=== PATIENT | female | born 1945 | race Caucasian/White ===

== ENCOUNTER 2019-11-30 07:30 | Day surgery (SDC) | payer OTHER ==
[2019-11-29 10:15] LABS: Absolute Lymphocytes (CBC) 0.8 K/uL (0.7-4.9); Basophils % 0.4 % (0-1.3); Hematocrit 40.9 % (36.0-45.0); Lymphocytes % 8.5 % (15.3-44.8); MPV 9.9 fL (7.6-11.3); RBC Red Blood Cell Count 4.86 M/uL (3.86-4.86)
--- NOTE | 2019-11-29 10:18 | RAD REPORT ---
EXAM DESCRIPTION: Zaid Yates And [place] (2 Views)11/29/2019 10:09 am CLINICAL HISTORY: Preop for cardiac catheterization COMPARISON: 2016 FINDINGS: Small to moderate left pleural effusion is suspected Mild left lung opacities Right lung appears clear of acute infiltrate Heart is markedly enlarged IMPRESSION: Small to moderate left pleural effusion Mild left pulmonary opacities may represent pulmonary edema or pneumonia
[2019-11-29 10:19] LABS: Protime INR 1.04
[2019-11-29 10:24] LABS: Potassium 3.5 mmol/L (3.5-5.1)
--- NOTE | 2019-11-29 11:22 | EKG ---
Test Date: 2019-11-29 Test Time: 08:32:49 [employer] Developer: DIAZ MEASUREMENT RESULTS: Intervals: Rate: 82 DE: 154 QRSD: 108 QT: 400 QTc: 467 [place]: P: 43 DE: 154 QRS: 12 T: 203 INTERPRETIVE STATEMENTS: Sinus rhythm with occasional premature ventricular complexes Incomplete left bundle branch block Left ventricular hypertrophy with repolarization abnormality Abnormal ECG Compared to ECG 01/28/2008 08:57:48 Ventricular premature complex(es) now present Left bundle-branch block now present Electronically Signed On 11-29-19 11:21:18 CDT by Richmond Dove
--- OUTSIDE RECORDS SUMMARY | 2019-11-30 07:41 | XMS REPORT ---
:1945 Author Organization [employer] Care Team Providers Name Role Phone Bridger Segal Provider Role Unavailable Allergies, Adverse Reactions, Alerts Substance Reaction Event Type Amoxicillin Swelling Drug Allergy Problems Problem Type Condition Code Onset Dates Condition Status Assessment Cellulitis of right lower extremity L03.115 Active Problem Coronary artery disease involving I25.10 Active [place] coronary artery of [place] heart without angina pectoris Problem Allergic rhinitis, unspecified J30.9 Active seasonality, unspecified trigger Problem Osteoarthritis of left hip, M16.12 Active unspecified osteoarthritis type Problem Edema of lower extremity due to I87.2 Active peripheral venous insufficiency Problem Mixed hyperlipidemia E78.2 Active Problem GERD without esophagitis K21.9 Active Problem Congestive heart failure, I50.9 Active unspecified HF chronicity, unspecified heart failure type Problem HTN (hypertension), benign I10 Active Assessment Adult BMI 27.0-27.9 kg/sq m Z68.27 Active Assessment GERD without esophagitis K21.9 Active Assessment Congestive heart failure, I50.9 Active unspecified HF chronicity, unspecified heart failure type Assessment HTN (hypertension), benign I10 Active Assessment Coronary artery disease involving I25.10 Active [place] coronary artery of [place] heart without angina pectoris Assessment Mixed hyperlipidemia E78.2 Active Assessment Osteoarthritis of left hip, M16.12 Active unspecified osteoarthritis type Assessment Edema of lower extremity due to I87.2 Active peripheral venous insufficiency Medications Medication Code Code Instructions Start End Status Dosage System Date Date Pravastatin ND 44752414937 40 MG Orally Active 1 tablet Sodium Once a day Carvedilol ND 49554369377 3.125 MG Orally Active take 1 tab BID Fish Oil ND 36601459906 1000 MG Orally Active 1 capsule Once a day Furosemide ND 33918222854 40 MG Orally Active 1 tablet Once a day Entresto ND 89244353127 49-51 MG Orally Active 1 tablet Twice a day Montelukast ND 13626488667 10 MG Active TAKE 1 Sodium TABLET BY MOUTH EVERY DAY Doxycycline ND 65964095241 100 MG Orally Sep 21, Oct 01, Active 1 capsule Hyclate every 12 hrs 2019 2019 Results No Known Results Summary Purpose eClinicalWorks Submission
--- OUTSIDE RECORDS SUMMARY | 2019-11-30 07:41 | XMS REPORT ---
:1945 Author Organization [employer] Care Team Providers Name Role Phone Bridger Segal Provider Role Unavailable Allergies, Adverse Reactions, Alerts Substance Reaction Event Type N.K.D.A. Info Not Available Non Drug Allergy Problems Problem Type Condition Code Onset Dates Condition Status Assessment Allergic rhinitis, unspecified J30.9 Active seasonality, unspecified trigger Assessment Acute non-recurrent maxillary J01.00 Active sinusitis Assessment Upper respiratory tract infection, J06.9 Active unspecified type Problem Osteoarthritis of left hip, M16.12 Active unspecified osteoarthritis type Problem Congestive heart failure, I50.9 Active unspecified HF chronicity, unspecified heart failure type Problem Allergic rhinitis, unspecified J30.9 Active seasonality, unspecified trigger Problem GERD without esophagitis K21.9 Active Problem Coronary artery disease involving I25.10 Active [place] coronary artery of [place] heart without angina pectoris Problem HTN (hypertension), benign I10 Active Problem Mixed hyperlipidemia E78.2 Active Medications Medication Code Code Instructions Start End Status Dosage System Date Date Pravastatin [facility] 11319006965 40 MG Orally Active 1 tablet Sodium Once a day Carvedilol [facility] 09623158375 3.125 MG Orally Active take 1 tab BID Amoxicillin-Pot [facility] 89485820550 875-125 MG Aug 18, Aug 28, Active 1 tablet Clavulanate Orally every 12 2018 2019 hrs Furosemide ND 56142083952 40 MG Orally Active 1 tablet Once a day Montelukast ND 76002783400 10 MG Orally Aug 18, Active 1 tablet Sodium Once a day 2019 Entresto [facility] 33692698320 49-51 MG Orally Active 1 tablet Twice a day Fish Oil [facility] 00086602156 1000 MG Orally Active 1 capsule Once a day Results No Known Results Summary Purpose eClinicalWorks Submission
--- OUTSIDE RECORDS SUMMARY | 2019-11-30 07:41 | XMS REPORT ---
:1945 Author Organization [employer] Care Team Providers Name Role Phone Bridger Segal Provider Role Unavailable Allergies No Known Allergies Problems Problem Type Condition Code Onset Dates Condition Status Problem Congestive heart failure, I50.9 Active unspecified HF chronicity, unspecified heart failure type Problem HTN (hypertension), benign I10 Active Problem Osteoarthritis of left hip, M16.12 Active unspecified osteoarthritis type Problem Coronary artery disease involving I25.10 Active [place] coronary artery of [place] heart without angina pectoris Problem Mixed hyperlipidemia E78.2 Active Problem GERD without esophagitis K21.9 Active Medications No Known Medications Results No Known Results Summary Purpose eClinicalWorks Submission
--- OUTSIDE RECORDS SUMMARY | 2019-11-30 07:41 | XMS REPORT ---
:1945 Author Organization [employer] Care Team Providers Name Role Phone Bridger Segal Provider Role Unavailable Allergies, Adverse Reactions, Alerts Substance Reaction Event Type N.K.D.A. Info Not Available Non Drug Allergy Problems Problem Type Condition Code Onset Dates Condition Status Assessment Congestive heart failure, I50.9 Active unspecified HF chronicity, unspecified heart failure type Assessment Mixed hyperlipidemia E78.2 Active Assessment HTN (hypertension), benign I10 Active Assessment Adult BMI 27.0-27.9 kg/sq m Z68.27 Active Assessment GERD without esophagitis K21.9 Active Assessment Coronary artery disease involving I25.10 Active [place] coronary artery of [place] heart without angina pectoris Assessment Osteoarthritis of left hip, M16.12 Active unspecified osteoarthritis type Problem Congestive heart failure, I50.9 Active unspecified HF chronicity, unspecified heart failure type Problem HTN (hypertension), benign I10 Active Problem Osteoarthritis of left hip, M16.12 Active unspecified osteoarthritis type Problem Coronary artery disease involving I25.10 Active [place] coronary artery of [place] heart without angina pectoris Problem Mixed hyperlipidemia E78.2 Active Problem GERD without esophagitis K21.9 Active Medications Medication Code Code Instructions Start End Status Dosage System Date Date Carvedilol [facility] 20319464806 3.125 MG Orally Oct 01, Active take 1 tab BID 2018 Pravastatin ND 91210573355 40 MG Orally Active 1 tablet Sodium Once a day Furosemide ND 47534039081 40 MG Orally Active 1 tablet Once a day Entresto [facility] 19422371956 49-51 MG Orally Active 1 tablet Twice a day Fish Oil ND 92409412964 1000 MG Orally Active 1 capsule Once a day Results No Known Results Summary Purpose eClinicalWorks Submission
--- OUTSIDE RECORDS SUMMARY | 2019-11-30 07:42 | XMS REPORT ---
:1945 Author Organization eClinicalWorks Care Team Providers Name Role Phone Bridger Segal Provider Role Unavailable Allergies No Known Allergies Problems Problem Type Condition Code Onset Dates Condition Status Problem Coronary artery disease involving I25.10 Active [place] coronary artery of [place] heart without angina pectoris Problem Mixed hyperlipidemia E78.2 Active Problem GERD without esophagitis K21.9 Active Assessment Edema of lower extremity due to I87.2 Active peripheral venous insufficiency Assessment Congestive heart failure, I50.9 Active unspecified HF chronicity, unspecified heart failure type Assessment HTN (hypertension), benign I10 Active Assessment Hypokalemia E87.6 Active Problem Venous stasis dermatitis of both I87.2 Active lower extremities Problem Venous insufficiency I87.2 Active Problem Edema of lower extremity due to I87.2 Active peripheral venous insufficiency Problem Congestive heart failure, I50.9 Active unspecified HF chronicity, unspecified heart failure type Problem HTN (hypertension), benign I10 Active Problem Allergic rhinitis, unspecified J30.9 Active seasonality, unspecified trigger Problem Osteoarthritis of left hip, M16.12 Active unspecified osteoarthritis type Medications Medication Code Code Instructions Start End Status Dosage System Date Date Entresto [facility] 67580924323 49-51 MG Orally Active 1 tablet Twice a day Pravastatin ND 90466222919 40 MG Orally Active 1 tablet Sodium Once a day Carvedilol ND 20031922544 3.125 MG Orally Active take 1 tab BID Furosemide ND 66178777032 40 MG Orally Active 1 tablet Once a day Fish Oil ND 23487930769 1000 MG Orally Active 1 capsule Once a day Klor-Con M20 [facility] 77660508401 20 MEQ Orally Oct 12January 09, Active 1 tablet Once a day 2019 2019 with food Montelukast [facility] 58390450737 10 MG Active TAKE 1 Sodium TABLET BY MOUTH EVERY DAY Results No Known Results Summary Purpose eClinicalWorks Submission
--- OUTSIDE RECORDS SUMMARY | 2019-11-30 07:42 | XMS REPORT ---
:1945 Author Organization eClinicalWorks Care Team Providers Name Role Phone Bridger Segal Provider Role Unavailable Allergies, Adverse Reactions, Alerts Substance Reaction Event Type Amoxicillin Swelling Drug Allergy Problems Problem Type Condition Code Onset Dates Condition Status Problem GERD without esophagitis K21.9 Active Problem Coronary artery disease involving I25.10 Active [place] coronary artery of [place] heart without angina pectoris Problem Venous stasis dermatitis of both I87.2 Active lower extremities Assessment History of fall Z91.81 Active Problem Allergic rhinitis, unspecified J30.9 Active seasonality, unspecified trigger Problem Venous insufficiency I87.2 Active Problem HTN (hypertension), benign I10 Active Problem Mixed hyperlipidemia E78.2 Active Problem Osteoarthritis of left hip, M16.12 Active unspecified osteoarthritis type Problem Congestive heart failure, I50.9 Active unspecified HF chronicity, unspecified heart failure type Assessment Adult BMI 27.0-27.9 kg/sq m Z68.27 Active Assessment GERD without esophagitis K21.9 Active Assessment Venous stasis dermatitis of both I87.2 Active lower extremities Assessment Venous insufficiency I87.2 Active Assessment Congestive heart failure, I50.9 Active unspecified HF chronicity, unspecified heart failure type Assessment HTN (hypertension), benign I10 Active Assessment Coronary artery disease involving I25.10 Active [place] coronary artery of [place] heart without angina pectoris Assessment Medicare annual wellness visit, Z00.00 Active subsequent Assessment Osteoarthritis of left hip, M16.12 Active unspecified osteoarthritis type Assessment Mixed hyperlipidemia E78.2 Active Medications Medication Code Code Instructions Start End Status Dosage System Date Date Entresto [facility] [place] 2] 09588429526 49-51 MG Orally Active 1 tablet Twice a day Fish Oil ND 80178265678 1000 MG Orally Active 1 capsule Once a day Carvedilol ND 74972465963 3.125 MG Orally Active take 1 tab BID Montelukast ND 44948433062 10 MG Active TAKE 1 Sodium TABLET BY MOUTH EVERY DAY Furosemide ND 92943740871 40 MG Orally Active 1 tablet Once a day Pravastatin ND 48186110642 40 MG Orally Active 1 tablet Sodium Once a day Results No Known Results Summary Purpose eClinicalWorks Submission
[2019-11-30] MEDS ORDERED: ATROPINE SULF 1 MG/10 ML SYR IV ONE (08:04)
[2019-11-30] MEDS ORDERED: LIDOCAINE 1% 20 ML MDV ONE (08:04)
[2019-11-30] MEDS ORDERED: HEPA 1000U/500MLS 1,000 UNIT/500 ML BAG IV ONE (08:04)
[2019-11-30] MEDS ORDERED: NA CHLORIDE 0.9% 0 ML ONE (08:04)
[2019-11-30] MEDS ORDERED: NA CHLORIDE 0.9% 500 ML ONE (08:31)
[2019-11-30] MEDS ORDERED: MIDAZOLAM HCL 2 MG/2 ML INJ ONE (09:50)
[2019-11-30] MEDS ORDERED: FENTANYL CITR 100 MCG/2 ML ONE (09:51)
[2019-11-30] MEDS ORDERED: ACETAMINOPHEN 325 MG TABLET ONE (11:19)
[2019-11-30 12:31] VITALS: BP 140/82; TEMP 99.5; O2SAT 100
--- NOTE | 2019-11-30 13:45 | OP ---
Surgeon: Richmond Dove MD Stitch Burnisher: Alonso Dubose. The patient admitted on 11/30/2019 to the label cutter as an outpatient. Procedures: Left heart catheterization, selective coronary arteriogram, and left ventriculogram. 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 History Of Present Illness: Ms. León is 74. She was brought to the label cutter today, prepped and dr mcneil in the routine sterile fashion, given Versed for IV sedation. A 6-Wol[place] sheath introduced in t he right common femoral artery successfully. Angio-Seal was used to close the case. Gasper cathete r left and right were used to inject the left main and the right main respectively. The right castle ry was right dominant, normal. Her circumflex was normal. Her left main was normal. Her LAD had ab out a 20% stenosis to 30% stenosis after the first diagonal. A pigtail catheter was used to cross th e aortic valve successfully. LV-gram there showed severe global hypokinesis with an ejection fractio n about 20% to 25%. Her left ventricular end-diastolic pressure was 14 mmHg. There was no gradient. Complications: None. Blood Loss: 5 mL. Final Diagnosis: Minimal coronary artery disease. Severe global hypokinesis. Plan: To continue medical therapy with Entresto. For now, probably increase the Entresto in every m onth interval and do an echocardiogram in about 3 to 4 months and eventually consider defibrillator p acemaker if we have to. She should be on a statin. She should be on Lasix, on low dose of beta-bloc kers. Anesthesia: Total conscious sedation was 45 minutes. Patient will go home today after 2 hours bed rest and she will see me in the office in the next 2 wekarly ELIZABETH/KASIA Voice ID: [id number] Report ID: [id number]
== END 2019-11-30 12:31 | disposition home or self-care (01) ==
LOC: CCL 07:30
DX: I11.0 Hypertensive heart disease with heart failure (principal); I50.22 Chronic systolic (congestive) heart failure; I25.10 Atherosclerotic heart disease of native coronary artery without angina pectoris; E78.2 Mixed hyperlipidemia; Z88.0 Allergy status to penicillin
CPT/HCPCS: 93005; 85025; 80048; 36415; 85610; 85730; 71046; 93458; C1893; C1760; J2250; J3010; J7040; J0583

== ENCOUNTER 2022-12-17 11:27 | Inpatient (IN) | payer MEDICARE ==
--- OUTSIDE RECORDS SUMMARY | 2022-12-17 11:38 | XMS REPORT | Continuity of Care Document ---
:[address] [facility] t Address [address] [place] [address] [place] [id number] Care Team Providers Name Role Phone Clarice Dexter Primary Care Physician Clarice Dexter Attending Clinician Unavailable Marilyn Pinto Attending Clinician Unavailable Bridger Segal Attending Clinician Unavailable ASHLEY HOLMAN Attending Clinician Unavailable Mei-Mbayo_A_AH Attending Clinician Unavailable ASHLEY HOLMAN Attending Clinician Unavailable Mei-Mbayo_A_AH Admitting Clinician Unavailable Payers Payer Name Policy Type Policy Number Effective Date Expiration Date S lissette COUNTS INCLUDE 234 BEDS AT THE [facility] [id number] 2021 OON 00:00:00 [employer] MEDICARE 53 [id number] 2021 2021 Common 00:00:00 00:00:00 [facility] [id number] 2021 (MEDICARE 00:00:00 REPLACEMENT HMO) HU[employer]NA MEDICARE 53 [id number] 2021 Common 00:00:00 [facility] OF [place] - [id number] 2019 [employer]ANPLUS 00:00:00 (MEDICARE REPLACEMENT/ADVAN TAGE - HMO) Problems Condition Condition Condition Status Onset Resolution Last Treating Co mments Source Name Details Category Date Date Treatment Clinician Date [id number] Balance Problem Commo n problem Spirit - [facility] [id number] Coronary Problem Com mon 107 artery Spirit disease - [facility] involving [facility] coronary Medical artery of [place] heart without angina pectoris [id number] Congestive Problem Com mon heart Spirit failure, - [facility] un[facility]ie [facility] HF [facility] chronicity Medica l , Center unspecifie d heart failure type [id number] Mixed Problem Common hyperlipid Spirit emia - [facility]I [facility] [id number] GERD Problem Common without Spirit esophagiti [facility] s [facility] [id number] Allergic Problem Commo n rhinitis, Spirit unspecifie - [facility] d [facility] seasonalit [facility] y, Medical unspecifie Center d trigger Peripheral Stasis Problem Commo n venous dermatitis Spirit insufficie of both - CHI ncy legs [facility] [id number] Prediabete Problem Co mmon s Spirit [facility] Type II Controlled Problem Comm on diabetes type 2 Spirit mellitus diabetes - [facility] without mellitus St complicati without kes on complicati Medica l on, Center without long-term current use of insulin [id number] Osteoarthr Problem C ommon [id number] itis of Spirit left hip, - [facility] unspec[facility] osteoarthr Medica l itis type Center [id number] Ulcer of Problem Comm on right Spirit lower - [facility] extremity, St limited to [facility] Medical of skin Center [id number] HTN Problem Common (hypertens Spirit ion), - [facility]I benign [facility] [id number] Ulcer of Problem Comm on right Spirit lower leg, - [facility]I with St unspecifie [facility] d severity Medica l Center [id number] Hypokalemi Problem Com mon a Spirit [facility] [id number] ICD Problem Common (implantab Spirit le - [facility]I cardiovert [facility] er-defibri [facility] llator) in Medica l place Center Allergies, Adverse Reactions, Alerts Allergy Allergy Status Severity Reaction(s) Onset Inactive Treating Comm ents Source Name Type Date Date Clinician amoxicil amoxicil Active Swelling Comm on chyna chyna Spirit - [facility] Social History Social Habit Start Date Stop Date Quantity Comments Source History of Tobacco Use Co mmon [facility] Sex Assigned At Com [facility] Smoking Status Start Date Stop Date Source Tobacco smoking [facility] Sm[facility] Medications Ordered Filled Start Stop Current Ordering Indication Dosage Frequency Signature Comments Components Source Medication Medication Date Date Medication? Clinician (SIG) Name Name Chadwick Holdertawade No 1{table QD n Calcium n Calcium 1-10 t} 20 MG 20 MG 00:00: 00 Atorvastati Atorvastati No 1{table QD Atorvastat n Calcium n Calcium 1-10 t} in Calcium 20 MG 20 MG 00:00: 20 MG 00 Montelukast Montelukast 2018-09 Yes Marilyn TAKE 1 Common Sodium Sodium 2-11 Millender TABLET BY S pirit 00:00: MOUTH - [facility]I 00 EVERY DAY [facility] Carvedilol Carvedilol Yes Marilyn take 1 tab Common 1-24 Millender Spirit 00:00: - [facility] 00 [facility] Pravastatin Pravastatin Yes Marilyn 1 tablet Common [facility] Furosemide Furosemide Yes Marilyn 2 tablets Common Millender [facility] Entresto Entresto Yes Marilyn 1 tablet Co mmon Millender [facility] Fish Oil Fish Oil Yes Marilyn 1 capsule C ommon [facility] Metolazone Metolazone Yes Marilyn 1 tablet Common Millender [facility] Melatonin Melatonin Yes Marilyn 1 tablet Common Millender at bedtime Spir it as needed [facility] Vitamin D Vitamin D Yes Marilyn 1 tablet Common Millender [facility] Ferrous Ferrous No Sulfate 325 Sulfate 325 (65 Fe) MG (65 Fe) MG Melatonin 3 Melatonin 3 No 1{table QD MG MG t_at_be dtime_a s_neede d} Fish Oil Fish Oil No 1{capsu QD 1000 MG 1000 MG le} Entresto Entresto No 1{table BID 49-51 MG 49-51 MG t} Ferrous Ferrous No 1{table QD Sulfate 325 Sulfate 325 t} (65 Fe) mg (65 Fe) mg metOLazone metOLazone No 1{table 5 MG 5 MG t} Carvedilol Carvedilol No BID 3.125 MG 3.125 MG Montelukast Montelukast No Sodium 10 Sodium 10 MG MG Furosemide Furosemide No 2{table Furosemide 40 MG 40 MG ts} 40 MG Vitamin D Vitamin D No 1{table QD Vitamin D 25 MCG 25 MCG t} 25 MCG (1000 UT) (1000 UT) (1000 UT) Ferrous Ferrous No Ferrous Sulfate 325 Sulfate 325 Sulfate (65 Fe) MG (65 Fe) MG 325 (65 Fe) MG Melatonin 3 Melatonin 3 No 1{table QD Melatonin MG MG t_at_be 3 MG dtime_a s_neede d} Fish Oil Fish Oil No 1{capsu QD Fish Oil 1000 MG 1000 MG le} 1000 MG Entresto Entresto No 1{table BID Entresto 49-51 MG 49-51 MG t} 49-51 MG Ferrous Ferrous No 1{table QD Ferrous Sulfate 325 Sulfate 325 t} Sulfate (65 Fe) mg (65 Fe) mg 325 (65 Fe) mg metOLazone metOLazone No 1{table metOLazone 5 MG 5 MG t} 5 MG Carvedilol Carvedilol No BID Carvedilol 3.125 MG 3.125 MG 3.125 MG Montelukast Montelukast No Montelukas Sodium 10 Sodium 10 t Sodium MG MG 10 MG Ferrous Ferrous No 1{table QD Ferrous Sulfate 325 Sulfate 325 t} Sulfate (65 Fe) mg (65 Fe) mg 325 (65 Fe) mg Vitamin D Vitamin D No 1{table QD Vitamin D 25 MCG 25 MCG t} 25 MCG (1000 UT) (1000 UT) (1000 UT) Entresto Entresto No 1{table BID Entresto 49-51 MG 49-51 MG t} 49-51 MG metOLazone metOLazone No 1{table metOLazone 5 MG 5 MG t} 5 MG Furosemide Furosemide No 2{table Furosemide 40 MG 40 MG ts} 40 MG Turmeric Turmeric No Turmeric Curcumin Curcumin Curcumin 500 MG 500 MG 500 MG Ed[place] 3 340 [place] 3 340 No 1{capsu QD [place] 3 MG MG le} 340 MG Montelukast Montelukast No Montelukas Sodium 10 Sodium 10 t Sodium MG MG 10 MG Melatonin 3 Melatonin 3 No 1{table QD Melatonin MG MG t_at_be 3 MG dtime_a s_neede d} Fish Oil Fish Oil No 1{capsu QD Fish Oil 1200 MG 1200 MG le} 1200 MG Atorvastati Atorvastati No 1{table QD Atorvastat n Calcium n Calcium t} in Calcium 20 MG 20 MG 20 MG Ferrous Ferrous No Ferrous Sulfate 325 Sulfate 325 Sulfate (65 Fe) MG (65 Fe) MG 325 (65 Fe) MG Carvedilol Carvedilol No BID Carvedilol 3.125 MG 3.125 MG 3.125 MG Vitamin C Vitamin C No Vitamin C 500 MG 500 MG 500 MG Ferrous Ferrous No 1{table QD Ferrous Sulfate 325 Sulfate 325 t} Sulfate (65 Fe) mg (65 Fe) mg 325 (65 Fe) mg Vitamin D Vitamin D No 1{table QD Vitamin D 25 MCG 25 MCG t} 25 MCG (1000 UT) (1000 UT) (1000 UT) Entresto Entresto No 1{table BID Entresto 49-51 MG 49-51 MG t} 49-51 MG metOLazone metOLazone No 1{table metOLazone 5 MG 5 MG t} 5 MG Furosemide Furosemide No 2{table Furosemide 40 MG 40 MG ts} 40 MG Turmeric Turmeric No Turmeric Curcumin Curcumin Curcumin 500 MG 500 MG 500 MG [place] 3 340 [place] 3 340 No 1{capsu QD [place] 3 MG MG le} 340 MG Montelukast Montelukast No Montelukas Sodium 10 Sodium 10 t Sodium MG MG 10 MG Melatonin 3 Melatonin 3 No 1{table QD Melatonin MG MG t_at_be 3 MG dtime_a s_neede d} Fish Oil Fish Oil No 1{capsu QD Fish Oil 1200 MG 1200 MG le} 1200 MG Atorvastati Atorvastati No 1{table QD Atorvastat n Calcium n Calcium t} in Calcium 20 MG 20 MG 20 MG Ferrous Ferrous No Ferrous Sulfate 325 Sulfate 325 Sulfate (65 Fe) MG (65 Fe) MG 325 (65 Fe) MG Carvedilol Carvedilol No BID Carvedilol 3.125 MG 3.125 MG 3.125 MG Vitamin C Vitamin C No Vitamin C 500 MG 500 MG 500 MG [place] 3 340 [place] 3 340 No 1{capsu QD [place] 3 MG MG le} 340 MG Turmeric Turmeric No Turmeric Curcumin Curcumin Curcumin 500 MG 500 MG 500 MG Carvedilol Carvedilol No BID Carvedilol 3.125 MG 3.125 MG 3.125 MG Ferrous Ferrous No Ferrous Sulfate 325 Sulfate 325 Sulfate (65 Fe) MG (65 Fe) MG 325 (65 Fe) MG metOLazone metOLazone No 1{table metOLazone 5 MG 5 MG t} 5 MG Atorvastati Atorvastati No 1{table QD Atorvastat n Calcium n Calcium t} in Calcium 20 MG 20 MG 20 MG Vitamin D Vitamin D No 1{table QD Vitamin D 25 MCG 25 MCG t} 25 MCG (1000 UT) (1000 UT) (1000 UT) Vitamin C Vitamin C No Vitamin C 500 MG 500 MG 500 MG Furosemide Furosemide No 2{table Furosemide 40 MG 40 MG ts} 40 MG Melatonin 3 Melatonin 3 No 1{table QD Melatonin MG MG t_at_be 3 MG dtime_a s_neede d} Ferrous Ferrous No 1{table QD Ferrous Sulfate 325 Sulfate 325 t} Sulfate (65 Fe) mg (65 Fe) mg 325 (65 Fe) mg Entresto Entresto No 1{table BID Entresto 49-51 MG 49-51 MG t} 49-51 MG Montelukast Montelukast No Montelukas Sodium 10 Sodium 10 t Sodium MG MG 10 MG Fish Oil Fish Oil No 1{capsu QD Fish Oil 1200 MG 1200 MG le} 1200 MG [place] 3 340 [place] 3 340 No 1{capsu QD [place] 3 MG MG le} 340 MG Turmeric Turmeric No Turmeric Curcumin Curcumin Curcumin 500 MG 500 MG 500 MG Carvedilol Carvedilol No BID Carvedilol 3.125 MG 3.125 MG 3.125 MG Ferrous Ferrous No Ferrous Sulfate 325 Sulfate 325 Sulfate (65 Fe) MG (65 Fe) MG 325 (65 Fe) MG metOLazone metOLazone No 1{table metOLazone 5 MG 5 MG t} 5 MG Ferrous Ferrous No 1{table QD Ferrous Sulfate 325 Sulfate 325 t} Sulfate (65 Fe) mg (65 Fe) mg 325 (65 Fe) mg Vitamin D Vitamin D No 1{table QD Vitamin D 25 MCG 25 MCG t} 25 MCG (1000 UT) (1000 UT) (1000 UT) Vitamin C Vitamin C No Vitamin C 500 MG 500 MG 500 MG Atorvastati Atorvastati No 1{table QD Atorvastat n Calcium n Calcium t} in Calcium 20 MG 20 MG 20 MG Melatonin 3 Melatonin 3 No 1{table QD Melatonin MG MG t_at_be 3 MG dtime_a s_neede d} Furosemide Furosemide No 2{table Furosemide 40 MG 40 MG ts} 40 MG Entresto Entresto No 1{table BID Entresto 49-51 MG 49-51 MG t} 49-51 MG Montelukast Montelukast No Montelukas Sodium 10 Sodium 10 t Sodium MG MG 10 MG Fish Oil Fish Oil No 1{capsu QD Fish Oil 1200 MG 1200 MG le} 1200 MG Fish Oil Fish Oil No 1{capsu QD Fish Oil 1000 MG 1000 MG le} 1000 MG Furosemide Furosemide No 2{table Furosemide 40 MG 40 MG ts} 40 MG metOLazone metOLazone No 1{table metOLazone 5 MG 5 MG t} 5 MG Ferrous Ferrous No Ferrous Sulfate 325 Sulfate 325 Sulfate (65 Fe) MG (65 Fe) MG 325 (65 Fe) MG Montelukast Montelukast No Montelukas Sodium 10 Sodium 10 t Sodium MG MG 10 MG Carvedilol Carvedilol No BID Carvedilol 3.125 MG 3.125 MG 3.125 MG Melatonin 3 Melatonin 3 No 1{table QD Melatonin MG MG t_at_be 3 MG dtime_a s_neede d} Pravastatin Pravastatin No 1{table Pravastati Sodium 40 Sodium 40 t} n Sodium MG MG 40 MG Vitamin D Vitamin D No 1{table QD Vitamin D 25 MCG 25 MCG t} 25 MCG (1000 UT) (1000 UT) (1000 UT) Entresto Entresto No 1{table BID Entresto 49-51 MG 49-51 MG t} 49-51 MG Fish Oil Fish Oil No 1{capsu QD Fish Oil 1000 MG 1000 MG le} 1000 MG Furosemide Furosemide No 2{table Furosemide 40 MG 40 MG ts} 40 MG metOLazone metOLazone No 1{table metOLazone 5 MG 5 MG t} 5 MG Ferrous Ferrous No Ferrous Sulfate 325 Sulfate 325 Sulfate (65 Fe) MG (65 Fe) MG 325 (65 Fe) MG Montelukast Montelukast No Montelukas Sodium 10 Sodium 10 t Sodium MG MG 10 MG Carvedilol Carvedilol No BID Carvedilol 3.125 MG 3.125 MG 3.125 MG Melatonin 3 Melatonin 3 No 1{table QD Melatonin MG MG t_at_be 3 MG dtime_a s_neede d} Pravastatin Pravastatin No 1{table Pravastati Sodium 40 Sodium 40 t} n Sodium MG MG 40 MG Vitamin D Vitamin D No 1{table QD Vitamin D 25 MCG 25 MCG t} 25 MCG (1000 UT) (1000 UT) (1000 UT) Entresto Entresto No 1{table BID Entresto 49-51 MG 49-51 MG t} 49-51 MG Furosemide Furosemide No 2{table 40 MG 40 MG ts} Vitamin D Vitamin D No 1{table QD 25 MCG 25 MCG t} (1000 UT) (1000 UT) Klor-Con Klor-Con No Marilyn 1 tablet C ommon M20 M20 06-07 Millender with food Spir it 00:00 - [facility]I :00 [facility] Immunizations Ordered Immunization Filled Immunization Date Status Commen ts Source Name Name [place] [id number] 2021-09-12 Completed Co mmon Spirit Vaccine (Low Dose Vaccine (Low Dose 16:11:00 - [facility] Booster) [place] [id number] 2021-09-12 Completed Co mmon Spirit Vaccine (Low Dose Vaccine (Low Dose 16:11:00 - [facility] Booster) Booster) [place] [id number] 2021-09-12 Completed Co mmon Spirit Vaccine (Low Dose Vaccine (Low Dose 16:11:00 - [facility] Booster) Booster) [place] [id number] 2021-09-12 Completed Co mmon Spirit Vaccine (Low Dose Vaccine (Low Dose 16:11:00 - [facility] Booster) Booster) [place] [id number] 2021-09-12 Completed Co mmon Spirit Vaccine (Low Dose Vaccine (Low Dose 16:11:[address] [facility] Booster) Booster) [place] [id number] 2021-09-12 Completed Co mmon Spirit Vaccine (Low Dose Vaccine (Low Dose 16:11:00 - [facility] Booster) Booster) [facility] Moderna COVID-19 Moderna COVID-19 2021-09-12 Completed Co mmon Spirit Vaccine (Low Dose Vaccine (Low Dose 16:11:00 - [facility] Booster) Booster) [facility] COVID-19 Vaccine COVID-19 Vaccine 2020-11-17 Completed Co mmon Spirit (Myranda) (Myranda) 13:54:00 [facility] COVID-19 Vaccine COVID-19 Vaccine 2020-11-17 Completed Co mmon Spirit (Myranda) (Myranda) 13:54:00 [facility] COVID-19 Vaccine COVID-19 Vaccine 2020-11-17 Completed Co mmon Spirit (Myranda) (Myranda) 13:54:00 [facility] COVID-19 Vaccine COVID-19 Vaccine 2020-11-17 Completed Co mmon Spirit (Myranda) (Myranda) 13:54:00 [facility] COVID-19 Vaccine COVID-19 Vaccine 2020-11-17 Completed Co mmon Spirit (Myranda) (Myranda) 13:54:00 [facility] COVID-19 Vaccine COVID-19 Vaccine 2020-11-17 Completed Co mmon Spirit (Myranda) (Myranda) 13:54:00 [facility] COVID-19 Vaccine COVID-19 Vaccine 2020-11-17 Completed Co mmon Spirit (Myranda) (Myranda) 13:54:00 [facility] COVID-19 Vaccine COVID-19 Vaccine 2020-11-17 Completed Co mmon Spirit (Myranda) (Myranda) 13:54:00 [facility] Vital Signs Vital Name Observation Time Observation Value Comments Source height 2021-12-18 14:00:00 65.5 [in_i] [facility] weight 2021-12-18 14:00:00 180 [lb_av] [facility] temperature 2021-12-18 14:00:00 97.7 [degF] [facility] bmi 2021-12-18 14:00:00 29.49 kg/m2 Common [facility] oximetry 2021-12-18 14:00:00 100 % [facility] respiratory rate 2021-12-18 14:00:00 18 /min Comm on [facility] blood pressure 2021-12-18 14:00:00 152 mm[Hg] Common [facility] - systolic [facility] blood pressure 2021-12-18 14:00:00 62 mm[Hg] Common [facility] - diastolic [facility] height 2021-12-18 14:40:00 65.5 [in_i] [facility] weight 2021-12-18 14:40:00 180 [lb_av] [facility] temperature 2021-12-18 14:40:00 97.7 [degF] [facility] bmi 2021-12-18 14:40:00 29.49 kg/m2 [facility] oximetry 2021-12-18 14:40:00 100 % [facility] respiratory rate 2021-12-18 14:40:00 18 /min Comm on [facility] blood pressure 2021-12-18 14:40:00 121 mm[Hg] Common [facility] systolic [facility] blood pressure 2021-12-18 14:40:00 76 mm[Hg] Common [facility] diastolic [facility] Procedures This patient has no known procedures. Encounters Start End Encounter Admission Attending Care Care Encounter Source Date/Time Date/Time Type Type Clinicians Facility Department ID 2022-12-12 Outpatient STLMLC STLMLC [id number] Common 15:34:00 [id number] [facility] 2022-10-07 Outpatient STLMLC STLMLC [id number] Common 11:33:01 11949 [facility] 2022-09-04 Outpatient Clarice Dexter STLMLC STLMLC [id number] Common 16:39:00 71950 [facility] 2022-07-25 Outpatient [facility] [id number] [place] 11:44:03 [id number] [facility] 2022-06-06 Outpatient Dexter, Na STLMLC STLMLC [id number] Common 14:49:01 [facility] 2021-11-28 Outpatient Dexter, Na STLMLC STLMLC [id number] Common 10:00:01 [facility] 2021-10-03 Outpatient Dexter, Na STLMLC STLMLC [id number] Common 14:32:34 [facility] 2021-10-03 Outpatient Dexter, Na STLMLC STLMLC [id number] Common 14:31:40 [facility] 2021-10-03 Outpatient Dexter, Na STLMLC STLMLC [id number] Common 14:31:26 [facility] 2021-10-03 Outpatient Dexter, Na STLMLC STLMLC [id number] Common 14:29:56 [facility] 2021-10-03 Outpatient Dexter, Na STLMLC STLMLC [id number] Common 12:47:01 [facility] 2021-10-03 Outpatient Dexter, Na STLMLC STLMLC [id number] Common 12:46:27 [id number] [facility] 2021-10-03 Outpatient Dexter, Na STLMLC STLMLC [id number] Common 12:40:45 [id number] [facility] 2021-10-03 Outpatient Dexter, Na STLMLC STLMLC [id number] Common 12:39:41 [id number] [facility] 2021-10-03 Outpatient STLMLC STLMLC [id number] Common 12:27:20 55316 [facility] 2021-10-03 Outpatient STLMLC STLMLC [id number] Common 12:26:32 [id number] [facility] 2021-10-03 Outpatient STLMLC STLMLC [id number] Common 12:18:52 [id number] [facility] 2021-10-03 Outpatient Millender, STLMLC STLMLC [id number] Common 12:16:55 Marilyn 52584 [facility] 2021-10-03 Outpatient Millender, STLMLC STLMLC [id number] Common 11:44:45 Marilyn [id number] [facility] 2021-10-03 Outpatient Millender, STLMLC STLMLC [id number] Common 11:44:22 Marilyn 18293 [facility] 2021-10-03 Outpatient STLMLC STLMLC [id number] Common 11:43:12 30518 [facility] 2021-10-03 Outpatient STLMLC STLMLC [id number] Common 11:33:27 14077 [facility] 2021-10-03 Outpatient Segal, STLMLC STLMLC [id number] Common 11:23:14 [facility] [address] [facility] 2021-07-25 Outpatient HEM[facility], [facility] [id number] [place] 11:49:27 [facility] 2021-04-30 Outpatient HEMATPOUR, [facility] [id number] [place] 15:44:40 [facility] 2021-01-13 Outpatient HEMATPOUR, [facility] [id number] [place] 03:03:23 [facility] 2022-07-01 2022-07-01 (TEL) STLMLC STLMLC [id number] Co mmon 00:00:00 00:00:00 [facility] 2022-03-22 2022-03-22 Outpatient DMG DMG [id number] [facility] 03:56:00 03:56:00 0715 [facility] 2022-03-21 2022-03-21 OL DIG E/M STLMLC STLMLC [id number] Common 00:00:00 00:00:00 [facility] 11-20 Spir it MIN [facility] 2021-12-18 2021-12-18 SUB ANNUAL STLMLC STLMLC [id number] Common 00:00:00 00:00:00 [facility] - [facility] VISIT [facility] 2021-12-18 2021-12-18 OFFICE STLMLC STLMLC [id number] Co mmon 00:00:00 00:00:00 VISIT EST Spir it PT LEVEL 3 - [facility] 2021-11-08 2021-11-08 (TEL) STLMLC STLMLC [id number] Co mmon 00:00:00 00:00:00 Spirit [facility] 2021-10-22 2021-10-22 Outpatient DMG DM [id number] [facility] 12:00:00 12:00:00 0214 [facility] 2021-09-17 2021-09-17 OL DIG E/M STLMLC STLMLC [id number] Common 00:00:00 00:00:00 C 11-20 Spir it MIN - [facility] 2021-09-12 2021-09-12 (COVID STLMLC STLMLC [id number] Co mmon 00:00:00 00:00:00 Inj) COVID Spi rit Injection - [facility] 2021-09-10 2021-09-10 (TEL) STLMLC STLMLC [id number] Co mmon 00:00:00 00:00:00 [facility] 2021-08-28 2021-08-28 Telephone Hematpour, UTP 6400 [id number] [place] 00:00:00 00:00:[address] [id number] Health [id number] 1 2021-06-28 2021-06-28 Telephone [facility], UTP 6400 [id number] [place] 00:00:00 00:00:[address] [id number] Health [id number] 1 2021-06-06 2021-06-06 [place] [id number] [facility] 08:01:00 08:01:00 0929 Medica l Group 2021-03-20 2021-03-20 Telephone Hematpour, UTP 6400 [id number] [place] 00:00:00 00:00:00 Ashley REAGAN [id number] [facility] [id number] 1 2021-03-09 2021-03-09 Outpatient STLMLC STLMLC [id number] Common 00:00:00 00:00:00 [facility] 2021-03-06 2021-03-06 Outpatient STLMLC STLMLC [id number] Common 00:00:00 00:00:00 [facility] 2021-03-05 2021-03-05 Outpatient Mei-Mbayo VFP VFP [id number] [place] 06:02:00 06:02:00 _A_ [id number] Family Pract[facility] e 2020-12-14 2020-12-14 Outpatient DMG DMG [id number] [facility] 08:00:00 08:00:00 0408 Medica l Group 2020-12-07 2020-12-07 Outpatient STLMLC STLMLC [id number] Common 00:00:00 00:00:00 [facility] 2020-12-07 2020-12-07 Outpatient STLMLC STLMLC [id number] Common 00:00:00 00:00:00 [facility] 2020-11-17 2020-11-17 Outpatient STLMLC STLMLC [id number] Common 00:00:00 00:00:00 [facility] 2020-10-09 2020-10-09 Outpatient STLMLC STLMLC [id number] Common 00:00:00 00:00:00 [facility] 2020-08-18 2020-08-18 Outpatient STLMLC STLMLC [id number] Common 00:00:00 00:00:00 [facility] 2020-05-18 2020-05-18 Out[facility] [id number] Common 09:00:00 09:00:[address] [facility] [facility] 2020-02-03 2020-02-04 Outpatient HEMATPOUR, [facility] CAR [id number] [facility] 12:02:00 09:11:00 ASHLEY 2019-11-04 2019-11-04 Outpatient Mei-Mbayo VFP VFP [id number] [facility] 12:54:00 12:54:00 _A_AH [id number] Family Practic e 2019-11-04 2019-11-04 Outpatient Mei-Mbayo VFP VFP [id number] [facility] 12:54:00 12:54:00 _A_AH [id number] Family Practic e 2019-11-04 2019-11-04 Outpatient Mei-Mbayo VFP VFP [id number] [facility] 12:54:00 12:54:00 _A_AH [id number] Family Practic e 2019-11-04 2019-11-04 Outpatient Mei-Mbayo VFP VFP [id number] [facility] 12:54:00 12:54:00 _A_AH [id number] Family Practic e 2019-10-08 2019-10-08 Out[facility] [id number] Common 06:38:00 06:38:00 [facility] [address] [facility] 2019-10-06 2019-10-06 Out[facility] [id number] Common 16:00:00 16:00:00 [facility] [address] [facility] 2019-09-21 2019-09-21 Outpatient [facility] [id number] Common 11:00:00 11:00:00 [facility] [address] [address] [facility] 2019-08-18 2019-08-18 Outpatient [facility] [id number] Common 10:00:00 10:00:00 [facility] [address] [address] [facility] 2018-10-01 2018-10-01 Out[facility] [id number] Common 09:42:00 09:42:00 [facility] [address] [address] [facility] 2018-10-01 2018-10-01 Out[facility] [id number] Common 09:30:00 09:30:00 [facility] [address] [facility] Results This patient has no known results.
[2022-12-17] MEDS ORDERED: NA CHLORIDE 0.9% 1,000 ML ONE (11:56)
[2022-12-17 12:24] LABS: Absolute Lymphocytes (CBC) 0.8 K/uL (0.7-4.9); Hematocrit 46.2 % (36.0-45.0); Lymphocytes % 6.5 % (15.3-44.8); MCV 86.9 fL (80-100); MPV 10.1 fL (7.6-11.3); RBC Red Blood Cell Count 5.31 M/uL (3.86-4.86)
[2022-12-17 12:25] LABS: Protime INR 1.18
[2022-12-17] MEDS ORDERED: CEFAZOLIN SODIUM 1 GM/VIAL ONE (12:32)
[2022-12-17] MEDS ORDERED: VANCOMYCIN 1 GM/VIAL ONE (12:32)
[2022-12-17] MEDS ORDERED: NA CHLORIDE 0.9% 100 ML ONE ×2 (12:33→16:07)
[2022-12-17] MEDS ORDERED: NA CHLORIDE 0.9% 250 ML ONE ×2 (12:33→23:41)
[2022-12-17] MEDS ORDERED: NA CHLORIDE 0.9% 2,000 ML ONE (12:33)
[2022-12-17 12:46] LABS: Albumin 2.5 g/dL (3.4-5.0); Bilirubin Direct 0.4 mg/dL (0-0.2); Magnesium 2.6 mg/dL (1.6-2.4); Potassium 4.1 mEq/L (3.5-5.1); Protein, Total 7.4 g/dL (6.4-8.2)
[2022-12-17 12:52] LABS: Troponin High Sensitivity 259.5 pg/mL (<58.9)
--- NOTE | 2022-12-17 13:13 | RAD REPORT ---
[facility] 12[facility]27 pm CLINICAL HISTORY: COUGH COMPARISON: Chest Single View dated 12/10/2022; Chest Pa And Lat (2 Views) dated 11/29/2019; Chest Pa A nd Lat (2 Views) dated 06/26/2016; Chest Pa And Lat (2 Views) dated 01/31/2016 TECHNIQUE: Portable AP view of the chest. FINDINGS: Developing right basilar consolidative opacity. Possible small right effusion. No pneumoth orax. Stable moderate cardiomegaly. Mediastinal contours are unremarkable. Left chest wall pacer/AICD from a stable. IMPRESSION: Developing right basilar airspace opacity with possible small effusion. Findings raise c oncern for pneumonia.
[2022-12-17] MEDS ORDERED: Meropenem 1000 MG/VIAL IV ONE (16:07)
--- NOTE | 2022-12-17 16:10 | EDPHYS ---
Physician Documentation [facility] Name: Tawny León Age: 77 yrs Sex: Female : 1945 Arrival Date: 12/17/2022 Time: 11:34 Bed 20 Private MD: ED Physician Celso Landaverde HPI: 12/17 15:55 This 77 yrs old Female presents to ER via EMS with complaints of RIGHT LEG howard WOUND AND DYSPNEA. 15:55 The patient presents with decreased range of motion, pain, swelling, tenderness. The howard complaints affect the right ankle. Context: The problem was sustained at home, resulted from a chronic condition, after an old injury, a direct blow. Historical: - Allergies: 11:46 PENICILLINS; ld1 - PMHx: 11:46 Congestive heart failure; Hypercholesterolemia; Hypertensive disorder; ld1 - PSHx: 11:46 pacemaker; DASIA knee; ld1 - Immunization history:: Adult Immunizations up to date, Client reports receiving the 2nd dose of the Covid vaccine. - Social history:: Smoking status: Patient denies any tobacco usage or history of. Patient uses alcohol, occasionally. ROS: 15:59 Constitutional: Negative for fever, chills, and weight loss, Eyes: Negative for injury, howard pain, redness, and discharge, ENT: Negative for injury, pain, and discharge, Neck: Negative for injury, pain, and swelling, Cardiovascular: Negative for chest pain, palpitations, and edema, Abdomen/GI: Negative for abdominal pain, nausea, vomiting, diarrhea, and constipation, Back: Negative for injury and pain, : Negative for injury, bleeding, discharge, and swelling, Skin: Negative for injury, rash, and discoloration, Neuro: Negative for headache, weakness, numbness, tingling, and seizure, Psych: Negative for depression, anxiety, suicide ideation, homicidal ideation, and hallucinations, Allergy/Immunology: Negative for hives, rash, and allergies, Endocrine: Negative for neck swelling, polydipsia, polyuria, polyphagia, and marked weight changes, Hematologic/Lymphatic: Negative for swollen nodes, abnormal bleeding, and unusual bruising. 15:59 Respiratory: Positive for cough, shortness of breath, at rest. 15:59 Abdomen/GI: Positive for abdominal pain, of the right upper quadrant, left upper quadrant, right lower quadrant and left lower quadrant. 15:59 MS/extremity: Positive for decreased range of motion, erythema, pain, swelling, tenderness, of the right ankle. Exam: 15:59 Constitutional: This is a well developed, well nourished patient who is awake, alert, howard and in no acute distress. Head/Face: Normocephalic, atraumatic. Eyes: Pupils equal round and reactive to light, extra-ocular motions intact. Lids and lashes normal. Conjunctiva and sclera are non-icteric and not injected. Cornea within normal limits. Periorbital areas with no swelling, redness, or edema. ENT: Nares patent. No nasal discharge, no septal abnormalities noted. Tympanic membranes are normal and external auditory canals are clear. Oropharynx with no redness, swelling, or masses, exudates, or evidence of obstruction, uvula midline. Mucous membranes moist. Neck: Trachea midline, no thyromegaly or masses palpated, and no cervical lymphadenopathy. Supple, full range of motion without nuchal rigidity, or vertebral point tenderness. No Meningismus. Chest/axilla: Normal chest wall appearance and motion. Nontender with no deformity. No lesions are appreciated. Cardiovascular: Regular rate and rhythm with a normal S1 and S2. No gallops, murmurs, or rubs. Normal PMI, no JVD. No pulse deficits. Abdomen/GI: Soft, non-tender, with normal bowel sounds. No distension or tympany. No guarding or rebound. No evidence of tenderness throughout. Back: No spinal tenderness. No costovertebral tenderness. Full range of motion. Female : Normal external genitalia. Neuro: Awake and alert, GCS 15, oriented to person, place, time, and situation. Cranial nerves II-XII grossly intact. Motor strength 5/5 in all extremities. Sensory grossly intact. Cerebellar exam normal. Normal gait. Psych: Awake, alert, with orientation to person, place and time. Behavior, mood, and affect are within normal limits. 15:59 ECG was reviewed by the Attending Physician. 15:59 Respiratory: the patient does not display signs of respiratory distress, Respirations: no acute changes, Breath sounds: bronchial sounds, that are mild, are scattered, are heard in the right posterior middle lobe and right posterior lower lobe, decreased breath sounds, that are mild, are located in both bases, are heard in the left posterior lower lobe and right posterior lower lobe, rhonchi, are not appreciated, Respiratory rate: 18 15:59 Musculoskeletal/extremity: ROM: full active range of motion, full passive range of motion, Circulation is intact in all extremities. numbness, decreased sensation, Compartment Syndrome exam of affected extremity: is normal. DVT Exam: negative Homans' sign noted on exam, no appreciated bluish discoloration, pain, swelling, tenderness, erythema, increased warmth. 15:59 Skin: cellulitis, that is mild, on the right ankle. Vital Signs: 11:44 BP 89 / 68; Pulse 107; Resp 18; Temp 98.3(O); Pulse Ox 97% on R/A; Weight 72.57 kg; ld1 Height 5 ft. 2 in. ; Pain 0/10; 12:46 BP 120 / 90; Pulse 105; Resp 18; Pulse Ox 95% on R/A; ld1 13:41 BP 122 / 97; Pulse 107; Resp 18; Pulse Ox 96% on R/A; ld1 15:15 BP 129 / 101; Pulse 98; Resp 18; Pulse Ox 96% on R/A; ld1 16:39 BP 99 / 83; Pulse 111; Resp 18; Pulse Ox 96% on R/A; ld1 18:25 BP 109 / 84; Pulse 102; Resp 17; Pulse Ox 98% on R/A; ld1 19:12 BP 111 / 81; Pulse 93; Resp 17 S; Pulse Ox 97% on R/A; lg3 11:44 Body Mass Index 29.26 (72.57 kg, 157.48 cm) ld1 11:44 Pain Scale: Adult ld1 MDM: 11:34 Patient medically screened. howard 16:04 Differential diagnosis: contusion, abrasion, Anemia Bronchitis CHF exacerbation, howard Chronic Obstructive Pulmonary Disease pneumonia, pulmonary edema, Sepsis. Antibiotic administration: MEEREM AND ANCEF. Differential Diagnosis: Obstructed Airway Bronchitis Influenza Upper Respiratory Infection Pharyngitis Asthma Exacerbation Viral Syndrome Pneumonia. Immunization status: Pneumococcal vaccine: within last 5 years. Influenza vaccine: within last 5 years. Data reviewed: vital signs, nurses notes, EMS record, lab test result(s), EKG, radiologic studies, CT scan, plain films. Consideration of Admission/Observation Patient was admitted/placed on observation. Escalation of care including admission/observation considered. I considered the following discharge prescriptions or medication management in the emergency department Medications were administered in the Emergency Department. See MAR. Test considered but Not performed: MRI: NO MRCP. Care significantly affected by the following chronic conditions: Hypertension, Congestive Heart Failure, HYPERCHOLESTEROL. Counseling: I had a detailed discussion with the patient and/or guardian regarding: the historical points, exam findings, and any diagnostic results supporting the discharge/admit diagnosis, lab results, radiology results, the need for further work-up and treatment in the hospital. 20:15 ED course: Radiologist contacted me with findings of left popliteal vein DVT. sp4 12/17 11:35 Order name: Basic Metabolic Panel; Complete Time: 15:29 [facility] 12/17 11:35 Order name: CBC with Diff; Complete Time: 15:29 [facility] 12/17 11:35 Order name: LFT's; Complete Time: 15:29 [facility] 12/17 11:35 Order name: Magnesium; Complete Time: 15:29 [facility] 12/17 11:35 Order name: NT PRO-BNP; Complete Time: 15:29 [facility] 12/17 11:35 Order name: PT-INR; Complete Time: 15:29 [facility] 12/17 11:35 Order name: Troponin HS; Complete Time: 15:29 [facility] 12/17 11:49 Order name: Blood Culture Adult (2) 1 12/17 11:49 Order name: Lactate w/ 2H reflex if indic.; Complete Time: 15:29 1 12/17 19:08 Order name: Magnesium EDND 12/17 19:08 Order name: Phosphorus EDND 12/17 19:08 Order name: Urinalysis w/ reflexes EDND 12/17 19:08 Order name: Basic Metabolic Panel [facility] 12/17 19:08 Order name: Basic Metabolic Panel EDND 12/17 19:09 Order name: CBC with Automated Diff EDND 12/17 19:09 Order name: CBC with Automated Diff EDND 12/17 19:09 Order name: NT PRO-BNP EDND 12/17 19:09 Order name: NT PRO-BNP EDND 12/17 19:09 Order name: Troponin High Sensitivity EDND 12/17 19:09 Order name: Troponin High Sensitivity EDND 12/17 19:09 Order name: Troponin High Sensitivity [facility] 12/17 22:01 Order name: Lactate Sepsis 2 HR Follow-up EDND 12/17 11:35 Order name: XRAY Chest (1 view); Complete Time: 15:29 [facility] 12/17 15:47 Order name: CT Chest Abdomen Pelvis W/O Contrast; Complete Time: 20:13 [facility] 12/17 16:10 Order name: US Extremity Venous W Compression Dasia [facility] 12/17 19:50 Order name: Echo w/ Doppler [facility] 12/17 11:35 Order name: EKG; Complete Time: 11:36 [facility] 12/17 16:48 Order name: Social Service Consult [facility] 12/17 19:06 Order name: CONS [facility] Cons [facility] 12/17 19:08 Order name: CONS Physician Consult [facility] 12/17 19:08 Order name: Heart Healthy [facility] 12/17 11:35 Order name: Cardiac monitoring; Complete Time: 11:49 [facility] 12/17 11:35 Order name: EKG - Nurse/Tech; Complete Time: 13:06 [facility] 12/17 11:35 Order name: IV Saline Lock; Complete Time: 12:23 [facility] 12/17 11:35 Order name: Labs collected and sent; Complete Time: 12:23 [facility] 12/17 11:35 Order name: O2 Per Protocol; Complete Time: 11:39 [facility] 12/17 11:35 Order name: O2 Sat Monitoring; Complete Time: 11:39 [facility] EC:59 Rate is 107 beats/min. Rhythm is irregularly irregular, A fib. QRS [place] is Normal. VT howard interval is normal. QRS interval is normal. QT interval is normal. No Q waves. T waves are Normal. No ST changes noted. Clinical impression: Atrial Fibrillation. Administered Medications: 12:23 Drug: NS 0.9% IV 1000 ml Route: IV; Rate: 1 bolus; Site: right antecubital; ld1 13:05 Drug: ceFAZolin IVPB 2 grams Route: IVPB; Infused Over: 30 mins; Site: right ld1 antecubital; 13:06 Drug: NS 0.9% IV 1000 ml Route: IV; Rate: 1 bolus; Site: right antecubital; ld1 13:13 Drug: NS 0.9% IV 1000 ml Route: IV; Rate: 125 ml/hr; Site: right antecubital; ld1 13:41 Drug: vancoMYCIN IVPB 1 grams Route: IVPB; Infused Over: 2 hrs; Site: left antecubital; ld1 15:59 CANCELLED (Duplicate Order): Nitroglycerin Transdermal Ointment 2 % 0.5 inches howard Transdermal once 15:59 CANCELLED (Duplicate Order): Furosemide IVP 40 mg IVP once; give over 2 minutes howard 16:09 Drug: Meropenem IV 1 grams Route: IV; Rate: per protocol; Site: right antecubital; ld1 16:54 Drug: Famotidine IVP 20 mg Route: IVP; Site: right antecubital; ld1 16:54 Drug: Enoxaparin Sub-Q 1 mg/kg Route: Sub-Q; Site: abdomen; ld1 16:54 Drug: Coreg PO 6.25 mg Route: PO; ld1 16:54 Drug: Furosemide IVP 40 mg Route: IVP; Site: right antecubital; ld1 Disposition Summary: 12/17/22 16:09 Hospitalization Ordered Hospitalization Status: Inpatient Admission howard Provider: Milton Yost cha Location: Telemetry/MedSurg (Inpatient) howard Condition: Fair howard Problem: new howard Symptoms: have improved howard Bed/Room Type: Standard [facility] Room Assignment: 230(12/17/22 20:05) Diagnosis - Cellulitis and acute lymphangitis of other parts of limb - RIGHT LOWER EXTREMITY howard - Pneumonia due to other specified bacteria - RIGHT LOWER LOBE howard - Pleural condition, unspecified - RIGHT howadr - Elevated white blood cell count howard - Paroxysmal atrial fibrillation howard - Unspecified kidney failure - CHRONIC howard Forms: - Medication Reconciliation Form howard - SBAR form howard Signatures: Dispatcher [employer] EDND Chani Guzman RN RN mw Anderson, Corey, MD MD cha Sims, Lauren, RN RN ld1 Sal Camp MD MD sp4 Corrections: (The following items were deleted from the chart) 11:47 11:46 Allergies: PENICILLAMINE; ld1 ld1 15:59 15:57 Nitroglycerin Transdermal Ointment 2 % 0.5 inches Transdermal once ordered. [facility] 15:59 15:57 Furosemide IVP 40 mg IVP once; give over 2 minutes ordered. [facility] 20:05 16:09 howard
--- NOTE | 2022-12-17 16:10 | ER ---
Nurse's Notes [facility] Name: Tawny León Age: 77 yrs Sex: Female : 1945 Arrival Date: 12/17/2022 Time: 11:34 Bed 20 Private MD: Diagnosis: Cellulitis and acute lymphangitis of other parts of limb-RIGHT LOWER EXTREMITY;Pneumonia due to other specified bacteria-RIGHT LOWER LOBE ;Pleural condition, unspecified-RIGHT;Elevated white blood cell count;Paroxysmal atrial fibrillation;Unspecified kidney failure-CHRONIC Presentation: 12/17 11:44 Chief complaint: EMS states: toned out to patient home for wound to right lower ld1 extremity. Pt reports being bit by something and has been scratching it. Coronavirus screen: At this time, the client does not indicate any symptoms associated with coronavirus-19. Ebola Screen: No symptoms or risks identified at this time. Initial Sepsis Screen: Does the patient meet any 2 criteria? Systolic BP < 90 mmHg. HR > 90 bpm. Does the patient have a suspected source of infection? Yes: Skin breakdown/wound. Risk Assessment: Do you want to hurt yourself or someone else? Patient reports no desire to harm self or others. Onset of symptoms was December 17, 2022. 11:44 Method Of Arrival: EMS: [facility] ld1 11:44 Acuity: KENTRELL 3 ld1 Triage Assessment: 11:46 General: Appears in no apparent distress. comfortable, Behavior is calm, cooperative, ld1 appropriate for age. Pain: Denies pain. EENT: No signs and/or symptoms were reported regarding the EENT system. Neuro: Level of Consciousness is awake, alert, obeys commands, Oriented to person, place, time, situation. Cardiovascular: Capillary refill < 3 seconds Patient's skin is warm and dry. Rhythm is sinus tachycardia. Respiratory: Airway is patent Respiratory effort is even, unlabored. GI: Abdomen is round non-distended. : No signs and/or symptoms were reported regarding the genitourinary system. Derm: Wound noted right leg. Musculoskeletal: No signs and/or symptoms reported regarding the musculoskeletal system. Historical: - Allergies: 11:46 PENICILLINS; ld1 - PMHx: 11:46 Congestive heart failure; Hypercholesterolemia; Hypertensive disorder; ld1 - PSHx: 11:46 pacemaker; DASIA knee; ld1 - Immunization history:: Adult Immunizations up to date, Client reports receiving the 2nd dose of the Covid vaccine. - Social history:: Smoking status: Patient denies any tobacco usage or history of. Patient uses alcohol, occasionally. Screenin:48 [facility] ED Fall Risk Assessment (Adult) History of falling in the last 3 months, ld1 including since admission No falls in past 3 months (0 pts). Abuse screen: Denies threats or abuse. Denies injuries from another. Nutritional screening: No deficits noted. Tuberculosis screening: No symptoms or risk factors identified. Assessment: 11:48 Reassessment: See triage assessment. ld1 12:46 Reassessment: Patient appears in no apparent distress at this time. No changes from ld1 previously documented assessment. Patient and/or family updated on plan of care and expected duration. Pain level reassessed. 16:39 Reassessment: Jesus More - [phone]. ld1 18:25 Reassessment: Patient appears in no apparent distress at this time. No changes from ld1 previously documented assessment. Patient and/or family updated on plan of care and expected duration. Pain level reassessed. 19:12 General: Appears in no apparent distress. comfortable, Behavior is calm, cooperative, lg3 appropriate for age. Pain: Denies pain. Neuro: No deficits noted. Colón Agitation-Sedation Scale (RASS): 0 - Alert and Calm Level of Consciousness is awake, alert, obeys commands, Oriented to person, place, time, situation. Cardiovascular: No deficits noted. Denies chest pain, shortness of breath. Respiratory: No deficits noted. Airway is patent Respiratory effort is even, unlabored, Respiratory pattern is regular, symmetrical. GI: No deficits noted. No signs and/or symptoms were reported involving the gastrointestinal system. Abdomen is flat, non-distended. : No deficits noted. purewick in place. EENT: No deficits noted. No signs and/or symptoms were reported regarding the EENT system. Derm: Skin is intact, is thin, Skin is dry, Skin is normal, Wound noted right leg. Musculoskeletal: No deficits noted. Circulation, motion, and sensation intact. Range of motion: intact in all extremities. 20:13 General: attempted to call report. nurse not available . lg3 Vital Signs: 11:44 BP 89 / 68; Pulse 107; Resp 18; Temp 98.3(O); Pulse Ox 97% on R/A; Weight 72.57 kg; ld1 Height 5 ft. 2 in. ; Pain 0/10; 12:46 BP 120 / 90; Pulse 105; Resp 18; Pulse Ox 95% on R/A; ld1 13:41 BP 122 / 97; Pulse 107; Resp 18; Pulse Ox 96% on R/A; ld1 15:15 BP 129 / 101; Pulse 98; Resp 18; Pulse Ox 96% on R/A; ld1 16:39 BP 99 / 83; Pulse 111; Resp 18; Pulse Ox 96% on R/A; ld1 18:25 BP 109 / 84; Pulse 102; Resp 17; Pulse Ox 98% on R/A; ld1 19:12 BP 111 / 81; Pulse 93; Resp 17 S; Pulse Ox 97% on R/A; lg3 11:44 Body Mass Index 29.26 (72.57 kg, 157.48 cm) ld1 11:44 Pain Scale: Adult ld1 ED Course: 11:34 Patient arrived in ED. bd 11:34 Celso Landaverde MD is Attending Physician. howard 11:39 Bridget Chau, SEDA is Primary Nurse. ld1 11:46 Triage completed. ld1 11:46 Arm band placed on right wrist. ld1 11:48 Patient has correct armband on for positive identification. Placed in gown. Bed in low ld1 position. Call light in reach. Side rails up X2. plant operations engineer on. Pulse ox on. NIBP on. Door closed. Noise minimized. Warm blanket given. 11:48 No provider procedures requiring assistance completed. ld1 12:29 XRAY Chest (1 view) In Process Unspecified. EDMS 13:13 Blood Culture Adult (2) Sent. ld1 16:07 Milton Yost MD is Hospitalizing Provider. howard 17:05 CT Chest Abdomen Pelvis W/O Contrast In Process Unspecified. EDMS 19:11 US Extremity Venous W Compression Dasia In Process Unspecified. EDMS 21:37 Patient admitted, IV remains in place. intact, No redness/swelling at site. lg3 Administered Medications: 12:23 Drug: NS 0.9% IV 1000 ml Route: IV; Rate: 1 bolus; Site: right antecubital; ld1 13:05 Drug: ceFAZolin IVPB 2 grams Route: IVPB; Infused Over: 30 mins; Site: right ld1 antecubital; 13:06 Drug: NS 0.9% IV 1000 ml Route: IV; Rate: 1 bolus; Site: right antecubital; ld1 13:13 Drug: NS 0.9% IV 1000 ml Route: IV; Rate: 125 ml/hr; Site: right antecubital; ld1 13:41 Drug: vancoMYCIN IVPB 1 grams Route: IVPB; Infused Over: 2 hrs; Site: left antecubital; ld1 15:59 CANCELLED (Duplicate Order): Nitroglycerin Transdermal Ointment 2 % 0.5 inches howard Transdermal once 15:59 CANCELLED (Duplicate Order): Furosemide IVP 40 mg IVP once; give over 2 minutes howard 16:09 Drug: Meropenem IV 1 grams Route: IV; Rate: per protocol; Site: right antecubital; ld1 16:54 Drug: Famotidine IVP 20 mg Route: IVP; Site: right antecubital; ld1 16:54 Drug: Enoxaparin Sub-Q 1 mg/kg Route: Sub-Q; Site: abdomen; ld1 16:54 Drug: Coreg PO 6.25 mg Route: PO; ld1 16:54 Drug: Furosemide IVP 40 mg Route: IVP; Site: right antecubital; ld1 Medication: 11:48 VIS not applicable for this client. ld1 Outcome: 16:09 Decision to Hospitalize by Provider. howard 21:36 Admitted to Med/surg accompanied by tech, via wheelchair, Report called to Fifi norman 21:36 Condition: stable 21:36 Instructed on the need for admit, Demonstrated understanding of instructions. 22:21 Patient left the ED. lg3 Signatures: Dispatcher [employer] EDMS Sharita Drummond Corey, MD MD cha Gibson, Lacie, RN RN lg3 Bridget Chau RN RN ld1 Corrections: (The following items were deleted from the chart) 11:47 11:46 Allergies: PENICILLAMINE; ld1 ld1
[2022-12-17] MEDS ORDERED: ENOXAPARIN 80 MG/0.8 ML SQ ONE (16:51)
[2022-12-17] MEDS ORDERED: carvediloL 6.25 MG TAB ONE (16:51)
[2022-12-17] MEDS ORDERED: FUROSEMIDE 40 MG/4 ML VIAL ONE (16:51)
[2022-12-17] MEDS ORDERED: FAMOTIDINE 20 MG/2 ML VIAL IV ONE (16:51)
--- NOTE | 2022-12-17 17:28 | RAD REPORT ---
EXAM DESCRIPTION: CT - Chest Abd Pelvis Wo Con - 12/17/2022 5:03 pm CLINICAL HISTORY: Cough;Abdominal distention COMPARISON: No comparisons TECHNIQUE: Thin axial noncontrast CT images of the chest, abdomen, and pelvis were obtained. Multipl valentina reformats were generated and reviewed. All CT scans are performed using dose optimization technique as appropriate and may include automated exposure control or mA/KV adjustment according to patient size. FINDINGS: Patchy consolidative right basal airspace opacities along the anterior basal right lower l obe. Small similar focus along the anterior basal left lower lobe. No pneumothorax.No pleural or huang cardial effusion. [id number] cardiomegaly. Left chest wall pacer/ AICD in place.No intrathoracic adenopathy. The liver, spleen, pancreas, adrenal glands and kidneys are within normal limits. Status post cholec ystectomy. Punctate foci of calcification throughout the liver as well as a single focus in the splee n, suggest small granulomas. No bowel obstruction, free air, free fluid or abscess. Normal appendix. No pathologic lymphadenopath y in the abdomen or pelvis. Skin shaina along the supraumbilical anterior abdominal wall near the midline, with underlying subcu taneous soft tissue gas, please correlate with recent intervention. Fatty mass infiltrating the left tensor fascia hayden, could relate to denervation, or a large lipoma. No worrisome osseous finding. Multilevel thoracolumbar degenerative changes with mild dextroconvex lumbar scoliosis. IMPRESSION: Patchy bibasilar airspace opacities more so in the right lower lobe than the left, wiley rning for pneumonia, possibly due to aspiration. [id number] cardiomegaly. Questionable postsurgical changes along the midline anterior abdominal wall. Please correlate with hi story of recent surgical intervention. Other incidental findings as above.
[2022-12-17] MEDS ORDERED: VANCOMYCIN 1 GM in NA CHLORIDE 0.9% 250 ML IVPB SCH ×2 (19:01→20:00)
[2022-12-17] MEDS ORDERED: ONDANSETRON 4 MG/2 ML VIAL IV PRN (19:05)
--- NOTE | 2022-12-17 19:07 | P.HP ---
Certification for Inpatient Patient admitted to: Inpatient With expected LOS: >2 Midnights Patient will require the following post-hospital care: None Practitioner: I am a practitioner with admitting privileges, knowledge of patient current condition, hospital course, and medical plan of care. Services: Services provided to patient in accordance with Admission requirements found in Title 42 Section 412.3 of the Code of Federal Regulations Patient History Date of Service: 12/17/22 Reason for admission: SOB, Cough and BLE wounds\\swelling\\pain History of Present Illness: Patient is a 77-year-old female with a past medical history significant for CHF, HLD, hypertension, insomnia who presents with complaint of cough, shortness of breath and bilateral lower extremity wounds. Patient is alert and oriented x2. Patient is a poor historian and unable to provide accurate history. Patient noted with bilateral lower extremity swelling\\redness and warmth. Patient also reports pain in bilateral lower extremities and dysuria. Patient unable to quantify pain or describe severity. Patient denies any other signs or symptoms. Symptoms are aggravated or relieved by nothing. Patient was brought to the hospital for medical evaluation. Of note, patient recently had a laparoscopic cholecystectomy last week. Allergies sulfamethoxazole [From Bactrim] Allergy (Verified 12/17/22 22:26) Itching trimethoprim [From Bactrim] Allergy (Verified 12/17/22 22:26) Itching Penicillins Adverse Reaction (Verified 12/17/22 22:26) swelling Home Medications: Cholecalciferol (Vitamin D3) [Vitamin D 1000 Iu Tab*] 1,000 unit PO TID 11/17/19 Furosemide [Lasix*] 80 mg PO DAILY 11/17/19 Ascorbic Acid [Vitamin C*] 500 mg PO DAILY 12/11/22 Atorvastatin Calcium [Lipitor*] 20 mg PO DAILY 12/11/22 Cider Vinegar [Apple Cider Vinegar] 500 mg PO DAILY 12/11/22 Glucos Sul 2Kcl/MSM/Chond/C/Mn [Glucosamine Chondroitin Cap] 1 cap PO DAILY 12/11/22 Melatonin [Melatonin*] 3 mg PO BEDTIME 12/11/22 carvediloL [Carvedilol] 3.125 mg PO DAILY 12/11/22 - Past Medical/Surgical History Diabetic: No -: hypertension -: CHF -: HLD -: HTN -: joint replacement -: R Knee sx - Social History Smoking Status: Never smoker Alcohol use: Yes CD- Drugs: No Caffeine use: Yes Place of Residence: Home Review of Systems General: Unremarkable Eyes: Unremarkable ENT: Unremarkable Respiratory: Cough, Shortness of Breath Cardiovascular: Unremarkable Gastrointestinal: Unremarkable Genitourinary: Dysuria Musculoskeletal: Leg Pain Integumentary: Other (BLE wounds\\redness) Neurological: Unremarkable Lymphatics: Unremarkable Physical Examination - Physical Exam General: Alert, In no apparent distress, Oriented x3, Cooperative HEENT: Atraumatic, PERRLA, Mucous membr. moist/pink, EOMI, Sclerae nonicteric Neck: Supple, 2+ carotid pulse no bruit, No LAD, Without JVD or thyroid abnormality Respiratory: Diminished, Expiratory wheezes Cardiovascular: Regular rate/rhythm, Normal S1 S2, Edema Capillary refill: <2 Seconds Gastrointestinal: Normal bowel sounds, Soft and benign, No tenderness Musculoskeletal: Swelling, Tenderness Integumentary: No rashes, Skin breakdown, Tenderness/swelling, Erythema, Warmth Neurological: Normal speech, Normal tone, Normal affect Lymphatics: No axilla or inguinal lymphadenopathy - Studies Laboratory Data (last 24 hrs) 12/17/22 12:00: PT 13.0 H, INR 1.18 12/17/22 12:00: WBC 12.60 H, Hgb 14.9, Hct 46.2 H, Plt Count 224 12/17/22 12:00: Sodium 139, Potassium 4.1, BUN 74 H, Creatinine 1.38 H, Glucose 224 H, Magnesium 2.6 H, Total Bilirubin 1.0, AST 24, ALT 24, Alkaline Phosphatase 91 Assessment and Plan - Plan -- Bilateral lower extremities cellulitis\\wound wound. Patient placed on antibiotics. Blood cultures pending. Wound consult initiated. Will await further recommendations. --Pneumonia. Likely aspiration. As noted on CT imaging. Continue antibiotics, neb treatment with Atrovent\\albuterol and O2 therapy. --Acute on chronic systolic CHF exacerbation. Continue diuresis with Lasix. Daily weight and strict I/O. Cardiology consulted. We will await further recommendation. --Bilateral lower extremity pain. Doppler ultrasound indicates "noncompressible left popliteal vein with acute appearing thrombus". Patient placed on weight- based Lovenox subQ. --Elevated troponin. We will trend troponins levels. Currently trending down. Continue Lovenox subQ. Telemetry. Further management per helicopter repairer. --MAY on CKD 3A. Slight depreciation in kidney function noted compared to levels last week--likely secondary to cardiorenal syndrome. We will continue to monitor renal functions. --UTI. Patient reports dysuria. Continue empirical antibiotics. Urine cultures pending. --Hypertension. Stable. Continue home medications --Hyperlipidemia. Continue statin. --Insomnia. Continue melatonin. -- DVT prophylaxis with Lovenox subQ. -- Discharge planning. Social service consult initiated in the ER As patient cannot take care of herself at home. Discharge Plan: Home Plan to discharge in: Greater than 2 days - Advance Directives Does patient have a Living Will: Yes Does patient have a Durable POA for Healthcare: No - Code Status/Comfort Care Code Status Assessed: Yes Physician Review: Patient Assessed, Agree with Above Assessment and Plan Critical Care: No
[2022-12-17] MEDS ORDERED: ALBUTEROL 2.5 MG/3 ML NEB SOL ONE (19:34)
[2022-12-17] MEDS: IPRATROPIUM BROM 0.5MG/2.5ML NEB SCH (19:35)
[2022-12-17] MEDS ORDERED: IPRATROPIUM BROM 0.5MG/2.5ML ONE (19:35)
[2022-12-17] MEDS: ALBUTEROL 2.5 MG/3 ML NEB SOL NEB SCH ×2 (19:35→20:00)
--- NOTE | 2022-12-17 20:19 | RAD REPORT ---
EXAM DESCRIPTION: US - Extrem Venous W Compress Vic - 12/17/2022 7:09 pm CLINICAL HISTORY: Pain, swelling COMPARISON: None. TECHNIQUE: Real-time sonographic evaluation of the bilateral lower extremity deep venous systems was performed. FINDINGS: Noncompressible left popliteal vein with acute appearing thrombus. Normal compressibility, flow augmentation, phasic flow and spontaneous flow is identified in the tracy quincy of both the left and right lower extremity deep venous systems. No intraluminal filling defects seen. Mild left lower leg subcutaneous edema. IMPRESSION: Noncompressible left popliteal vein with acute appearing thrombus. The findings were communicated to Dr Camp on 12/17/2022 at 20:14 hours.
[2022-12-17] MEDS ORDERED: VANCOMYCIN 750 MG in NA CHLORIDE 0.9% 150 ML IVPB ONE (21:00)
[2022-12-17 22:02] LABS: Phosphorus 3.1 mg/dL (2.5-4.9)
[2022-12-17 22:03] LABS: Magnesium 2.1 mg/dL (1.6-2.4); Troponin High Sensitivity 236.2 pg/mL (<58.9)
[2022-12-17] MEDS ORDERED: VANCOMYCIN 500 MG/VIAL ONE ×2 (23:38→23:46)
[2022-12-18] MEDS: CEFEPIME 1 GM in NA CHLORIDE 0.9% 100 ML IV SCH ×3 (01:01→20:55)
[2022-12-18] MEDS ORDERED: NA CHLORIDE 0.9% 50 ML ONE (01:31)
[2022-12-18] MEDS: ALBUTEROL 2.5 MG/3 ML NEB SOL NEB SCH ×4 (02:00→14:30)
[2022-12-18 02:08] LABS: Specific Gravity 1.014 (1.005-1.030); Urine Bilirubin NEGATIVE (Negative); Urine Blood Negative (Negative); Urine Clarity Clear (Clear); Urine Color Light-Yellow (Yellow); Urine Glucose NEGATIVE (Negative); Urine Protein NEGATIVE (Negative); Urine Urobilinogen Normal (Normal)
[2022-12-18] MEDS: IPRATROPIUM BROM 0.5MG/2.5ML NEB SCH ×2 (03:10→07:38)
[2022-12-18 03:22] VITALS: BMI 24.2
[2022-12-18 04:00] LABS: Hematocrit 40.7 % (36.0-45.0); Lymphocytes % 9.6 % (15.3-44.8); MCV 86.5 fL (80-100); MPV 10.2 fL (7.6-11.3)
[2022-12-18 04:26] LABS: Potassium 3.7 mEq/L (3.5-5.1)
--- NOTE | 2022-12-18 07:23 | P.PN ---
Date of Service: 12/18/22 Subjective: Feeling about the same today SOB persists - no improvement no new / worsening symptoms ROS: 10 point ROS as noted above, otherwise negative Physical Exam: GEN: Alert, oriented, NAD HEENT: Normal conjunctiva, sclera anicteric CV: Regular rate and rhythm, no edema Pulm: mild labored respirations on room air, diminished at bases b/l, expiratory wheezes ABD: Soft, nontender, nondistended MSK: Swelling, Tenderness (lower extremities) Integumentary: Skin breakdown, Tenderness/swelling, Erythema, Warmth Neuro: Normal speech, normal affect vitals reviewed Problem List: Bilateral lower extremities cellulitis\\wound wound Pneumonia Acute on chronic systolic CHF exacerbation Bilateral lower extremity pain acute DVT Elevated troponin MAY on CKD 3A UTI Hypertension Hyperlipidemia Insomnia Bilateral lower extremities cellulitis\\wound wound Continue antibiotics Blood cultures pending Wound consult initiated Dr. Last consulted Pneumonia concerning for aspiration. As noted on CT imaging Continue antibiotics, neb treatment with Atrovent\\albuterol and O2 therapy Acute on chronic systolic CHF exacerbation Continue diuresis with Lasix Daily weight and strict I/O Cardiology consulted Bilateral lower extremity pain acute DVT Doppler ultrasound indicates "noncompressible left popliteal vein with acute appearing thrombus" continue weight-based Lovenox subQ Elevated troponin Trend troponins - Currently down-trending Monitor on Telemetry MAY on CKD 3A Slight depreciation in kidney function noted compared to levels last week--likely secondary to cardiorenal syndrome We will continue to monitor renal function UTI Patient reports dysuria Continue empiric antibiotics Urine cultures pending Hypertension Hyperlipidemia Insomnia Continue home medications Continue statin Continue melatonin VTE: Lovenox subQ Code: Full Dispo: Pending - donor services specialist consulted in ER as patient cannot take care of herself at home
[2022-12-18] MEDS: FUROSEMIDE 40 MG/4 ML VIAL IV SCH ×2 (08:16→20:54)
--- NOTE | 2022-12-18 08:16 | EKG ---
Test Date: 2022-12-17 Test Time: 12:36:40 Factory Representative: Tabby BEASLEY MEASUREMENT RESULTS: Intervals: Rate: 107 [place]: QRSD: 110 QT: 360 QTc: 480 [place]: P: OK: QRS: 136 T: -33 INTERPRETIVE STATEMENTS: Atrial fibrillation with rapid ventricular response with premature ventricular or aberrantly conducted complexes Right axis deviation Incomplete left bundle branch block ST & T wave abnormality, consider inferolateral ischemia Abnormal ECG Compared to ECG 12/10/2022 16:14:19 Right-axis deviation now present ST (T wave) deviation now present Possible ischemia now present Sinus rhythm no longer present Left-axis deviation no longer present T-wave abnormality no longer present Electronically Signed On 12-18-22 08:11:54 CDT by Richmond Dove
[2022-12-18] MEDS ORDERED: IPRATROPIUM BROM 0.5MG/2.5ML NEB PRN ×2 (08:25→15:00)
[2022-12-18] MEDS: APIXABAN 5 MG TABLET PO SCH ×2 (08:49→20:55)
[2022-12-18] MEDS ORDERED: POTASSIUM 25 MEQ EFFERV TAB PO ONE (09:00)
[2022-12-18] MEDS ORDERED: ENOXAPARIN 40 MG/0.4 ML SQ SCH (09:00)
[2022-12-18] MEDS ORDERED: PNEUMOCOCCAL VACCINE 0.5 ML IMVAC ONE (09:00)
--- NOTE | 2022-12-18 12:47 | P.CNS ---
Date of Consult: 12/18/22 Reason for Consult: DVT Chief Complaint: SOB, Cough and BLE wounds\swelling\pain History of Present Illness: Is 77 years of age with a history of CHF hypertension presented with cough shortness of breath bilateral lower extremity wound found to have a DVT remain short of breath all her life is never smoked still complaining of a chronic cough Allergies sulfamethoxazole [From Bactrim] Allergy (Verified 12/17/22 22:26) Itching trimethoprim [From Bactrim] Allergy (Verified 12/17/22 22:26) Itching Penicillins Adverse Reaction (Verified 12/17/22 22:26) swelling Home Medications: Cholecalciferol (Vitamin D3) [Vitamin D 1000 Iu Tab*] 1,000 unit PO TID 11/17/19 Furosemide [Lasix*] 80 mg PO DAILY 11/17/19 Ascorbic Acid [Vitamin C*] 500 mg PO DAILY 12/11/22 Atorvastatin Calcium [Lipitor*] 20 mg PO DAILY 12/11/22 Cider Vinegar [Apple Cider Vinegar] 500 mg PO DAILY 12/11/22 Glucos Sul 2Kcl/MSM/Chond/C/Mn [Glucosamine Chondroitin Cap] 1 cap PO DAILY 12/11/22 Melatonin [Melatonin*] 3 mg PO BEDTIME 12/11/22 carvediloL [Carvedilol] 3.125 mg PO DAILY 12/11/22 - Past Medical/Surgical History Diabetic: No -: hypertension -: CHF severe global hypokinesis -: HLD -: HTN -: joint replacement -: R Knee sx - Social History Alcohol use: Yes CD- Drugs: No Caffeine use: Yes Place of Residence: Home Review of Systems 10-point ROS is otherwise unremarkable General: Weakness Respiratory: Cough, Shortness of Breath Physical Examination Temp Pulse Resp BP Pulse Ox 97.2 F 92 H 20 112/59 L 92 12/18/22 08:00 12/18/22 08:16 12/18/22 08:00 12/18/22 08:16 12/18/22 08:00 General: Alert, In no apparent distress, Oriented x3 Respiratory: Clear to auscultation bilaterally Cardiovascular: No edema, Regular rate/rhythm Gastrointestinal: Normal bowel sounds, Soft and benign Musculoskeletal: Other (Patient has bandages over her lower leg) Laboratory Data (last 24 hrs) 12/17/22 12:00: WBC 12.60 H, Hgb 14.9, Hct 46.2 H, Plt Count 224 12/17/22 12:00: Sodium 139, Potassium 4.1, BUN 74 H, Creatinine 1.38 H, Glucose 224 H, Magnesium 2.6 H, Total Bilirubin 1.0, AST 24, ALT 24, Alkaline Phosphatase 91 - Problems (1) DVT (deep venous thrombosis) Current Visit: Yes Status: Acute Plan: Patient is 77 years of age admitted with cough shortness of breath has acute left-sided popliteal DVT White count is now normal also complains of chronic dyspnea and shortness of breath and cough he is never smoked vital signs oxygenation satisfactory CT scan shows possible right lower lobe pneumonia blood cultures are negative recommend changing to p.o. antibiotics levofloxacin should be adequate does not appear to be septic anticoagulate Qualifiers: Affected thrombotic vein of extremity: popliteal Laterality: left (2) Pneumonia Current Visit: Yes Status: Acute Plan: Patient has a right lower lobe pneumonia does not appear to be septic changed to p.o. antibiotics patient also has severe congestive heart failure global hypokinesis Qualifiers: Laterality: right Lung location: lower lobe of lung
[2022-12-18] MEDS ORDERED: ALBUTEROL 2.5 MG/3 ML NEB SOL NEB PRN (18:00)
--- NOTE | 2022-12-18 18:39 | CON ---
Date of Consultation: 12/18/2022 Reason For Consultation: Congestive heart failure. History Of Present Illness: Ms. León is 77, history of EF 20% recently. She has a history of pace maker, hypertension, dyslipidemia. She has minimal coronary artery disease by heart catheterization about a year ago. Comes in with congestive heart failure exacerbation with final venous Dopplers to have an acute thrombus in the left popliteal, chest x-ray shows pneumonia at the left base versus flu id. Troponin was mildly elevated about 200. She is feeling better after antibiotics and diuresis. She is on IV Lasix. She is on antibiotic. She is on Lovenox for her new thrombus. Past Medical History: As stated above. Allergies: NONE. Review of Systems: Negative. Social History: Negative. Family History: Noncontributory. Medications: At home include Coreg, lisinopril, Lasix. Physical Examination: General: Very pleasant, no acute distress, sinus rhythm. HEENT: Negative. Neck: Supple with no bruit. Chest: Revealed some rales at both bases, more on the left than the right. Cardiac: Revealed a paced rhythm. No murmurs, gallops, or rubs. Abdomen: Benign. Extremities: Revealed trace edema, more on the left than the right. Diagnostic Data: As stated earlier. Impression And Plan: 1.Acute on chronic exacerbation of systolic congestive heart failure with known ejection fraction of 20%. 2.Minimal coronary artery disease. 3.Dyslipidemia. 4.Hypertension, well controlled. 5.History of pacemaker placement, well controlled. 6.New onset left popliteal acute thrombus vein. She is on Lovenox. She will have to be on long-ter m anticoagulation when she goes home. She has mildly elevated troponin secondary to congestive heart failure and demand ischemia. She is on IV Lasix, antibiotics, Lovenox. I agree with her present re erica. I will continue to follow. Dr. Yost and I discussed her case. GLENN/KASIA Voice ID: [id number] Report ID: [id number]
[2022-12-18] MEDS: MELATONIN 3 MG TABLET PO SCH (20:56)
[2022-12-18] MEDS: ATORVASTATIN 20 MG TAB PO SCH (20:56)
[2022-12-18] MEDS ORDERED: VANCOMYCIN 1 GM in NA CHLORIDE 0.9% 250 ML IVPB SCH (21:00)
[2022-12-19] MEDS: CEFEPIME 1 GM in NA CHLORIDE 0.9% 100 ML IV SCH ×2 (00:21→09:10)
[2022-12-19 03:28] LABS: Absolute Lymphocytes (CBC) 1.1 K/uL (0.7-4.9); Hematocrit 37.9 % (36.0-45.0); Lymphocytes % 11.5 % (15.3-44.8); MCV 86.3 fL (80-100); MPV 10.5 fL (7.6-11.3); RBC Red Blood Cell Count 4.39 M/uL (3.86-4.86)
[2022-12-19 03:48] LABS: Magnesium 2.1 mg/dL (1.6-2.4); Potassium 3.6 mEq/L (3.5-5.1)
--- NOTE | 2022-12-19 07:22 | P.PN ---
Date of Service: 12/19/22 Subjective: Feeling better today claims breathing feels easier today confused this morning; pulled out IV this morning per nurse legs are more red than yesterday; possibly from sitting in chair for extended amount of time no worsening pain +cough ROS: 10 point ROS as noted above, otherwise negative Physical Exam: GEN: Alert, oriented, NAD; some intermittent confusion HEENT: Normal conjunctiva, sclera anicteric CV: Regular rate and rhythm, 1+ b/l lower extremity edema Pulm: mild labored respirations on room air, diminished at bases b/l worse on R ABD: Soft, nontender, nondistended MSK: Swelling, mild tenderness (lower extremities) Integumentary: Skin breakdown, Tenderness/swelling, Erythema, Warmth Neuro: Normal speech, normal affect vitals reviewed Problem List: Bilateral lower extremities cellulitis\\ wound Pneumonia Acute on chronic systolic CHF exacerbation Bilateral lower extremity pain acute DVT Elevated troponin MAY on CKD 3A UTI Hypertension Hyperlipidemia Insomnia Bilateral lower extremities cellulitis\\ wound empiric vanc/cefepime; unclear if infected vs edematous; erythema waxes/wanes de-escalated to levaquin for pneumonia Blood cultures negative Wound care consulted; Dr. Last consulted PT eval Pneumonia concerning for aspiration. As noted on CT imaging Continue antibiotics, neb treatment with Atrovent\\albuterol and O2 therapy Pulmonology consulted Acute on chronic systolic CHF exacerbation Cardiology consulted Continue diuresis with Lasix Daily weight and strict I/O Bilateral lower extremity pain acute DVT Doppler ultrasound indicates "noncompressible left popliteal vein with acute appearing thrombus" lovenox switched to eliquis will need eliquis on dc Elevated troponin Trend troponins - Currently down-trending Monitor on Telemetry felt to be demand ischemia MAY on CKD 3A Slight depreciation in kidney function noted compared to levels last week--likely secondary to cardiorenal syndrome We will continue to monitor renal function UTI Patient reports dysuria Continue empiric antibiotics Urine cultures pending Hypertension Hyperlipidemia Insomnia Continue home medications Continue statin Continue melatonin VTE: eliquis Code: Full Dispo: Pending - account services representative consulted in ER as patient cannot take care of herself at home she is not wanting to go to SNF will try to reach out to family
[2022-12-19] MEDS ORDERED: POTASSIUM 25 MEQ EFFERV TAB PO ONE (09:00)
[2022-12-19] MEDS ORDERED: VANCOMYCIN 1.25 GM in NA CHLORIDE 0.9% 250 ML IVPB SCH (09:00)
[2022-12-19] MEDS ORDERED: ENOXAPARIN 80 MG/0.8 ML SQ SCH (09:00)
[2022-12-19] MEDS: FUROSEMIDE 40 MG/4 ML VIAL IV SCH (09:10)
[2022-12-19] MEDS: carvediloL 3.125 MG TAB PO SCH (09:11)
[2022-12-19] MEDS: APIXABAN 5 MG TABLET PO SCH ×2 (09:11→20:10)
--- NOTE | 2022-12-19 11:46 | RAD REPORT ---
EXAM DESCRIPTION: Zaid Single View12/19/2022 11:09 am CLINICAL HISTORY: Chest pain COMPARISON: December 17, 2022 FINDINGS: Mild to moderate right basilar alveolar opacity without significant change. Left lung appears clear of acute infiltrate. Heart is moderately enlarged. Pacemaker leads in place IMPRESSION: Mild to moderate right basilar lung opacity without significant change presumably pneumo mike
[2022-12-19] MEDS: ACETAMINOPHEN 325 MG TABLET PO PRN (11:52)
--- NOTE | 2022-12-19 12:42 | PN ---
Date of Progress Note: 12/19/2022 Ms. León had came in with venous Doppler that was positive for acute thrombus in the left popliteal . She is on Lovenox. She also had came in with congestive heart failure. 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 A lso has a history of pacemaker, hypertension, dyslipidemia. She is on blood thinners right now. She is on IV Lasix. She is on antibiotics. She is improving. I think she can go home whenever it is o nina with Dr. Yost. She should go home eventually on either Xarelto or Eliquis. I will leave that u p to Dr. Yost. We will see her in the office as an outpatient. YOSHI Voice ID: [id number] Report ID: [id number]
[2022-12-19] MEDS: FUROSEMIDE 40 MG TABLET PO SCH (16:24)
[2022-12-19] MEDS: ATORVASTATIN 20 MG TAB PO SCH (20:11)
[2022-12-19] MEDS: MELATONIN 3 MG TABLET PO SCH (20:11)
[2022-12-20 06:22] LABS: Hematocrit 42.4 % (36.0-45.0); MPV 10.4 fL (7.6-11.3); RBC Red Blood Cell Count 4.93 M/uL (3.86-4.86)
[2022-12-20 07:14] LABS: Potassium 3.6 mEq/L (3.5-5.1)
--- NOTE | 2022-12-20 07:23 | P.PN ---
Date of Service: 12/20/22 Subjective: Breathing felt easier this morning; improving with activity as well Swelling in the legs improved agitated yesterday; Pulled out IV for 2nd time yesterday ROS: 10 point ROS as noted above, otherwise negative Physical Exam: GEN: Alert, oriented, NAD; some intermittent confusion and agitation HEENT: Normal conjunctiva, sclera anicteric CV: Regular rate and rhythm, 1+ b/l lower extremity edema Pulm: mild labored respirations on room air, diminished at bases b/l worse on R ABD: Soft, nontender, nondistended Integumentary: Skin breakdown - small superficial ulcerations on b/l legs, Tenderness/swelling, mild erythema Neuro: Normal speech, normal affect vitals reviewed Problem List: Bilateral lower extremities cellulitis\\ wound Pneumonia Acute on chronic systolic CHF exacerbation Bilateral lower extremity pain acute DVT Elevated troponin MAY on CKD 3A Hypertension Hyperlipidemia Insomnia Bilateral lower extremities cellulitis\\ wound empiric vanc/cefepime; unclear if infected vs edematous; erythema waxes/wanes de-escalated to levaquin for pneumoniao on 12/19 Blood cultures negative Wound care consulted; Dr. Last consulted PT eval Pneumonia concerning for aspiration. As noted on CT imaging Continue antibiotics, neb treatment with Atrovent\\albuterol and O2 therapy speech therapy consulted Pulmonology consulted Acute on chronic systolic CHF exacerbation Cardiology consulted Continue diuresis with Lasix Daily weight and strict I/O CXR 12/19 - Mild to moderate right basilar lung opacity without significant change presumably pneumonia Bilateral lower extremity pain acute DVT Doppler ultrasound indicates "noncompressible left popliteal vein with acute appearing thrombus" lovenox switched to eliquis will need eliquis on dc Elevated troponin Trend troponins - Currently down-trending Monitor on Telemetry felt to be demand ischemia MAY on CKD 3A Slight depreciation in kidney function noted compared to levels last week--likely secondary to cardiorenal syndrome We will continue to monitor renal function UTI, ruled out Patient reports dysuria, UA clear Hypertension Hyperlipidemia Insomnia Continue home medications Continue statin Continue melatonin VTE: eliquis Code: Full Dispo: SNF? She seems open to the idea of SNF now that she is aware insurance would cover it; told me she was most concerned with inability to afford the cost will try to reach out to family
[2022-12-20] MEDS: carvediloL 3.125 MG TAB PO SCH (08:12)
[2022-12-20] MEDS: levoFLOXacin 750 MG TAB PO SCH (08:13)
[2022-12-20] MEDS: FUROSEMIDE 40 MG TABLET PO SCH ×2 (08:13→16:06)
[2022-12-20] MEDS: APIXABAN 5 MG TABLET PO SCH ×2 (08:13→21:45)
[2022-12-20] MEDS: MEDIHONEY 44 ML TOPICAL TUBE TOP SCH (08:14)
[2022-12-20] MEDS ORDERED: POTASSIUM CL SA 10 MEQ TAB PO ONE (09:46)
[2022-12-20] MEDS ORDERED: DIPHENHYDRAMINE 25 MG TAB/CAP PO PRN (20:08)
[2022-12-20] MEDS: MELATONIN 3 MG TABLET PO SCH (21:00)
[2022-12-20] MEDS: ATORVASTATIN 20 MG TAB PO SCH (21:45)
[2022-12-21 06:26] LABS: Absolute Lymphocytes (CBC) 0.9 K/uL (0.7-4.9); Hematocrit 41.4 % (36.0-45.0); MCV 85.8 fL (80-100); RBC Red Blood Cell Count 4.83 M/uL (3.86-4.86)
[2022-12-21 06:46] LABS: Albumin 2.3 g/dL (3.4-5.0); Potassium 3.8 mEq/L (3.5-5.1); Protein, Total 6.2 g/dL (6.4-8.2)
--- NOTE | 2022-12-21 07:32 | P.PN ---
Date of Service: 12/21/22 Subjective: Feeling good today Swelling has improved removed the dressing of legs yesterday no new / worsening problems ROS: 10 point ROS as noted above, otherwise negative Physical Exam: GEN: Alert, oriented, NAD HEENT: Normal conjunctiva, sclera anicteric CV: Regular rate and rhythm, 1+ b/l lower extremity edema Pulm: mild labored respirations on room air, diminished at bases b/l worse on R ABD: Soft, nontender, nondistended Integumentary: Skin breakdown - small superficial ulcerations on b/l legs, Tenderness/swelling, mild erythema, bandages in place Neuro: Normal speech, normal affect vitals reviewed Problem List: Bilateral lower extremities cellulitis\\ wound Pneumonia Acute on chronic systolic CHF exacerbation Bilateral lower extremity pain acute DVT Elevated troponin MAY on CKD 3A Hypertension Hyperlipidemia Insomnia Bilateral lower extremities cellulitis\\ wound empiric vanc/cefepime; unclear if infected vs edematous; erythema waxes/wanes de-escalated to levaquin for pneumonia on 12/19 Blood cultures negative Wound care consulted; Dr. Last consulted PT eval Pneumonia concerning for aspiration. As noted on CT imaging Continue antibiotics, neb treatment with Atrovent\\albuterol and O2 therapy speech therapy consulted Pulmonology consulted Acute on chronic systolic CHF exacerbation Cardiology consulted Continue diuresis with Lasix Daily weight and strict I/O CXR 12/19 - Mild to moderate right basilar lung opacity without significant change presumably pneumonia Bilateral lower extremity pain acute DVT Doppler ultrasound indicates "noncompressible left popliteal vein with acute appearing thrombus" lovenox switched to eliquis will need eliquis on dc Elevated troponin Trend troponins - Currently down-trending Monitor on Telemetry felt to be demand ischemia MAY on CKD 3A Slight depreciation in kidney function noted compared to levels last week--likely secondary to cardiorenal syndrome We will continue to monitor renal function UTI, ruled out Patient reports dysuria, UA clear Hypertension Hyperlipidemia Insomnia Continue home medications Continue statin Continue melatonin VTE: eliquis Code: Full Dispo: SNF, agreeable
[2022-12-21] MEDS ORDERED: POTASSIUM CL SA 10 MEQ TAB PO ONE (09:00)
[2022-12-21] MEDS: APIXABAN 5 MG TABLET PO SCH ×2 (10:18→21:23)
[2022-12-21] MEDS: carvediloL 3.125 MG TAB PO SCH (10:19)
[2022-12-21] MEDS: FUROSEMIDE 40 MG TABLET PO SCH ×2 (10:24→16:51)
[2022-12-21] MEDS: levoFLOXacin 750 MG TAB PO SCH (10:25)
[2022-12-21] MEDS: MEDIHONEY 44 ML TOPICAL TUBE TOP SCH (14:03)
[2022-12-21] MEDS: MELATONIN 3 MG TABLET PO SCH (21:00)
[2022-12-21] MEDS: ATORVASTATIN 20 MG TAB PO SCH (21:23)
[2022-12-22 03:45] LABS: MCV 85.6 fL (80-100); MPV 10.4 fL (7.6-11.3); RBC Red Blood Cell Count 4.56 M/uL (3.86-4.86)
[2022-12-22 04:04] LABS: Potassium 3.4 mEq/L (3.5-5.1)
--- NOTE | 2022-12-22 07:05 | P.PN ---
Date of Service: 12/22/22 Subjective: Feeling "ok" today, some mild confusion refusing telemetry unsure when last BM was poor intake ROS: 10 point ROS as noted above, otherwise negative Physical Exam: GEN: Alert, oriented, NAD HEENT: Normal conjunctiva, sclera anicteric CV: Regular rate and rhythm, 1+ b/l lower extremity edema Pulm: mild labored respirations on room air, diminished at bases b/l worse on R ABD: Soft, nontender, nondistended Integumentary: Skin breakdown - small superficial ulcerations on b/l legs, no drainage Neuro: Normal speech, normal affect vitals reviewed Problem List: Bilateral lower extremities cellulitis\\wound Pneumonia Acute on chronic systolic CHF exacerbation Bilateral lower extremity pain acute DVT Elevated troponin MAY on CKD 3A Hypertension Hyperlipidemia Insomnia Bilateral lower extremities cellulitis\\ wound empiric vanc/cefepime on admission; unclear if infected vs edematous; erythema waxes/wanes de-escalated to levaquin for pneumonia on 12/19 Blood cultures negative Wound care consulted; Dr. Last consulted PT eval Pneumonia concerning for aspiration. As noted on CT imaging CXR 12/19 - Mild to moderate right basilar lung opacity without significant change presumably pneumonia CXR 12/22 - Stable right basilar airspace opacity Continue antibiotics, neb treatment with Atrovent\\albuterol and O2 therapy speech therapy consulted Pulmonology consulted Acute on chronic systolic CHF exacerbation Cardiology consulted Continue diuresis with Lasix Daily weight and strict I/O Bilateral lower extremity pain acute DVT Doppler ultrasound indicates "noncompressible left popliteal vein with acute appearing thrombus" lovenox switched to eliquis will need eliquis on dc Elevated troponin Trend troponins - Currently down-trending Monitor on Telemetry felt to be demand ischemia MAY on CKD 3A Slight depreciation in kidney function noted compared to levels last week--likely secondary to cardiorenal syndrome We will continue to monitor renal function UTI, ruled out Patient reports dysuria, UA clear Hypertension Hyperlipidemia Insomnia Continue home medications Continue statin Continue melatonin VTE: eliquis Code: Full Dispo: SNF, agreeable
[2022-12-22] MEDS: carvediloL 3.125 MG TAB PO SCH (08:37)
[2022-12-22] MEDS: levoFLOXacin 750 MG TAB PO SCH (08:38)
[2022-12-22] MEDS: FUROSEMIDE 40 MG TABLET PO SCH ×2 (08:38→17:33)
[2022-12-22] MEDS: APIXABAN 5 MG TABLET PO SCH ×2 (08:38→21:51)
[2022-12-22] MEDS: MEDIHONEY 44 ML TOPICAL TUBE TOP SCH (08:39)
[2022-12-22] MEDS ORDERED: POTASSIUM CL SA 10 MEQ TAB PO ONE (09:00)
--- NOTE | 2022-12-22 09:31 | RAD REPORT ---
EXAM DESCRIPTION: RADChest Single View12/22/2022 9:01 am CLINICAL HISTORY: f/u pneumonia, chf COMPARISON: Chest Single View dated 12/19/2022; Chest Single View dated 12/17/2022; Chest Single View dated 12/10/2022; Chest Pa And Lat (2 Views) dated 11/29/2019 TECHNIQUE: Portable AP view of the chest. FINDINGS: Patchy right basilar airspace opacification and possible associated small effusion, stable . No pneumothorax or left-sided effusion. Stable cardiomegaly. Left chest wall pacer/ AICD in place. Mediastinal contours are unremarkable. IMPRESSION: Stable right basilar airspace opacity.
[2022-12-22] MEDS: ACETAMINOPHEN 325 MG TABLET PO PRN (13:13)
[2022-12-22] MEDS: MELATONIN 3 MG TABLET PO SCH (21:00)
[2022-12-22] MEDS: ATORVASTATIN 20 MG TAB PO SCH (21:52)
[2022-12-23 03:34] LABS: Absolute Lymphocytes (CBC) 0.8 K/uL (0.7-4.9); Hematocrit 38.5 % (36.0-45.0); Lymphocytes % 6.7 % (15.3-44.8); MCV 85.8 fL (80-100); MPV 9.6 fL (7.6-11.3); RBC Red Blood Cell Count 4.49 M/uL (3.86-4.86)
[2022-12-23 03:50] LABS: Magnesium 1.9 mg/dL (1.6-2.4); Potassium 3.3 mEq/L (3.5-5.1)
[2022-12-23] MEDS ORDERED: ALBUMIN HUMAN 25% 100 ML IV ONE ×2 (06:53→18:00)
--- NOTE | 2022-12-23 07:07 | P.PN ---
Date of Service: 12/23/22 Subjective: Feels like breathing is doing pretty good; improving drank 1/2 ensure yesterday; poor intake she says food here upsets her stomach but tastes good needs IV reinsertion; patient is okay with it at this time ROS: 10 point ROS as noted above, otherwise negative Physical Exam: GEN: Alert, oriented, NAD HEENT: Normal conjunctiva, sclera anicteric CV: Regular rate and rhythm, 1+ b/l lower extremity edema Pulm: mild labored respirations on room air, diminished at bases b/l worse on R ABD: Soft, nontender, nondistended Integumentary: Skin breakdown - small superficial ulcerations on b/l legs, no drainage Neuro: Normal speech, normal affect vitals reviewed Problem List: Bilateral lower extremities cellulitis\\wound Pneumonia Acute on chronic systolic CHF exacerbation Bilateral lower extremity pain acute DVT Elevated troponin MAY on CKD 3A Hypertension Hyperlipidemia Insomnia Bilateral lower extremities cellulitis\\ wound empiric vanc/cefepime on admission; unclear if infected vs edematous; erythema waxes/wanes de-escalated to levaquin for pneumonia on 12/19 Blood cultures negative Wound care consulted; Dr. Last consulted PT eval Pneumonia concerning for aspiration. As noted on CT imaging CXR 12/19 - Mild to moderate right basilar lung opacity without significant change presumably pneumonia CXR 12/22 - Stable right basilar airspace opacity Continue antibiotics, neb treatment with Atrovent\\albuterol and O2 therapy speech therapy consulted Pulmonology consulted Acute on chronic systolic CHF exacerbation Cardiology consulted Continue diuresis with Lasix Daily weight and strict I/O Bilateral lower extremity pain acute DVT Doppler ultrasound indicates "noncompressible left popliteal vein with acute appearing thrombus" lovenox switched to eliquis will need eliquis on dc Elevated troponin Trend troponins - Currently down-trending Monitor on Telemetry felt to be demand ischemia MAY on CKD 3A Slight depreciation in kidney function noted compared to levels last week--likely secondary to cardiorenal syndrome We will continue to monitor renal function UTI, ruled out Patient reports dysuria, UA clear Hypertension Hyperlipidemia Insomnia Continue home medications Continue statin Continue melatonin VTE: eliquis Code: Full Dispo: SNF, agreeable 1-2 days Needs IV access for abx
[2022-12-23] MEDS ORDERED: POTASSIUM CL SA 10 MEQ TAB PO ONE (08:06)
[2022-12-23] MEDS: APIXABAN 5 MG TABLET PO SCH ×2 (08:46→22:51)
[2022-12-23] MEDS: levoFLOXacin 750 MG TAB PO SCH (08:46)
[2022-12-23] MEDS: carvediloL 3.125 MG TAB PO SCH (08:47)
[2022-12-23] MEDS: FUROSEMIDE 40 MG TABLET PO SCH ×2 (08:47→16:09)
[2022-12-23] MEDS: MEDIHONEY 44 ML TOPICAL TUBE TOP SCH (08:48)
[2022-12-23] MEDS: MELATONIN 3 MG TABLET PO SCH (21:00)
[2022-12-23] MEDS: ATORVASTATIN 20 MG TAB PO SCH (22:51)
[2022-12-24] MEDS: MEDIHONEY 44 ML TOPICAL TUBE TOP SCH (09:00)
[2022-12-24] MEDS: APIXABAN 5 MG TABLET PO SCH ×2 (09:57→21:53)
[2022-12-24] MEDS: carvediloL 3.125 MG TAB PO SCH (09:58)
[2022-12-24] MEDS: FUROSEMIDE 40 MG TABLET PO SCH ×2 (09:58→16:13)
[2022-12-24] MEDS: levoFLOXacin 750 MG TAB PO SCH (09:58)
[2022-12-24] MEDS: MELATONIN 3 MG TABLET PO SCH (21:53)
[2022-12-24] MEDS: ACETAMINOPHEN 325 MG TABLET PO PRN (21:53)
[2022-12-24] MEDS: ATORVASTATIN 20 MG TAB PO SCH (21:53)
[2022-12-24] MEDS: ENSURE ENLIVE 237 ML CAN PO SCH (21:54)
[2022-12-25] MEDS: ACETAMINOPHEN 325 MG TABLET PO PRN (03:11)
[2022-12-25] MEDS ORDERED: POTASSIUM CL SA 10 MEQ TAB PO ONE (06:00)
[2022-12-25] MEDS: FUROSEMIDE 40 MG TABLET PO SCH ×2 (09:00→16:21)
[2022-12-25] MEDS: MEDIHONEY 44 ML TOPICAL TUBE TOP SCH (09:00)
[2022-12-25] MEDS: carvediloL 3.125 MG TAB PO SCH (09:00)
[2022-12-25] MEDS: ENSURE ENLIVE 237 ML CAN PO SCH ×2 (09:00→21:56)
[2022-12-25] MEDS: levoFLOXacin 750 MG TAB PO SCH (09:26)
[2022-12-25] MEDS: APIXABAN 5 MG TABLET PO SCH ×2 (09:26→21:55)
[2022-12-25] MEDS ORDERED: MELATONIN 5 MG TABLET PO PRN (21:00)
[2022-12-25] MEDS: MELATONIN 3 MG TABLET PO SCH (21:00)
[2022-12-25] MEDS: ATORVASTATIN 20 MG TAB PO SCH (21:55)
[2022-12-26 06:37] LABS: Absolute Lymphocytes (CBC) 0.9 K/uL (0.7-4.9); Hematocrit 36.9 % (36.0-45.0); Lymphocytes % 5.5 % (15.3-44.8); MCV 84.7 fL (80-100); MPV 9.9 fL (7.6-11.3); RBC Red Blood Cell Count 4.36 M/uL (3.86-4.86)
[2022-12-26 06:55] LABS: Potassium 3.3 mEq/L (3.5-5.1)
[2022-12-26] MEDS: carvediloL 3.125 MG TAB PO SCH (09:00)
[2022-12-26] MEDS: FUROSEMIDE 40 MG TABLET PO SCH ×2 (09:00→17:00)
[2022-12-26] MEDS ORDERED: POTASSIUM CL SA 10 MEQ TAB PO ONE (09:00)
[2022-12-26] MEDS: APIXABAN 5 MG TABLET PO SCH ×2 (09:25→21:56)
[2022-12-26] MEDS: levoFLOXacin 750 MG TAB PO SCH (09:25)
[2022-12-26] MEDS: MEDIHONEY 44 ML TOPICAL TUBE TOP SCH (09:27)
[2022-12-26] MEDS: ENSURE ENLIVE 237 ML CAN PO SCH ×2 (09:28→21:56)
[2022-12-26] MEDS ORDERED: NA CHLORIDE 0.9% 250 ML IV ONE (18:25)
[2022-12-26] MEDS ORDERED: ALBUMIN HUMAN 25% 100 ML IV ONE (19:00)
[2022-12-26] MEDS ORDERED: ALBUMIN HUMAN 25% 50 ML IV ONE (20:46)
[2022-12-26] MEDS ORDERED: CLINDAMYCIN INJ 600 MG in NA CHLORIDE 0.9% 50 ML IV ONE (20:49)
[2022-12-26] MEDS ORDERED: DIGOXIN 0.25 MG/ML AMP IV ONE (20:50)
--- NOTE | 2022-12-26 21:53 | RAD REPORT ---
EXAM DESCRIPTION: [facility]aid Single View12/26/2022 9:32 pm CLINICAL HISTORY: Chest pain COMPARISON: December 23, 2019. FINDINGS: Minimal worsening in the right basilar consolidation Left lung appears clear of acute infiltrate Heart remains enlarged. Pacemaker leads in place IMPRESSION: Minimal worsening in the right basilar consolidation presumably pneumonia
[2022-12-26] MEDS: ATORVASTATIN 20 MG TAB PO SCH (21:56)
[2022-12-26] MEDS ORDERED: CLINDAMYCIN 600MG/D5W 50 ML IV ONE (22:05)
[2022-12-27] MEDS: DIGOXIN 0.25 MG/ML AMP IV SCH ×2 (03:07→10:10)
[2022-12-27] MEDS ORDERED: CLINDAMYCIN 600MG/D5W 50 ML IV ONE (04:02)
[2022-12-27] MEDS ORDERED: CLINDAMYCIN INJ 600 MG in NA CHLORIDE 0.9% 50 ML IV SCH (05:00)
--- NOTE | 2022-12-27 05:32 | P.PN ---
Subjective Date of Service: 12/24/22 Subjective: No new changes, No C/O voiced, Improving Patient is a 77-year-old female who is admitted to the hospital with cellulitis lower extremity. She was started on antibiotic therapy and switched over to oral antibiotics. Patient also had a right lower lobe pneumonia which was concerning for an aspiration pneumonia. Patient also with history of congestive heart failure with an ejection fraction of 33%. Patient was found have a DVT and she was started on anticoagulation. Patient with also acute on chronic renal insufficiency. [facility] Review of Systems 10-point ROS is otherwise unremarkable Physical Examination - Vital Signs Temperature: 97.7 F Blood Pressure: 94/56 Pulse: 87 Respirations: 17 Pulse Ox (%): 94 - Physical Exam General: Alert, In no apparent distress, Oriented x3 Respiratory: Diminished, Other (right lower lobe rhonchi) Cardiovascular: Regular rate/rhythm, Normal S1 S2, Systolic murmur Gastrointestinal: Normal bowel sounds, Soft and benign, Non-distended, No tenderness Musculoskeletal: Swelling Neurological: Sensation intact, Cranial nerves 3-12 intact, Other ( Generalized weakness) - Studies Medications List Reviewed: Yes Assessment & Plan - Problems (Diagnosis) (1) RLL pneumonia Current Visit: Yes Status: Acute (2) Cellulitis Current Visit: Yes Status: Acute (3) CKD (chronic kidney disease) Current Visit: Yes Status: Acute (4) Cardiomyopathy Current Visit: Yes Status: Acute (5) HTN (hypertension) Current Visit: Yes Status: Acute (6) Atrial fibrillation Current Visit: Yes Status: Acute (7) DVT (deep venous thrombosis) Current Visit: Yes Status: Acute Qualifiers: Affected thrombotic vein of extremity: popliteal Laterality: left (8) CAD (coronary artery disease) Current Visit: No Status: Acute (9) CHF (congestive heart failure) Current Visit: No Status: Acute Qualifiers: Heart failure type: systolic Heart failure chronicity: acute on chronic Qualified Code(s): I50.23 - Acute on chronic systolic (congestive) heart failure - Plan 1. Continue with IV antibiotic-skin and pneumonic infection 2. Continue with local wound care 3. Continue with wound care 4. Hep-Lock IV/continue with gentle diuresing as tolerated 5. Continue with anticoagulation 6. continue with aggressive physical therapy 7. awaiting for placement 8. GI and DVT prophylaxis Discharge Plan: Retirement Plan to discharge in: Greater than 2 days - Advance Directives Does patient have a Living Will: Yes Does patient have a Durable POA for Healthcare: No - Code Status/Comfort Care Code Status Assessed: Yes Code Status: Full Code Physician Review: Patient Assessed, Agree with Above Assessment and Plan Critical Care: No Time Spent Managing PTS Care (In Minutes): 35
--- NOTE | 2022-12-27 05:36 | P.PN ---
Date of Service: 12/25/22 Subjective Patient is improving; continue with antibiotics. Patient also with history of congestive heart failure with an ejection fraction of 33%. Patient was found have a DVT and she was started on anticoagulation. Patient with also acute on chronic renal insufficiency. [facility] Physical Examination - Vital Signs Reviewed - Physical Exam General: Alert, In no apparent distress, Oriented x3 Respiratory: Diminished, Other (right lower lobe rhonchi) Cardiovascular: Regular rate/rhythm, Normal S1 S2, Systolic murmur Gastrointestinal: Normal bowel sounds, Soft and benign, Non-distended, No tenderness Musculoskeletal: Swelling Neurological: No focal deficits Assessment & Plan - Problems (Diagnosis) (1) RLL pneumonia Current Visit: Yes Status: Acute (2) Cellulitis Current Visit: Yes Status: Acute (3) CKD (chronic kidney disease) Current Visit: Yes Status: Acute (4) Cardiomyopathy Current Visit: Yes Status: Acute (5) HTN (hypertension) Current Visit: Yes Status: Acute (6) Atrial fibrillation Current Visit: Yes Status: Acute (7) DVT (deep venous thrombosis) Current Visit: Yes Status: Acute Qualifiers: Affected thrombotic vein of extremity: popliteal Laterality: left (8) CAD (coronary artery disease) Current Visit: No Status: Acute (9) CHF (congestive heart failure) Current Visit: No Status: Acute Qualifiers: Heart failure type: systolic Heart failure chronicity: acute on chronic Qualified Code(s): I50.23 - Acute on chronic systolic (congestive) heart failure - Plan Continue with POC as mentioned below: 1. Continue with IV antibiotic-skin and pneumonic infection 2. Continue with local wound care 3. Continue with wound care 4. Hep-Lock IV/continue with gentle diuresing as tolerated 5. Continue with anticoagulation 6. continue with aggressive physical therapy 7. awaiting for placement 8. GI and DVT prophylaxis Discharge Plan: Long Term Plan to discharge in: Greater than 2 days - Advance Directives Does patient have a Living Will: Yes Does patient have a Durable POA for Healthcare: No - Code Status/Comfort Care Code Status Assessed: Yes Code Status: Full Code Physician Review: Patient Assessed, Agree with Above Assessment and Plan Critical Care: No Time Spent Managing PTS Care (In Minutes): 35
--- NOTE | 2022-12-27 05:37 | P.PN ---
Date of Service: 12/26/22 Subjective Patient continues to improve and clinical symptoms are improving. Working with PT Physical Examination - Vital Signs Reviewed - Physical Exam General: Alert, In no apparent distress, Oriented x3 Respiratory: Diminished, Other (right lower lobe rhonchi) Cardiovascular: Regular rate/rhythm, Normal S1 S2, Systolic murmur Gastrointestinal: Normal bowel sounds, Soft and benign, Non-distended, No tenderness Neurological: No focal deficits Assessment & Plan - Problems (Diagnosis) (1) RLL pneumonia Current Visit: Yes Status: Acute (2) Cellulitis Current Visit: Yes Status: Acute (3) CKD (chronic kidney disease) Current Visit: Yes Status: Acute (4) Cardiomyopathy Current Visit: Yes Status: Acute (5) HTN (hypertension) Current Visit: Yes Status: Acute (6) Atrial fibrillation Current Visit: Yes Status: Acute (7) DVT (deep venous thrombosis) Current Visit: Yes Status: Acute Qualifiers: Affected thrombotic vein of extremity: popliteal Laterality: left (8) CAD (coronary artery disease) Current Visit: No Status: Acute (9) CHF (congestive heart failure) Current Visit: No Status: Acute Qualifiers: Heart failure type: systolic Heart failure chronicity: acute on chronic Qualified Code(s): I50.23 - Acute on chronic systolic (congestive) heart failure - Plan Continue with POC as mentioned below: 1. Continue with IV antibiotic-repeat CXR 2. Continue with local wound care 3. Monitor hemodynamics 4. Hep-Lock IV 5. Continue with anticoagulation 6. continue with aggressive PT 7. awaiting for placement 8. GI and DVT prophylaxis Discharge Plan: Skilled Nursing Plan to discharge in: Greater than 2 days - Advance Directives Does patient have a Living Will: Yes Does patient have a Durable POA for Healthcare: No - Code Status/Comfort Care Code Status Assessed: Yes Code Status: Full Code Physician Review: Patient Assessed, Agree with Above Assessment and Plan Critical Care: No Time Spent Managing PTS Care (In Minutes): 35
[2022-12-27 07:34] LABS: Albumin 2.6 g/dL (3.4-5.0); Potassium 3.6 mEq/L (3.5-5.1); Protein, Total 6.1 g/dL (6.4-8.2); Thyroid Stimulating Hormone 3.19 uIU/mL (0.358-3.740)
[2022-12-27 07:35] LABS: Absolute Lymphocytes (CBC) 0.9 K/uL (0.7-4.9); Hematocrit 36.1 % (36.0-45.0); Lymphocytes % 7.3 % (15.3-44.8); MCV 85.8 fL (80-100); MPV 9.6 fL (7.6-11.3); RBC Red Blood Cell Count 4.21 M/uL (3.86-4.86)
[2022-12-27] MEDS: ENSURE ENLIVE 237 ML CAN PO SCH (09:00)
[2022-12-27] MEDS ORDERED: POTASSIUM 25 MEQ EFFERV TAB PO ONE (09:00)
[2022-12-27 09:16] VITALS: O2SAT 96
[2022-12-27] MEDS: FUROSEMIDE 40 MG TABLET PO SCH (10:07)
[2022-12-27] MEDS: carvediloL 3.125 MG TAB PO SCH (10:08)
[2022-12-27] MEDS: levoFLOXacin 750 MG TAB PO SCH (10:08)
[2022-12-27] MEDS: APIXABAN 5 MG TABLET PO SCH (10:08)
[2022-12-27] MEDS ORDERED: CLINDAMYCIN 600MG/D5W 50 ML IV SCH (11:00)
[2022-12-27] MEDS: MEDIHONEY 44 ML TOPICAL TUBE TOP SCH (12:00)
[2022-12-27 12:28] VITALS: BP 123/63; TEMP 99
== END 2022-12-27 17:15 | DRG 602 ==
LOC: ER 11:27 → ERHOLD 18:57 → 2ND 20:40
PROVIDERS: ADMIT Hospitalist; ATTEND Hospitalist
DX: L03.115 Cellulitis of right lower limb (principal); I50.23 Acute on chronic systolic (congestive) heart failure; J18.9 Pneumonia, unspecified organism; N17.9 Acute kidney failure, unspecified; I13.0 Hypertensive heart and chronic kidney disease with heart failure and stage 1 through stage 4 chronic kidney disease, or unspecified chronic kidney disease; I82.432 Acute embolism and thrombosis of left popliteal vein; L97.921 Non-pressure chronic ulcer of unspecified part of left lower leg limited to breakdown of skin; L97.911 Non-pressure chronic ulcer of unspecified part of right lower leg limited to breakdown of skin; I42.9 Cardiomyopathy, unspecified; N18.31 Chronic kidney disease, stage 3a; I48.0 Paroxysmal atrial fibrillation; G47.00 Insomnia, unspecified; E78.00 Pure hypercholesterolemia, unspecified; I25.10 Atherosclerotic heart disease of native coronary artery without angina pectoris; R77.8 Other specified abnormalities of plasma proteins; Z95.0 Presence of cardiac pacemaker; Z88.1 Allergy status to other antibiotic agents; Z88.0 Allergy status to penicillin; Z96.653 Presence of artificial knee joint, bilateral; Z79.899 Other long term (current) drug therapy; Z20.822 Contact with and (suspected) exposure to COVID-19
CPT/HCPCS: 36415; 71045; 71250; 74176; 80048; 80053; 80076; 80202; 81003; 82533; 83605; 83735; 83880; 84100; 84132; 84145; 84439; 84443; 84484; 85025; 85027; 85610; 87040; 92610; 93005; 93970; 96372; 97116; 97161; 97530; 99285; J0690; J0692; J1160; J1940; J2185; J2405; J7030; J7050; J7613; J7644; P9047; U0003

== ENCOUNTER 2023-02-26 13:21 | Inpatient (IN) | payer MEDICARE ==
--- OUTSIDE RECORDS SUMMARY | 2023-02-26 13:26 | XMS REPORT | Continuity of Care Document ---
:1945 Author Organization [facility] t Address [address] [place] [id number] Care Team Providers Name Role Phone Clarice Dexter Primary Care Physician Clarice Dexter Attending Clinician Unavailable Marilyn Pinto Attending Clinician Unavailable Bridger Segal Attending Clinician Unavailable ASHLEY HOLMAN Attending Clinician Unavailable Mei-Mbayo_A_AH Attending Clinician Unavailable ASHLEY HOLMAN Attending Clinician Unavailable Mei-Mbayo_A_AH Admitting Clinician Unavailable Payers Payer Name Policy Type Policy Number Effective Date Expiration Date S lissette [facility] DGHKYW 2021 OON 00:00:00 [employer] MEDICARE 53 [id number] 2021 2021 Common 00:00:00 00:00:00 [facility] DGHKYW 2021 (MEDICARE 00:00:00 REPLACEMENT HMO) [employer] MEDICARE 53 [id number] 2021 Common 00:00:00 [facility] - [id number] 2019 [employer]US 00:00:00 (MEDICARE REPLACEMENT/ADVAN TAGE - HMO) Problems Condition Condition Condition Status Onset Resolution Last Treating Co mments Source Name Details Category Date Date Treatment Clinician Date [id number] Balance Problem Commo n problem Spirit - [facility] [id number] Coronary Problem Com mon 107 artery Spirit disease - [facility] involving [facility] coronary Medical artery of Center match-e-be-nash-she-wish band heart without angina pectoris [id number] Congestive Problem Com mon heart Spirit failure, - [facility] un[facility] d HF [facility] chronicity Medica l , Center unspecifie d heart failure type [id number] Mixed Problem Common hyperlipid Spirit emia [facility] [id number] GERD Problem Common without Spirit esophagiti [facility] s [facility] [id number] Allergic Problem Commo n rhinitis, Spirit unspecifie - [facility]I d St seasonalit [facility] y, Medical unspecifie Center d trigger Peripheral Stasis Problem Commo n venous dermatitis Spirit insufficie of both - CHI ncy legs [facility] [id number] Prediabete Problem Co mmon s [facility] Type II Controlled Problem Comm on diabetes type 2 Spirit mellitus diabetes - [facility] without mellitus St complicati without [facility] complicati Medica l on, Center without long-term current use of insulin [id number] Osteoarthr Problem C ommon 36081 itis of Spirit left hip, - [facility]I unspecifie [facility] osteoarthr Medica l itis type Center [id number] Ulcer of Problem Comm on right Spirit lower - [facility]I extremity, St limited to [facility] breakdown Medical of skin Center [id number] HTN Problem Common (hypertens Spirit ion), - CHI benign [facility] [id number] Ulcer of Problem Comm on right Spirit lower leg, - CHI with St unspecifie [facility] d severity Medica l Center [id number] Hypokalemi Problem Com mon a Spirit [facility] [id number] ICD Problem Common (implantab Spirit le - [facility]I cardiovert St er-defibri [facility] llator) in Medica l place Center Allergies, Adverse Reactions, Alerts Allergy Allergy Status Severity Reaction(s) Onset Inactive Treating Comm ents Source Name Type Date Date Clinician amoxicil amoxicil Active Swelling Comm on chyna chyna Spirit [facility] Social History Social Habit Start Date Stop Date Quantity Comments Source History of Tobacco Use Co mmon [facility] Sex Assigned At Com [facility] Smoking Status Start Date Stop Date Source Tobacco [facility] Medications Ordered Filled Start Stop Current Ordering [...] 00:00: MOUTH - CHI 00 EVERY DAY [facility] Carvedilol Carvedilol Yes Marilyn take 1 tab Common 1-24 Millender Spirit 00:00: - [facility]I 00 [facility] Pravastatin Pravastatin Yes Marilyn 1 tablet Common Sodium [facility] Furosemide Furosemide Yes Marilyn [address] [facility] Entresto Entresto Yes Marilyn 1 tablet Co mmon [facility] Fish Oil Fish Oil Yes Marilyn 1 capsule C ommon [facility] Metolazone Metolazone Yes Marilyn [address] [facility] Melatonin Melatonin Yes Marilyn 1 tablet Common Millender at bedtime Spir it as needed [facility] Vitamin D Vitamin D Yes Marilyn [address] [facility] Ferrous Ferrous No Sulfate 325 Sulfate 325 [...] Curcumin 500 MG 500 MG 500 MG [place] 3 340 [place] 3 340 No 1{capsu QD [place] 3 MG MG le} 340 MG Montelukast [...] Curcumin 500 MG 500 MG 500 MG [place] 3 340 [place] 3 340 No 1{capsu QD [place] 3 MG MG le} 340 MG Montelukast [...] C 500 MG 500 MG 500 MG [place] 3 340 [place] 3 340 No 1{capsu QD [place] 3 MG MG le} 340 MG Turmeric [...] 1200 MG 1200 MG le} 1200 MG [place] 3 340 [place] 3 340 No 1{capsu QD [place] 3 MG MG le} 340 MG Turmeric [...] t} (1000 UT) (1000 UT) Klor-Con Klor-Con Marilyn 1 tablet C ommon M20 M20 06-07 Millender with food Spir it 00:00 - CHI :00 [facility] Immunizations Ordered Immunization Filled Immunization Date Status Commen ts Source Name Name [place] [id number] 2021-09-12 Completed Co mmon Spirit Vaccine (Low Dose Vaccine (Low Dose 16:11:00 - [facility] Booster[facility] Booster) [place] [address] 2021-09-12 Completed Co mmon [facility] Vaccine (Low Dose Vaccine (Low Dose 16:11:00 - [facility] Booster) Booster) [place] [address] 2021-09-12 Completed Co mmon Spirit Vaccine (Low Dose Vaccine (Low Dose 16:11:00 - [facility] Booster) Booster) [place] [address] 2021-09-12 Completed Co mmon Spirit Vaccine (Low Dose Vaccine (Low Dose 16:11:00 - [facility] Booster) Booster) [place] [address] 2021-09-12 Completed Co mmon Spirit Vaccine (Low Dose Vaccine (Low Dose 16:11:00 - [facility] Booster) Booster) [place] [address] 2021-09-12 Completed Co mmon Spirit Vaccine (Low Dose Vaccine (Low Dose 16:11:00 - [facility] Booster) Booster) [facility] Moderna COVID-19 Moderna COVID-19 2021-09-12 Completed Co mmon Spirit Vaccine (Low Dose Vaccine (Low Dose 16:11:00 - [facility] Booster) Booster) [facility] COVID-19 Vaccine COVID-19 Vaccine 2020-11-17 Completed Co mmon Spirit (Myranda) (Myranda) 13:54:00 [facility] COVID-19 Vaccine COVID-19 Vaccine 2020-11-17 Completed Co mmon Spirit (Myranda) (Myranda) 13:54:00 [facility] COVID-19 Vaccine COVID-19 Vaccine 2020-11-17 Completed Co mmon Spirit (Myranda) (Myranda) 13:54:00 [facility] COVID-19 Vaccine COVID-19 Vaccine 2020-11-17 Completed Co mmon Spirit (Myranda) (Myranda) 13:54:00 [facility] COVID-19 Vaccine COVID-19 Vaccine 2020-11-17 Completed Co mmon Spirit (Myranda) (Myranda) 13:54:00 [facility] COVID-19 Vaccine COVID-19 Vaccine 2020-11-17 Completed Co mmon Spirit (Myranda) (Myranda) 13:54:00 [facility] COVID-19 Vaccine COVID-19 Vaccine 2020-11-17 Completed Co mmon Spirit (Myranda) (Myranda) 13:54:00 [facility] COVID-19 Vaccine COVID-19 Vaccine 2020-11-17 Completed Co mmon Spirit (Myranda) (Myranda) 13:54:00 [facility] Vital Signs Vital Name Observation Time Observation Value Comments Source height 2021-12-18 14:00:00 65.5 [in_i] [facility] weight 2021-12-18 14:00:00 180 [lb_av] [facility] temperature 2021-12-18 14:00:00 97.7 [degF] [facility] bmi 2021-12-18 14:00:00 29.49 kg/m2 Common [facility] oximetry 2021-12-18 14:00:00 100 % Common [facility] respiratory rate 2021-12-18 14:00:00 18 /min Comm on [facility] blood pressure 2021-12-18 14:00:00 152 mm[Hg] Common [facility] - systolic [facility] blood pressure 2021-12-18 14:00:00 62 mm[Hg] Common [facility] - diastolic [facility] height 2021-12-18 14:40:00 65.5 [in_i] Common [facility] weight 2021-12-18 14:40:00 180 [lb_av] Common [facility] temperature 2021-12-18 14:40:00 97.7 [degF] [facility] bmi 2021-12-18 14:40:00 29.49 kg/m2 [facility] oximetry 2021-12-18 14:40:00 100 % [facility] respiratory rate 2021-12-18 14:40:00 18 /min Comm on [facility] blood pressure 2021-12-18 14:40:00 121 mm[Hg] Common [facility] - systolic [facility] blood pressure 2021-12-18 14:40:00 76 mm[Hg] Common [facility] diastolic [facility] Procedures This patient has no known procedures. Encounters Start End Encounter Admission Attending Care Care Encounter Source Date/Time Date/Time Type Type Clinicians Facility Department ID 2022-12-12 Outpatient STLMLC STLMLC [id number] Common 15:34:[id number] [facility] 2022-10-07 Outpatient STLMLC STLMLC [id number] Common 11:33:[id number] [facility] 2022-09-04 Outpatient Clarice Dexter STLMLC STLMLC [id number] Common 16:39:[id number] [facility] 2022-07-25 Outpatient [facility] [id number] [place] 11:44:03 [id number] [facility] 2022-06-06 Outpatient Dexter, Na STLMLC STLMLC [id number] Common 14:49:01 [facility] 2021-11-28 Outpatient Dexter, Na STLMLC STLMLC [id number] Common 10:00:01 [facility] 2021-10-03 Outpatient Dexter, Na STLMLC STLMLC [id number] 2 Common 14:32:34 [facility] 2021-10-03 Outpatient Dexter, Na STLMLC STLMLC [id number] 2 Common 14:31:40 [facility] 2021-10-03 Outpatient Dexter, Na STLMLC STLMLC [id number] 2 Common 14:31:26 [facility] 2021-10-03 Outpatient Dexter, Na STLMLC STLMLC [id number] 2 Common 14:29:56 [facility] 2021-10-03 Outpatient Dexter, Na STLMLC STLMLC [id number] 2 Common 12:47:01 [facility] 2021-10-03 Outpatient Dexter, Na STLMLC STLMLC [id number] 2 Common 12:46:[id number] [facility] 2021-10-03 Outpatient Dexter, Na STLMLC STLMLC [id number] 2 Common 12:40:[address] [facility] 2021-10-03 Outpatient Dexter, Na STLMLC STLMLC [id number] 2 Common 12:39:[id number] [facility] 2021-10-03 Outpatient STLMLC STLMLC [id number] Common 12:27:[address] [facility] 2021-10-03 Outpatient STLMLC STLMLC [id number] Common 12:26:[id number] [facility] 2021-10-03 Outpatient STLMLC STLMLC [id number] Common 12:18:[id number] [facility] 2021-10-03 Outpatient Millender, STLMLC STLMLC [id number] Common 12:16:[address] [facility] 2021-10-03 Outpatient Millender, STLMLC STLMLC [id number] Common 11:44:[id number] [facility] 2021-10-03 Outpatient Millender, STLMLC STLMLC [id number] Common 11:44:[id number] [facility] 2021-10-03 Outpatient STLMLC STLMLC [id number] Common 11:43:[id number] [facility] 2021-10-03 Outpatient STLMLC STLMLC [id number] Common 11:33:[address] [facility] 2021-10-03 Outpatient Segal, STLMLC STLMLC [id number] Common 11:23:14 [facility] [address] [facility] 2021-07-25 Outpatient [facility], [facility] [id number] [place] 11:49:27 [facility] 2021-04-30 Outpatient [facility], [facility] [id number] [place] 15:44:40 [facility] 2021-01-13 Outpatient [facility]OUR, [facility] [id number] [place] 03:03:23 [facility] 2022-07-01 2022-07-01 (TEL) STLMLC STLMLC [id number] Co mmon 00:00:00 00:00:00 [facility] 2022-03-22 2022-03-22 Outpatient DMG DMG [id number] [facility] 03:56:00 03:56:00 0715 [facility] 2022-03-22 2022-03-22 Outpatient DMG DMG [id number] [facility] 00:00:00 00:00:00 0506 [facility] 2022-03-22 2022-03-22 Outpatient DMG DMG [id number] [facility] 00:00:00 00:00:00 0516 [facility] l [facility] 2022-03-21 2022-03-21 OL DIG E/M STLMLC STLMLC [id number] Common 00:00:00 00:00:00 [facility] 11-20 Spir it MIN - CHI [facility] 2021-12-18 2021-12-18 SUB ANNUAL STLMLC STLMLC [id number] Common 00:00:00 00:00:00 MCR Spirit WELLNESS - CHI VISIT [facility] 2021-12-18 2021-12-18 OFFICE STLMLC STLMLC [id number] Co mmon 00:00:00 00:00:00 VISIT EST Spir it PT LEVEL 3 - CHI [facility] 2021-11-08 2021-11-08 (TEL) STLMLC STLMLC [id number] Co mmon 00:00:00 00:00:00 [facility]I [facility] 2021-10-22 2021-10-22 [place] [id number] [facility] 12:00:00 12:00:00 0214 [facility] 2021-09-17 2021-09-17 OL DIG E/M STLMLC STLMLC [id number] Common 00:00:00 00:00:00 [facility] 11-20 Spir it MIN - CHI [facility] 2021-09-12 2021-09-12 (COVID STLMLC STLMLC [id number] Co mmon 00:00:00 00:00:00 Inj) COVID Spi rit Injection - [facility] 2021-09-10 2021-09-10 (TEL) STLMLC STLMLC [id number] Co mmon 00:00:00 00:00:00 Spirit - [facility] 2021-08-28 2021-08-28 Telephone H[facility]pour, UTP 6400 [id number] [place] 00:00:00 00:00:[address] [id number] Health [id number] 1 2021-06-28 2021-06-28 Telephone [facility], UTP 6400 [id number] [place] 00:00:00 00:00:[address] [id number] Health [id number] 1 2021-06-06 2021-06-06 Outpatient DMG DMG [id number] [facility] 08:01:00 08:01:00 0929 Med[facility] l [facility] 2021-03-20 2021-03-20 Telephone Brody, EMILY 6400 [id number] [place] 00:00:00 00:00:00 Ashley REAGAN [id number] [place] [id number] 2021-03-09 2021-03-09 Outpatient STLMLC STLMLC [id number] Common 00:00:00 00:00:00 [facility] 2021-03-06 2021-03-06 Outpatient STLMLC STLMLC [id number] Common 00:00:00 00:00:00 [facility] 2021-03-05 2021-03-05 [id number] 06:02:00 06:02:00 _A_AH [id number] Family Practic e 2020-12-14 2020-12-14 Outpatient DMG DMG [id number] [facility] 08:00:00 08:00:00 0408 Med[facility] l Group 2020-12-07 2020-12-07 Outpatient STLMLC STLMLC [id number] Common 00:00:00 00:00:00 [facility] 2020-12-07 2020-12-07 Outpatient STLMLC STLMLC [id number] Common 00:00:00 00:00:00 [facility] 2020-11-17 2020-11-17 Outpatient STLMLC STLMLC [id number] Common 00:00:00 00:00:00 [facility] 2020-10-09 2020-10-09 Outpatient STLMLC STLMLC [id number] Common 00:00:00 00:00:00 [facility] 2020-08-18 2020-08-18 Outpatient STLMLC STLMLC [id number] Common 00:00:00 00:00:00 [facility] 2020-05-18 2020-05-18 [facility] [id number] Common 09:00:00 09:00:00 t [facility] [address] Spir [address] Road [facility] 2020-02-03 2020-02-04 Outpatient HEMATPOUR, [facility] CAR [id number] [facility] 12:02:00 09:11:00 GEOVANNIASHAYAR 2019-11-04 2019-11-04 Outpatient Mei-Mbayo VFP VFP [id number] Village 12:54:00 12:54:00 _A_AH [id number] Family Practic e 2019-11-04 2019-11-04 Outpatient Mei-Mbayo VFP VFP [id number] [place] 12:54:00 12:54:00 _A_AH [id number] Family Practic e 2019-11-04 2019-11-04 Outpatient Mei-Mbayo VFP VFP [id number] Village 12:54:00 12:54:00 _A_AH [id number] Family Practic e 2019-11-04 2019-11-04 Outpatient Mei-Mbayo VFP VFP [id number] [facility] 12:54:00 12:54:00 _A_AH [id number] Family Practic e 2019-10-08 2019-10-08 Out[facility] [id number] Common 06:38:00 06:38:[address] [facility] 2019-10-06 2019-10-06 Out[facility] [id number] Common 16:00:00 16:00:[address] [facility] 2019-09-21 2019-09-21 Outpatient [facility] [id number] Common 11:00:00 11:00:[address] [facility] 2019-08-18 2019-08-18 Outpatient [facility] [id number] Common 10:00:00 10:00:[address] [facility] 2018-10-01 2018-10-01 Outpatient [facility] [id number] Common 09:42:00 09:42:[address] [facility] 2018-10-01 2018-10-01 Outpatient Anyivaishnavi Jj [id number] Common 09:30:00 09:30:00 t [facility] [employer] [facility] Results This patient has no known results.
[2023-02-26 13:57] LABS: Absolute Lymphocytes (CBC) 0.5 K/uL (0.7-4.9); Hematocrit 41.3 % (36.0-45.0); Lymphocytes % 3.3 % (15.3-44.8); MCV 89.3 fL (80-100); MPV 10.3 fL (7.6-11.3); RBC Red Blood Cell Count 4.63 M/uL (3.86-4.86)
[2023-02-26 14:01] LABS: Protime INR 1.52
[2023-02-26 14:18] LABS: Bilirubin Total 2.1 mg/dL (0.2-1.0); Potassium 3.8 mEq/L (3.5-5.1); Protein, Total 7.1 g/dL (6.4-8.2); Troponin High Sensitivity 43.9 pg/mL (<58.9)
[2023-02-26 14:26] LABS: Blood Morphology Comment NOT SEEN (NOT SEEN); Platelet Estimate ADEQ; White Blood Cell Scan OK (OK)
[2023-02-26] MEDS ORDERED: CEFEPIME 2 GM VIAL ONE (14:28)
[2023-02-26] MEDS ORDERED: NA CHLORIDE 0.9% 100 ML ONE (14:29)
[2023-02-26] MEDS ORDERED: NA CHLORIDE 0.9% 1,000 ML ONE (14:48)
--- NOTE | 2023-02-26 14:53 | RAD REPORT ---
EXAM DESCRIPTION: CT - CTHCSPWOC - 02/26/2023 2:03 pm CLINICAL HISTORY: Trauma, head and neck injury. TRAUMA COMPARISON: No comparisons TECHNIQUE: Axial thin cut noncontrast CT images of the head were obtained. Axial thin cut noncontrast CT images of the cervical spine were obtained. Multiplanar reformatted images were generated and reviewed. All CT scans are performed using dose optimization technique as appropriate and may include automated exposure control or mA/KV adjustment according to patient size. FINDINGS: CT HEAD WITHOUT CONTRAST: Motion artifact near the vertex limits evaluation. Left parieto-occipital region of hypoattenuation, suggestive of a subacute infarct. Small regions of encephalomalacia along the right operculum and lef t anterior frontal/ opercular cortex suggestive of sequelae of remote ischemia. Mild diffuse parenchy mal volume loss. Patchy deep white matter hypoattenuation, nonspecific, suggestive of chronic small v essel ischemic changes. No acute hemorrhage, hydrocephalus or extra-axial collection is identified.No other areas of brain edema or midline shift. The paranasal sinuses and mastoids are clear.The calvarium is intact. CT CERVICAL SPINE WITHOUT CONTRAST: Motion artifact along the anterior neck limits evaluation. No fracture or subluxation.No prevertebral soft tissues swelling is identified. Multilevel degenerative changes with up to severe disc height loss, most notably at C5-6 and C6-7, with uncovertebral joint and facet degenerative changes contribu ting to mild neural foraminal narrowing. No evidence of bony central canal stenosis. IMPRESSION: No acute traumatic intracranial or cervical spine findings. Left parieto-occipital region of hypoattenuation suggestive of a subacute infarct. Other sequelae of remote ischemia noted in the bilateral frontal regions. Other chronic findings as above.
--- NOTE | 2023-02-26 14:57 | RAD REPORT ---
EXAM DESCRIPTION: CT - Spine Lumbar Wo Con - 02/26/2023 2:07 pm CLINICAL HISTORY: trauma COMPARISON: No comparisons TECHNIQUE: Axial noncontrast CT imaging of the lumbar spine was performed with coronal and sagittal re-formatted images. All CT scans are performed using dose optimization technique as appropriate and may include automated exposure control or mA/KV adjustment according to patient size. FINDINGS: No acute lumbar spine fracture seen. No aggressive marrow pattern. Slightly exaggerated lisa mbar lordosis. Gentle dextroconvex curvature with apex at L1-2. Paraspinal tissues are normal in thickness. No paraspinal abscess or hematoma seen. Intervertebral disc disease assessment is inherently limited by CT. Within these limitations, no high -grade canal stenosis suspected. Asymmetric disc height loss with partial ankylosis along the right a spect of T12-L1. Moderate disc height loss at L1-2 and mild disc height loss at L2-3. Advanced facet degenerative changes of the lower lumbar levels with multilevel disc bulges, contributing to up to mo derate neural foraminal narrowing on the left at L1-2, L2-3, and L3-4. Status post cholecystectomy. IMPRESSION: No acute osseous abnormality. Multilevel degenerative changes as above. Please consider MRI follow-up for assessment of disc diseas e and neural involvement as clinically indicated.
--- NOTE | 2023-02-26 15:01 | RAD REPORT ---
EXAM DESCRIPTION: CT - Pelvis Wo Cont - 02/26/2023 2:07 pm CLINICAL HISTORY: TRAUMA COMPARISON: No comparisons TECHNIQUE: Thin cut axial CT imaging of the pelvis was performed without IV contrast. Multiplanar re formats were generated and reviewed. All CT scans are performed using dose optimization technique as appropriate and may include automated exposure control or mA/KV adjustment according to patient size. FINDINGS: No acute osseus abnormality. Bilateral moderate hip joint degenerative changes worse on th e right. Sacroiliac joint patent bilaterally. No suspicious osseous lesions. No dilated bowel loops or bowel wall thickening. Mild colonic diverticula. No free air, free fluid or inflammatory stranding. No hernia, mass or bulky lymphadenopathy. Layering radiodensities along the left dependent aspect of the bladder, may relate to gravel or small calculi. IMPRESSION: No acute osseous abnormality of the bony pelvis. Degenerative changes of the PA joints worse on the right. Dependent radiodensities along the left aspect of the bladder may relate to gravel or small calculi.
[2023-02-26] MEDS ORDERED: FENTANYL CITR 100 MCG/2 ML ONE (15:35)
--- NOTE | 2023-02-26 15:42 | RAD REPORT ---
EXAM DESCRIPTION: RADChest Single View02/26/2023 2:22 pm CLINICAL HISTORY: syncope COMPARISON: Chest Single View dated 12/26/2022; Chest Single View dated 12/22/2022; Chest Single View dated 12/19/2022; Chest Single View dated 12/17/2022 TECHNIQUE: Portable AP view of the chest. FINDINGS: Stable right basilar opacification with suggestion of small subpulmonic effusion. Left barbara g is clear. No pneumothorax or effusion. Stable cardiomegaly. Mediastinal contours are unremarkable. Left chest wall pacer/AICD unchanged in position IMPRESSION: Stable right basal opacification and possible effusion.
[2023-02-26] MEDS ORDERED: dilTIAZem HCL 25 MG/5 ML VIAL IV ONE (16:49)
--- NOTE | 2023-02-26 17:54 | ER ---
Nurse's Notes [facility] Name: Tawny León Age: 77 yrs Sex: Female : 1945 Arrival Date: 02/26/2023 Time: 13:[address] Private MD: Diagnosis: Severe sepsis with septic shock;Cellulitis to the right lower extremity;Syncope;Atrial fibrillation with rapid ventricular rate Presentation: 02/26 13:15 Chief complaint: EMS states: patient from home. Fell at home possibly from standing db position. Pt complains of right hip pain. patient was found by apartment management, states patient possibly fell this AM. pt unknown down time. Pt does not remember falling. Pt O2 sat 85% on RA upon EMS arrival. placed on 2L NC, O2. Coronavirus screen: Vaccine status: Patient reports receiving the 2nd dose of the covid vaccine. Client denies travel out of the [place] in the last 14 days. At this time, the client does not indicate any symptoms associated with coronavirus-19. Ebola Screen: Patient negative for fever greater than or equal to 101.5 degrees Fahrenheit, and additional compatible Ebola Virus Disease symptoms Patient denies exposure to infectious person. Patient denies travel to an Ebola-affected area in the 21 days before illness onset. No symptoms or risks identified at this time. Initial Sepsis Screen: Does the patient meet any 2 criteria? RR > 20 per min. HR > 90 bpm. Yes Does the patient have a suspected source of infection? Yes: Skin breakdown/wound If YES to both, name of provider notified: Carlos Montalvo MD Risk Assessment: Do you want to hurt yourself or someone else? Patient reports no desire to harm self or others. Onset of symptoms was February 26, 2023. Mechanism of Injury: Fall from standing position. 13:15 Method Of Arrival: EMS: [facility] db 13:15 Acuity: KENTRELL 2 db Triage Assessment: 13:31 General: Appears in no apparent distress. comfortable, Behavior is calm, cooperative. nj1 Pain: Complains of pain in right leg. Neuro: Level of Consciousness is awake, alert, obeys commands, Oriented to person, place, time, situation, Speech is normal. Historical: - Allergies: 13:31 PENICILLINS; nj1 - PMHx: 13:31 Congestive heart failure; Hypercholesterolemia; Hypertensive disorder; nj1 - PSHx: 13:31 DASIA knee; pacemaker; nj1 - Immunization history:: Adult Immunizations unknown, Client reports receiving the 2nd dose of the Covid vaccine. - Social history:: Smoking status: Patient denies any tobacco usage or history of. - Family history:: not pertinent. Screenin:15 [facility] ED Fall Risk Assessment (Adult) History of falling in the last 3 months, ss including since admission Yes- physiologic fall (2 pts) Confusion or Disorientation No (0 pts) Intoxicated or Sedated No (0 pts) Impaired Gait No (0 pts) Mobility Assist Device Used Yes (1 pt) Altered Elimination No (0 pt) Score/Fall Risk Level 3 or more points = High Risk Oriented to surroundings, Maintained a safe environment, Hourly rounding (assess needs \\T\\ fall precautionary measures) done, Used ambulatory aids as needed (educated on \\T\\ assisted with), Offered frequent toileting (1:1 observation), Remained with patient while ambulating, Utilized family, sitter, or virtual special effects makeup artist as indicated. 13:15 Abuse screen: Denies threats or abuse. Denies injuries from another. Nutritional ss screening: No deficits noted. Tuberculosis screening: No symptoms or risk factors identified. Assessment: 13:15 General: Appears in no apparent distress. uncomfortable, Behavior is calm, cooperative, ss appropriate for age. Pain: Complains of pain in Hips. Neuro: Level of Consciousness is awake, alert, obeys commands, Oriented to person, place, situation. Cardiovascular: Patient's skin is warm and dry. Rhythm is irregular. Respiratory: Airway is patent Respiratory effort is even, unlabored, Respiratory pattern is tachypnea. Derm: Redness noted to lower legs, worse on right than left. 13:25 Reassessment: Code sepsis called for patient. db 14:02 Reassessment: Pt not in room, getting imaging done at this time. nj1 14:45 Reassessment: Patient appears in no apparent distress at this time. Pt resting/sleeping ss at this time. 15:59 Reassessment: Patient appears in no apparent distress at this time. Pt resting/sleeping.ss 16:40 Reassessment: Patient appears in no apparent distress at this time. Patient and/or ss family updated on plan of care and expected duration. Pain level reassessed. Patient is alert, oriented x 3, equal unlabored respirations, skin warm/dry/pink. 17:45 Reassessment: Patient appears in no apparent distress at this time. Patient and/or nj1 family updated on plan of care and expected duration. Pain level reassessed. Patient is alert, oriented x 3, equal unlabored respirations, skin warm/dry/pink. 18:30 Reassessment: Patient appears in no apparent distress at this time. Patient and/or nj1 family updated on plan of care and expected duration. Pain level reassessed. Patient is alert, oriented x 3, equal unlabored respirations, skin warm/dry/pink. 19:10 Reassessment: Unsuccessful attempt to call report at this time. nj1 20:00 Reassessment: Patient appears in no apparent distress at this time. Patient and/or nj1 family updated on plan of care and expected duration. Pain level reassessed. Patient is alert, oriented x 3, equal unlabored respirations, skin warm/dry/pink. 21:10 Reassessment: Call placed to patients neighbor "Cristal" to advise of patients admission [facility] per patients request. [phone]. Vital Signs: 13:15 BP 92 / 53; Pulse 114; Resp 36 S; Temp 98.8(O); Pulse Ox 100% on 2 lpm NC; Weight 68.04 db kg; Height 5 ft. 5 in. ; Pain 10/10; 13:43 BP 97 / 82; Pulse 105; Resp 30; Pulse Ox 100% on R/A; nj1 14:45 BP 104 / 90; Pulse 106; Resp 24; Pulse Ox 98% on R/A; ss 15:54 BP 104 / 86; Pulse 107; Resp 24; Pulse Ox 97% ; ss 16:40 BP 103 / 76; Pulse 107; Resp 30; Pulse Ox 98% on R/A; ss 17:30 BP 96 / 77; Pulse 94; Resp 28; Pulse Ox 97% on R/A; ss 18:29 BP 104 / 70; Pulse 99; Resp 30; Pulse Ox 100% ; nj1 19:24 BP 108 / 66; Pulse 89; Resp 28; Pulse Ox 97% ; nj1 13:15 Body Mass Index 24.96 (68.04 kg, 165.1 cm) db 13:15 Pain Scale: Adult db ED Course: 13:20 Patient has correct armband on for positive identification. Bed in low position. Call ss light in reach. Side rails up X 1. 13:24 Patient arrived in ED. db 13:24 Carlos Montalvo MD is Attending Physician. rt 13:30 Triage completed. db 13:31 Cherise Richardson, RN is Primary Nurse. nj1 13:32 Arm band placed on Patient placed in an exam room. nj1 13:35 Inserted saline lock: 22 gauge in right antecubital area, using aseptic technique. nj1 Blood collected. 14:05 CT Head C Spine In Process Unspecified. EDMS 14:09 CT Lumbar Spine Wo Con In Process Unspecified. EDMS 14:09 CT Pelvis wo Cont In Process Unspecified. EDMS 14:23 Chest Single View XRAY In Process Unspecified. EDMS 17:30 Straight cath inserted, using sterile technique, 14 Fr. Returned None. Patient njRosio tolerated well. 17:48 Mikael Funes MD is Hospitalizing Provider. rt 19:00 Notified Nurse Practitioner and/or Physician Brick Chimney Builder of No urine obtained from nj1 straight cath. 21:00 No provider procedures requiring assistance completed. nj1 21:00 Patient admitted, IV remains in place. nj1 Administered Medications: 14:23 Drug: Cefepime IVPB 2 grams Route: IVPB; Rate: 200 ml/hr; Infused Over: 30 mins; Site: ss right antecubital; 15:38 Follow up: Response: No adverse reaction; IV Status: Completed infusion; IV Intake: 50mlss 14:43 Drug: NS 0.9% IV 1000 ml Route: IV; Rate: 1 bolus; Site: right antecubital; ss 15:33 Drug: fentaNYL (PF) IVP 50 mcg Route: IVP; Site: right antecubital; ss 16:00 Follow up: Response: No adverse reaction ss 16:40 Drug: Diltiazem IVP 10 mg Route: IVP; Site: right antecubital; ss Medication: 21:00 VIS not applicable for this client. nj1 Intake: 15:38 IV: 50ml; Total: 50ml. Outcome: 17:54 Decision to Hospitalize by Provider. rt 21:00 Admitted to Med/surg accompanied by tech, via stretcher, room 213, Report called to [facility] Report called by nurse Ryley Curran 21:00 Condition: stable nj1 21:00 Instructed on the need for admit. 21:06 Patient left the ED. kd3 Signatures: Dispatcher [employer] EDMS Tiffany Gaitan, RN Richa Marcum RN RN kd3 Yoon Quintero, RN RN Carlos Funes MD MD rt Cherise Richardson RN RN nj1
--- NOTE | 2023-02-26 17:54 | EDPHYS ---
Physician Documentation [facility] Name: Tawny León Age: 77 yrs Sex: Female : 1945 Arrival Date: 02/26/2023 Time: 13:[address] Private MD: ED Physician Carlos Montalvo HPI: 02/26 20:56 This 77 yrs old Female presents to ER via EMS with complaints of Fall Injury, Hip rt Injury. 20:56 Patient presents to the ED following fall. She cannot recall the events surrounding the rt fall. History is somewhat limited due to confusion. The patient reports a pain to the right hip, denies other injury or other pain at this time. Symptoms are moderate severity, aching nature, nonradiating, no other aggravating or elevating factors.. Historical: - Allergies: 13:31 PENICILLINS; nj1 - PMHx: 13:31 Congestive heart failure; Hypercholesterolemia; Hypertensive disorder; nj1 - PSHx: 13:31 DASIA knee; pacemaker; nj1 - Immunization history:: Adult Immunizations unknown, Client reports receiving the 2nd dose of the Covid vaccine. - Social history:: Smoking status: Patient denies any tobacco usage or history of. - Family history:: not pertinent. ROS: 20:56 Unable to obtain ROS due to altered mental status. rt Exam: 16:53 ECG was reviewed by the Attending Physician. rt 20:56 Constitutional: This is a well developed, well nourished patient who is awake, alert, rt and in no acute distress. Head/Face: Normocephalic, atraumatic. Chest/axilla: Normal chest wall appearance and motion. Nontender with no deformity. No lesions are appreciated. Cardiovascular: Regular rate and rhythm with a normal S1 and S2. No gallops, murmurs, or rubs. Normal PMI, no JVD. No pulse deficits. Respiratory: Lungs have equal breath sounds bilaterally, clear to auscultation and percussion. No rales, rhonchi or wheezes noted. No increased work of breathing, no retractions or nasal flaring. Abdomen/GI: Soft, non-tender, with normal bowel sounds. No distension or tympany. No guarding or rebound. No evidence of tenderness throughout. 20:56 Musculoskeletal/extremity: Cellulitic changes to the right lower extremity with ulceration on the anterior aspect. Pulses, motor, sensation are intact. Vital Signs: 13:15 BP 92 / 53; Pulse 114; Resp 36 S; Temp 98.8(O); Pulse Ox 100% on 2 lpm NC; Weight 68.04 db kg; Height 5 ft. 5 in. ; Pain 10/10; 13:43 BP 97 / 82; Pulse 105; Resp 30; Pulse Ox 100% on R/A; nj1 14:45 BP 104 / 90; Pulse 106; Resp 24; Pulse Ox 98% on R/A; ss 15:54 BP 104 / 86; Pulse 107; Resp 24; Pulse Ox 97% ; ss 16:40 BP 103 / 76; Pulse 107; Resp 30; Pulse Ox 98% on R/A; ss 17:30 BP 96 / 77; Pulse 94; Resp 28; Pulse Ox 97% on R/A; ss 18:29 BP 104 / 70; Pulse 99; Resp 30; Pulse Ox 100% ; nj1 19:24 BP 108 / 66; Pulse 89; Resp 28; Pulse Ox 97% ; nj1 13:15 Body Mass Index 24.96 (68.04 kg, 165.1 cm) db 13:15 Pain Scale: Adult db MDM: 13:26 Patient medically screened. rt 20:56 Differential diagnosis: Fracture, sepsis, A-fib with RVR, cellulitis. Data reviewed: rt vital signs, nurses notes. Consideration of Admission/Observation Patient was admitted/placed on observation. Management of patient was discussed with the following: Hospitalist: Agrees to admit. Independent interpretation of the following test(s) in the Emergency Department CT Scan: My interpretation is No pelvic fracture seen on interpretation of the CT scan images. Care significantly affected by the following chronic conditions: Congestive Heart Failure. Counseling: I had a detailed discussion with the patient and/or guardian regarding: the historical points, exam findings, and any diagnostic results supporting the discharge/admit diagnosis, lab results, radiology results, the need for further work-up and treatment in the hospital. Response to treatment: the patient's symptoms have markedly improved after treatment. ED course: Patient meeting sepsis criteria with evidence of septic shock as evidenced by elevated lactate. Otherwise hemodynamically stable. Patient with known history of congestive heart failure, suspect that she is somewhat volume overloaded. I believe that 30 cc/kg bolus is more likely to harm the patient and do benefit. We will stop volume resuscitation at 1 L.. 02/26 13:26 Order name: Blood Culture Adult (2) rt 02/26 13:26 Order name: CBC with Diff; Complete Time: 15:02 rt 02/26 13:26 Order name: CMP; Complete Time: 15:02 rt 02/26 13:26 Order name: Lactate w/ 2H reflex if indic.; Complete Time: 14:25 rt 02/26 13:26 Order name: Protime (+inr); Complete Time: 14:01 rt 02/26 13:26 Order name: Ptt, Activated; Complete Time: 14:01 rt 02/26 13:26 Order name: Urinalysis w/ reflexes rt 02/26 13:26 Order name: CPK; Complete Time: 15:02 rt 02/26 13:26 Order name: Troponin High Sensitivity; Complete Time: 15:02 rt 02/26 13:26 Order name: BNP; Complete Time: 15:02 rt 02/26 14:01 Order name: CBC Smear Scan; Complete Time: 15:02 EDMS 02/26 18:15 Order name: Magnesium EDMS 02/26 18:15 Order name: Phosphorus EDMS 02/26 18:15 Order name: T4 Free EDMS 02/26 18:15 Order name: Thyroid Stimulating Hormone EDMS 02/26 18:15 Order name: Urinalysis w/ reflexes EDMS 02/26 18:15 Order name: Basic Metabolic Panel EDMS 02/26 18:15 Order name: Basic Metabolic Panel EDMS 02/26 18:15 Order name: CBC with Automated Diff EDMS 02/26 18:15 Order name: CBC with Automated Diff EDMS 02/26 19:05 Order name: Lactate Sepsis 2 HR Follow-up EDMS 02/26 13:26 Order name: Chest Single View XRAY; Complete Time: 15:51 rt 02/26 13:26 Order name: CT Head C Spine; Complete Time: 15:02 rt 02/26 13:26 Order name: CT Lumbar Spine Wo Con; Complete Time: 15:02 rt 02/26 13:26 Order name: CT Pelvis wo Cont; Complete Time: 15:02 rt 02/26 13:26 Order name: EKG; Complete Time: 13:27 rt 02/26 18:15 Order name: CONS Physician Consult EDMS 02/26 18:15 Order name: CONS [facility] Cons EDLA 02/26 13:26 Order name: Cardiac monitoring; Complete Time: 13:42 rt 02/26 13:26 Order name: EKG - Nurse/Tech; Complete Time: 13:55 rt 02/26 13:26 Order name: IV Saline Lock - Large Bore; Complete Time: 13:43 rt 02/26 13:26 Order name: Labs collected and sent; Complete Time: 13:43 rt 02/26 13:26 Order name: O2 Per Protocol; Complete Time: 13:43 rt 02/26 13:26 Order name: O2 Sat Monitoring; Complete Time: 13:43 rt 02/26 13:26 Order name: Vital Signs; Complete Time: 13:43 rt EC:53 Rate is 113 beats/min. Rhythm is irregularly irregular, A fib with Occasional PVCs. rt Left axis deviation noted. QRS interval is normal. QT interval is normal. No Q waves. Administered Medications: 14:23 Drug: Cefepime IVPB 2 grams Route: IVPB; Rate: 200 ml/hr; Infused Over: 30 mins; Site: ss right antecubital; 15:38 Follow up: Response: No adverse reaction; IV Status: Completed infusion; IV Intake: 50mlss 14:43 Drug: NS 0.9% IV 1000 ml Route: IV; Rate: 1 bolus; Site: right antecubital; ss 15:33 Drug: fentaNYL (PF) IVP 50 mcg Route: IVP; Site: right antecubital; ss 16:00 Follow up: Response: No adverse reaction ss 16:40 Drug: Diltiazem IVP 10 mg Route: IVP; Site: right antecubital; Disposition Summary: 02/26/23 17:54 Hospitalization Ordered Hospitalization Status: Inpatient Admission rt Provider: Mikael Funes rt Location: Telemetry/MedSur (Inpatient) rt Condition: Fair rt Problem: new rt Symptoms: have improved rt Bed/Room Type: Standard rt Room Assignment: 213(02/26/23 18:42) bd Diagnosis - Severe sepsis with septic shock rt - Cellulitis to the right lower extremity rt - Syncope rt - Atrial fibrillation with rapid ventricular rate rt Forms: - Medication Reconciliation Form rt - SBAR form rt Critical care time excluding procedures: 20:56 Critical care time: Bedside Care: 30 minutes, Consultation: 10 minutes. Total time: 40 rt minutes Signatures: Dispatcher [employer] Sharita Sherwood Shelby, RN RN ss Carlos Montalvo MD MD rt Cherise Richardson RN RN nj1 Corrections: (The following items were deleted from the chart) 18:42 17:54 rt bd
[2023-02-26] MEDS ORDERED: ONDANSETRON 4 MG/2 ML VIAL IV PRN (18:13)
--- NOTE | 2023-02-26 18:29 | P.HP ---
Certification for Inpatient Patient admitted to: Inpatient With expected LOS: >2 Midnights Patient will require the following post-hospital care: None Practitioner: I am a practitioner with admitting privileges, knowledge of patient current condition, hospital course, and medical plan of care. Services: Services provided to patient in accordance with Admission requirements found in Title 42 Section 412.3 of the Code of Federal Regulations Patient History Date of Service: 02/26/23 Reason for admission: Syncope, A-fib with RVR, for History of Present Illness: Patient is a 77-year-old female with a past medical history significant for CHF, HLD, hypertension, insomnia who presents with complaint of syncope Patient is alert and oriented x2. Patient is a poor historian and unable to provide accurate history. Patient reported that she passed out this morning and unable to remember how long she was on the floor. Patient reported that she has some weakness in her lower extremities. Patient was found on the floor by the plasterer maintenance in her apartment complex. No other signs and symptoms reported. Symptoms are aggravated or relieved by nothing. Patient noted with bilateral lower extremity swelling/redness/wounds as well as mild redness in abdominal folds. Patient was brought to the hospital for medical evaluation. Allergies sulfamethoxazole [From Bactrim] Allergy (Verified 12/17/22 22:26) Itching trimethoprim [From Bactrim] Allergy (Verified 12/17/22 22:26) Itching Penicillins Adverse Reaction (Verified 12/17/22 22:26) swelling Home Medications: Cholecalciferol (Vitamin D3) [Vitamin D 1000 Iu Tab*] 1,000 unit PO TID 11/17/19 Ascorbic Acid [Vitamin C*] 500 mg PO DAILY 12/11/22 Atorvastatin Calcium [Lipitor*] 20 mg PO DAILY 12/11/22 Cider Vinegar [Apple Cider Vinegar] 500 mg PO DAILY 12/11/22 Glucos Sul 2Kcl/MSM/Chond/C/Mn [Glucosamine Chondroitin Cap] 1 cap PO DAILY 12/11/22 Melatonin [Melatonin*] 3 mg PO BEDTIME 12/11/22 carvediloL [Carvedilol] 3.125 mg PO DAILY 12/11/22 Albuterol Neb [Proventil 0.083% Neb Soln] 2.5 mg NEB [id number] PRN #60 amp 12/27/22 Apixaban [Eliquis] 5 mg PO BID #60 tab 12/27/22 Carvedilol [Coreg] 3.125 mg PO BID #60 tab 12/27/22 Digoxin 125 mcg PO DAILY #30 tab 12/27/22 Ensure Enlive 237 ml PO BID #60 can 12/27/22 Furosemide [Lasix] 20 mg PO BIDL #60 tab 12/27/22 Ipratropium Neb [Atrovent*] 0.5 mg NEB [id number] PRN #60 amp 12/27/22 Medihoney [Medihoney Woundcare Gel*] 1 appl TOP DAILY #1 tube 12/27/22 Melatonin 10 mg PO BEDTIME PRN PRN #20 tab 12/27/22 carvediloL [Coreg*] 3.125 mg PO BID #60 tab 12/27/22 clindamycin HCL [Clindamycin HCl] 300 mg PO Q8H #21 cap 12/27/22 levoFLOXacin [Levaquin*] 750 mg PO DAILY #7 tab 12/27/22 - Past Medical/Surgical History Diabetic: No -: hypertension -: CHF severe global hypokinesis -: HLD -: HTN -: joint replacement -: R Knee sx - Social History Smoking Status: Never smoker Alcohol use: Yes CD- Drugs: No Caffeine use: Yes Place of Residence: Home Review of Systems General: Weakness Eyes: Unremarkable ENT: Unremarkable Respiratory: Unremarkable Cardiovascular: Unremarkable Gastrointestinal: Unremarkable Genitourinary: Unremarkable Musculoskeletal: Pedal edema, Other (Bilateral lower extremity swelling) Integumentary: Other (Bilateral lower extremity redness.) Neurological: Weakness Lymphatics: Unremarkable Physical Examination - Physical Exam General: Alert, In no apparent distress, Oriented x2, Cooperative HEENT: Atraumatic, PERRLA, Mucous membr. moist/pink, EOMI, Sclerae nonicteric Neck: Supple, 2+ carotid pulse no bruit, No LAD, Without JVD or thyroid abnormality Respiratory: Diminished Cardiovascular: Normal S1 S2, Edema, Irregular heart rate/rhythm Capillary refill: <2 Seconds Gastrointestinal: Normal bowel sounds, Non-distended, No tenderness Musculoskeletal: Erythema Integumentary: No rashes, Skin breakdown, Tenderness/swelling, Erythema, Warmth Neurological: Normal speech, Normal tone, Normal affect Lymphatics: No axilla or inguinal lymphadenopathy - Studies Laboratory Data (last 24 hrs) 02/26/23 13:38: WBC 16.30 H, Hgb 12.7, Hct 41.3, Plt Count 163 02/26/23 13:35: PT 16.7 H, INR 1.52, APTT 26.8 02/26/23 13:35: Sodium 142, Potassium 3.8, BUN 36 H, Creatinine 1.56 H, Glucose 165 H, Total Bilirubin 2.1 H, AST 42 H, ALT 32, Alkaline Phosphatase 159 H Assessment and Plan - Plan --A-fib with RVR. Patient given diltiazem in the ER. Continue Eliquis. Cardiology consulted. Telemetry to monitor for any malignant arrhythmia. We will await further recommendation from carbon blocks press operator. --Syncope. Likely secondary to arrhythmia versus bilateral lower extremity weakness VS CVA. CT head indicates Left parieto-occipital region of hypoattenuation, suggestive of a subacute infarct. Neurologist consulted. We will get some orthostatic blood pressure. Carotid Doppler pending to rule out any carotid artery stenosis. Fall precautions. Continue supportive care. --Severe sepsis with septic shock. Likely secondary to cellulitis. Blood cultures pending. Continue antibiotics. -- Bilateral lower extremities cellulitis\wound\wound. Continue antibiotics. Blood cultures pending. Wound consult initiated. Will await further recommendations. --Suspected pneumonia. Chest x-ray indicates Stable right basal opacification . CT chest pending for further evaluation. Continue nebulizer treatment with albuterol\Atrovent. Continue O2 therapy. --Acute on chronic systolic CHF exacerbation. Continue diuresis with Lasix. Daily weight and strict I/O. Cardiology on board. We will await further recommendation. --Hx of DVT continue Eliquis. --Leukocytosis. Blood cultures pending. Continue antibiotics. --Hypertension. Stable. Continue home medications --Hyperlipidemia. Continue statin. --Insomnia. Continue home medication. -- DVT prophylaxis with Eliquis. Discharge Plan: Home Plan to discharge in: Greater than 2 days - Advance Directives Does patient have a Living Will: Yes Does patient have a Durable POA for Healthcare: No - Code Status/Comfort Care Code Status Assessed: Yes Physician Review: Patient Assessed, Agree with Above Assessment and Plan Critical Care: No
[2023-02-26] MEDS ORDERED: VANCOMYCIN 1.75 GM in NA CHLORIDE 0.9% 500 ML IVPB ONE (19:00)
[2023-02-26] MEDS: IPRATROPIUM BROM 0.5MG/2.5ML NEB SCH (20:00)
[2023-02-26] MEDS: ALBUTEROL 2.5 MG/3 ML NEB SOL NEB SCH (20:00)
[2023-02-26 21:08] LABS: Phosphorus 3.3 mg/dL (2.5-4.9); Thyroid Stimulating Hormone 1.84 uIU/mL (0.358-3.740)
--- NOTE | 2023-02-26 21:09 | RAD REPORT ---
EXAM DESCRIPTION: CT - Thorax Wo Con - 02/26/2023 8:36 pm CLINICAL HISTORY: R O PNA COMPARISON: Chest Abd Pelvis Wo Con dated 12/17/2022; Chest Single View dated 02/26/2023 TECHNIQUE: Axial thin cut images of the chest were obtained without IV contrast. Multiplanar reforma ts were generated and reviewed. All CT scans are performed using dose optimization technique as appropriate and may include automated exposure control or mA/KV adjustment according to patient size. FINDINGS: Partial improvement of aeration in the right lung base. Elevation of the right hemidiaphra gm. New rounded pleural-based opacity in the peripheral basal left lower lobe, see image 32 axial ser ies 201. Mild background central interstitial prominence. No pleural thickening. Small layering pleur al effusions. . No pneumothorax. Pronounced cardiomegaly with mild to moderate pericardial effusion. Left chest wall pacer/ AICD in pl cortney. Prominent caliber of the main pulmonary artery, which may relate to pulmonary hypertension. No a bnormal mediastinal or hilar masses or lymphadenopathy seen. No significant aortic or pulmonary arter y findings. Assessment is limited in the absence of IV contrast. No chest wall mass or abnormal axillary lymphadenopathy. Evaluation of the solid abdominal structures reveals no suspicious findings. IMPRESSION: Pronounced cardiomegaly, mild central interstitial prominence, and prominent main pulmon lane artery caliber, findings which suggest a degree of congestive heart failure, possibly with portal hypertension. Please correlate clinically. New rounded pleural-based opacity in the peripheral basal left lower lobe, could relate to atelectasi s or early airspace disease. Improving aeration in the right lung base with probable residual atelect asis. Small bilateral pleural effusions are noted.
[2023-02-26 21:44] VITALS: BMI 25.2
[2023-02-26] MEDS: APIXABAN 5 MG TABLET PO SCH (22:18)
[2023-02-27] MEDS: IPRATROPIUM BROM 0.5MG/2.5ML NEB SCH ×4 (02:30→20:35)
[2023-02-27] MEDS: ALBUTEROL 2.5 MG/3 ML NEB SOL NEB SCH ×4 (02:30→20:35)
[2023-02-27 03:39] LABS: Hematocrit 32.7 % (36.0-45.0); Lymphocytes % 9.8 % (15.3-44.8); MCV 89.1 fL (80-100); MPV 10.5 fL (7.6-11.3); RBC Red Blood Cell Count 3.67 M/uL (3.86-4.86)
[2023-02-27 04:00] LABS: Potassium 3.3 mEq/L (3.5-5.1)
--- NOTE | 2023-02-27 08:43 | P.CNS ---
Date of Consult: 02/27/23 Reason for Consult: Gram-negative bacteremia Chief Complaint: Syncope, A-fib with RVR, for History of Present Illness: Patient is a 77 yo female with a history of CHF, hypertension and HLD who presented to the ED following a syncopal episode. It is unknown how long she was on the floor prior to being found by the apartment's maintenance groundman. She was noted to have bilateral lower extremity swelling and erythema. Workup in ED revealing lactic acid 4.9, BUN 36, Cr 1.56, ProBNP 10577, WBC 16.3. ID consulted for gram negative bacteremia. Allergies sulfamethoxazole [From Bactrim] Allergy (Verified 02/26/23 21:43) Itching trimethoprim [From Bactrim] Allergy (Verified 02/26/23 21:43) Itching Penicillins Adverse Reaction (Verified 02/26/23 21:43) swelling Home medications list reviewed: Yes - Past Medical/Surgical History Diabetic: No -: hypertension -: CHF severe global hypokinesis -: HLD -: HTN -: joint replacement -: R Knee sx - Social History Alcohol use: Yes CD- Drugs: No Caffeine use: Yes Place of Residence: Home Review of Systems 10-point ROS is otherwise unremarkable General: Chills Physical Examination Temp Pulse Resp BP Pulse Ox 96.5 F L 83 18 110/73 99 02/27/23 08:00 02/27/23 08:00 02/27/23 08:00 02/27/23 08:00 02/27/23 08:00 General: Alert, In no apparent distress, Oriented x2 HEENT: Atraumatic, Normocephalic Neck: Supple, JVD not distended Respiratory: Normal air movement Cardiovascular: No edema, Normal pulses Gastrointestinal: Normal bowel sounds, Soft and benign Musculoskeletal: No clubbing, No swelling Integumentary: Skin lesion (right lower leg fallon superficial wound ), Other (onychomycosis) Laboratory Data - Reviewed Microbiology Data - Reviewed Imagings Data: -CT Chest 02/26: "Pronounced cardiomegaly, mild central interstitial prominence, and prominent main pulmonary artery caliber, findings which suggest a degree of congestive heart failure, possibly with portal hypertension. Please correlate clinically. New rounded pleural-based opacity in the peripheral basal left lower lobe, could relate to atelectasis or early airspace disease. Improving aeration in the right lung base with probable residual atelectasis. Small bilateral pleural effusions are noted." - CT Head/Cervical Spine 02/26: "No acute traumatic intracranial or cervical spine findings. Left parieto-occipital region of hypoattenuation suggestive of a subacute infarct. Other sequelae of remote ischemia noted in the bilateral frontal regions." - CT Lumbar Spine 02/26: "No acute osseous abnormality." Medication List: Reviewed Conclusions/Impression: Problem List Hypertension Hyperlipidemia Congestive Heart Failure Atrial fibrillation with RVR Severe Sepsis Cellulitis Syncope Gram-Negative Bacteremia Severe Sepsis - Blood cultures 02/26: gram negative rods - Wound culture leg 02/26: pending - Leukocytosis improving (WBC 16.3 -> 9.9 - on 02/27) - Afebrile - Currently on Cefepime and Vancomycin (started 02/26) Recommendations - Continue current antibiotics for now. Awaiting final blood culture and sensitivity reports. Will adjust antibiotics as appropriate. - Follow up with urinalysis and wound culture reports - Monitor WBC and fever trends - Supportive care and nutritional support as needed ID will follow up and monitor patient closely. Case discussed with Marco Antonio Gomez. Thank you Shantel Prince for consult.
[2023-02-27] MEDS ORDERED: ENOXAPARIN 40 MG/0.4 ML SQ SCH (09:00)
[2023-02-27] MEDS ORDERED: POTASSIUM 25 MEQ EFFERV TAB PO ONE (09:00)
--- NOTE | 2023-02-27 09:00 | RAD REPORT ---
EXAM DESCRIPTION: USCarotid Artery Bilateral02/27/2023 1:12 am CLINICAL HISTORY: syncope COMPARISON: None FINDINGS: The velocity of the right internal carotid artery equals 57 cm/sec. The right ICA/CCA rati o 1.8 The velocity of the left internal carotid artery equals 45 cm/sec. The left ICA/CCA ratio 1 Mild plaque is present within the carotid arteries. The vertebral arteries demonstrate antegrade flow IMPRESSION: Mild plaque within the carotid arteries without evidence of a hemodynamically significan t stenosis NASCET criteria used. Mild 0-49% stenosis Moderate 50-69% stenosis Severe 70-99% stenosis
[2023-02-27] MEDS: FUROSEMIDE 40 MG/4 ML VIAL IV SCH ×2 (09:57→17:00)
[2023-02-27] MEDS: ASPIRIN 81 MG CHEWABLE TABLET PO SCH (09:58)
[2023-02-27] MEDS: APIXABAN 5 MG TABLET PO SCH ×2 (10:04→21:37)
[2023-02-27] MEDS ORDERED: CEFEPIME 2 GM in NA CHLORIDE 0.9% 100 ML IV SCH (15:00)
--- NOTE | 2023-02-27 15:34 | P.PN ---
Subjective Date of Service: 02/27/23 Chief Complaint: Syncope, A-fib with RVR, for No acute events since admission. She reports no recurrent episodes of syncope. She denies any chest pain, palpitations, or shortness of breath. Review of Systems 10-point ROS is otherwise unremarkable General: Weakness (generalized) Physical Examination - Vital Signs Temperature: 97.6 F Blood Pressure: 101/74 Pulse: 102 Respirations: 16 Pulse Ox (%): 99 - Physical Exam General: Alert, In no apparent distress, Oriented x3 HEENT: Atraumatic, Mucous membr. moist/pink, Sclerae nonicteric Neck: JVD not distended Respiratory: Clear to auscultation bilaterally, Diminished Cardiovascular: No edema, No murmurs, Irregular heart rate/rhythm Gastrointestinal: Normal bowel sounds, Soft and benign, Non-distended, No tenderness, No rebound, No guarding Musculoskeletal: No clubbing Integumentary: No rashes Neurological: Normal speech, Sensation intact, Cranial nerves 3-12 intact, Normal reflexes 2+, Normal affect, Abnormal strength (5/5 BUE, 5/5 RLE, 4/5 LLE) - Studies Microbiology Data (last 24 hrs): 02/26/23 13:35 Blood - Blood Blood Culture Gram Stain - Final 02/26/23 13:35 Blood - Blood Anaerobic Blood Culture - Final 02/26/23 13:50 Blood - Blood Blood Culture Gram Stain - Final 02/26/23 13:50 Blood - Blood Anaerobic Blood Culture - Final Assessment And Plan - Plan NIH Stroke Scale 1a. Level of consciousness: 0 - Alert; keenly responsive 1b. LOC questions: 0 - Both questions right 1c. LOC commands: 0 - Performs both tasks 2. Best Gaze: 0 - Normal 3. Visual: 0 - No visual loss 4. Facial Palsy: 0 - Normal symmetry 5a. Motor left arm: 0 - No drift for 10 seconds 5b. Motor right arm: 0 - No drift for 10 seconds 6a. Motor left le - drift, hits bed 6b. Motor right le - No drift for 5 seconds 7. Limb ataxia: 0 - No ataxia 8. Sensory: 0 - Normal; no sensory loss 9. Best Language: 0 - Normal; no aphasia 10. Dysarthria: 0 - Normal 11. Extinction and Inattention: 0 - No abnormality 12. Distal motor function: 0 - No abnormality Total Score: 2 # Suspected Septic Shock secondary to Left Lower Extremity Cellulitis with Gram- Negative Bacteremia # Stage II Sacral Pressure Ulcer - POA # Stage I Left Heel Pressure Ulcer - POA She met SIRS criteria based on HR > 90 bpm, RR > 20 breaths/min, and WBC > 12,000, and the suspected source is cellulitis. Severe sepsis is suspected due to concern for tissue hypoperfusion/organ dysfunction based on bilirubin >2 mg/dL, coagulopathy (INR > 1.5), and lactic acid > 2 mmol/L. Septic shock is suspected due to initial lactate > 4 mmol/L. - Infectious Diseases consulted and spoke with MAILS SUPERVISOR Sgarbi - recommendations appreciated - Sepsis order set was initiated - Lactate trend: 4.9 -> 3.9 - Blood cultures drawn: positive for gram-negative rods - Broad spectrum antibiotics started: vancomycin + cefepime - In regards to fluids: - 30 mL/kg of IV fluids was not administered given positive response to a lesser volume # Subacute Left Parieto-Occipital Cerebrovascular Accident # Syncope - suspect due to above # Dyslipidemia - Consulted Neurology and spoke with Dr. Gauthier - recommendations appreciated - NIHSS = 2 - q4hr neurochecks - Unable to obtain MRI given AICD - CT head/cervical spine = "no acute traumatic intracranial or cervical spine findings. Left parieto-occipital region of hypoattenuation suggestive of a subacute infarct. Other sequelae of remote ischemia noted in the bilateral frontal regions." - Carotid ultrasound = "mild plaque within the carotid arteries without evidence of a hemodynamically significant stenosis." - PT/OT evaluation requested - Ordered risk profile: - Hgb A1c = pending - Lipid panel = pending - TSH = 1.84 - Started aspirin, atorvastatin, folic acid # Paroxysmal Atrial Fibrillation with Rapid Ventricular Response # History of Deep Venous Thrombosis Her [id number] = 6 (CHF=1, HTN=1, Age>75=2, CVA=1, Sex=1), which warrants anticoagulation. 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 severe global hypokinesis 2. ejection fraction 33-35% 3. mild tricuspid regurgitation" - CT chest = "pronounced cardiomegaly, mild central interstitial prominence, and prominent main pulmonary artery caliber, findings which suggest a degree of congestive heart failure, possibly with [pulmonary] hypertension. Please correlate clinically. New rounded pleural-based opacity in the peripheral basal left lower lobe, could relate to atelectasis or early airspace disease. Improving aeration in the right lung base with probable residual atelectasis. Small bilateral pleural effusions are noted." - Diuresis with IV furosemide for today - May benefit from metoprolol and sacubutril-valsartan if blood pressure allows - Daily weights - Strict I/O - Cardiac diet, 1.5 L fluid restriction, 2 g Na restriction # Degenerative Joint Disease with Moderate L1-L4 Neural Foraminal Narrowing # Bilateral Hip Arthritis # Urolithiasis - CT lumbar spine = "no acute osseous abnormality. Multilevel degenerative changes as above. Please consider MRI follow-up for assessment of disc disease and neural involvement as clinically indicated." - CT pelvis = "no acute osseous abnormality of the bony pelvis. Degenerative changes of the PA joints worse on the right. Dependent radiodensities along the left aspect of the bladder may relate to gravel or small calculi." - Denies any alarm symptoms (i.e. no unilateral weakness, saddle anesthesia, or no urinary/bowel incontinence) - Follow-up with PCP as an outpatient Mikael Funes M.D.
[2023-02-27] MEDS ORDERED: ALBUMIN HUMAN 25% 100 ML IV ONE (16:22)
[2023-02-27] MEDS: CEFEPIME 2 GM in NA CHLORIDE 0.9% 100 ML IV SCH (17:17)
[2023-02-27] MEDS: FOLIC ACID 1 MG TABLET PO SCH (17:17)
--- NOTE | 2023-02-27 17:43 | EKG ---
Test Date: 2023-02-26 Test Time: 13:51:37 Back Filler Operator: YESSI MEASUREMENT RESULTS: Intervals: Rate: 113 VA: QRSD: 108 QT: 362 QTc: 496 [place]edey: P: VA: QRS: -21 T: 132 INTERPRETIVE STATEMENTS: Atrial fibrillation with premature ventricular or aberrantly conducted complexes Septal infarct, age undetermined Abnormal ECG Compared to ECG 12/17/2022 12:36:40 Myocardial infarct finding now present Right-axis deviation no longer present Left bundle-branch block no longer present ST (T wave) deviation no longer present Possible ischemia no longer present Electronically Signed On 02-27-23 17:39:51 CDT by Dalton Hwoe
[2023-02-27] MEDS ORDERED: METOPROLOL TAR 25 MG TAB PO SCH (18:00)
[2023-02-27] MEDS: ACETAMINOPHEN 325 MG TABLET PO PRN (18:16)
[2023-02-27] MEDS: VANCOMYCIN 750 MG in NA CHLORIDE 0.9% 150 ML IVPB SCH (19:38)
[2023-02-27] MEDS ORDERED: AMIODARONE HCL 150 MG in D5W 100 ML IV STA (19:45)
[2023-02-27] MEDS ORDERED: AMIODARONE HCL 900 MG in Dextrose 5%-Water 482 ML IV SCH (20:00)
[2023-02-27] MEDS ORDERED: AMIODARONE IN DEXTROSE,ISO-OSM 360 MG/200 ML BAG IV ONE (20:24)
[2023-02-27] MEDS: GABAPENTIN 100 MG CAP PO SCH (21:37)
[2023-02-27] MEDS: ATORVASTATIN 40 MG TAB PO SCH (21:37)
[2023-02-27] MEDS: AMIODARONE HCL 450 MG in D5W 241 ML IV SCH (22:10)
--- NOTE | 2023-02-27 23:46 | CON ---
Reason For Consultation: Consultation called because of syncope. History Of Present Illness: Ms. León is a 77-year-old patient with dyslipidemia, hypertension, rep orted atrial fibrillation with rapid ventricular response, and congestive heart failure who was found by a utilities and maintenance supervisor in her apartment on the floor. The patient did say she did not pass out ; however, review of the notes from the hospitalist indicated that she did mention that she passed ou t, but was unable to remember any details of how it went and how long she was on the floor. Her head CT scan has suggested a subacute infarct in the left parietoccipital region where there is hypoatten uation. There is encephalomalacia in the right operculum and left anterior front cortex suggestive o f remote infarct and patchy deep white matter hypoattenuation suggestive of chronic small vessel isch emic disease. Her cervical spine did show severe disc height loss at mostly C5-6 and C6-7. However, there is no significant neural foraminal or central canal stenosis. Blood work did reveal an elevat ed white blood cell count of 16.3 with neutrophils of 91.5, consistent with a systemic infection. Al so her lactic acid was elevated to 4.9 and creatinine elevated to 1.56, consistent with dehydration. She had slightly elevated liver function with AST of 42. Thyroid function with free T4 slightly colton vated to 1.52. Urinalysis is pending. She has cultures of blood and urine pending. She did receive antibiotics including cefepime 2 g for potential systemic infection along with Lipitor, aspirin, and Eliquis for stroke risk reduction. Past Medical History: As noted. Allergies: SULFAMETHOXAZOLE, TRIMETHOPRIM, AND PENICILLIN. Medications: At home are vitamin D 1000 units 3 times daily, vitamin C 500 mg daily, Lipitor 20 mg a t bedtime, apple cider vinegar 500 mg daily, melatonin 3 at bedtime, carvedilol 3.125 mg daily, albut brenda nebulizer every 6 hours as needed, Eliquis 5 mg twice daily, Coreg 3.125 mg twice daily, digoxin 125 mcg daily, Ensure Enlive 237 mL twice daily, Lasix 20 mg twice daily, and levofloxacin 750 mg da malissa, which she completed. Past Surgical History: Right knee surgery and joint replacement. Social History: Denies alcohol use. Occasional tobacco use. She resides in her own residence. Review of Systems: As noted diffuse weakness, swelling in the lower extremities, some confusion, and some problems with increased somnolence. Otherwise, no gastrointestinal issues. No significant dermatological issues e xcept for redness noted in the lower extremities and areas of skin breakdown on the heels. No genito urinary issues; however, she does appear to have urinary tract infection, but urinalysis is still pen ding. Physical Examination: Vital Signs: Blood pressure ranged from 90 to 107/56 to 84, pulse ranged from 100 to 112, temperatur e 97.7, respiratory rate 16 to 20, and oxygen saturation 98% on room air. General: Ms. León is resting in bed. She was asleep with time, but was aroused and did follow all commands appropriately. HEENT: She appeared, despite the fall to be normocephalic, atraumatic. She did say at the right denise k of her head, there is mild sore spot that was palpated and no significant area of swelling noted. Neurologic: Her cranial nerves show no focal deficits. She had a good smile with symmetry. On lukasz r examination, good movement in both upper and lower extremities. Stocking-glove loss to light touch and temperature. Depressed reflexes. Laboratory Data: Most recent white blood cell count down to 9.9, after it was 16.3 yesterday and todd telets 104 and the rest of the labs have been reviewed and as mentioned, her potassium has now normal ized at 4.2, it was earlier 3.3. Today creatinine 1.41, down from 1.56. Carotid artery ultrasound s hows mild plaque in the carotid arteries without evidence of hemodynamically significant stenosis. L umbar spine CT scan shows no acute osseous abnormalities. There is multilevel degenerative disk dise ase with moderate neuroforaminal narrowing at L1-2, L2-3, and L3-4. The patient does have pacemaker and is unable to get MRI. Assessment: Ms. León is a 77-year-old patient who had a syncopal episode of unclear etiology. She does have atrial fibrillation with rapid ventricular response. She is managed by the Cardiology Ser vice. The CT scan suggests possibility of a subacute stroke, but that cannot be confirmed by MRI. A n interval CT scan may be helpful. The possibility of a seizure is there, but the EEG machine in the hospital is nonfunctional. She may require monitoring for event characterization. Plan: Continue anticoagulation with Eliquis 5 mg twice daily for stroke and DVT risk reduction. Rat e management done with amiodarone. She does have likely a systemic infection and she is on cefepime. Continue aspirin at least for the next perhaps a week, but may again consider only using Eliquis as a combination given her risk of falling, could likely result in catastrophic intracranial bleeding. After her discharge, she may follow up in Dr. Gauthier's clinic for EEG and ambulatory monitoring if required. At this point, we will not suggest starting antiepileptic medication. JL/KASIA Voice ID: [id number] Report ID: [id number]
[2023-02-28] MEDS: ACETAMINOPHEN 325 MG TABLET PO PRN ×4 (00:15→19:29)
[2023-02-28] MEDS: IPRATROPIUM BROM 0.5MG/2.5ML NEB SCH ×4 (01:40→19:30)
[2023-02-28] MEDS: ALBUTEROL 2.5 MG/3 ML NEB SOL NEB SCH ×4 (01:40→19:30)
[2023-02-28 03:20] LABS: Protime INR 3.24
[2023-02-28 03:28] LABS: Absolute Lymphocytes (CBC) 0.9 K/uL (0.7-4.9); Hematocrit 30.7 % (36.0-45.0); Lymphocytes % 13.6 % (15.3-44.8); MCV 88.1 fL (80-100); MPV 10.5 fL (7.6-11.3); RBC Red Blood Cell Count 3.49 M/uL (3.86-4.86)
[2023-02-28 03:34] LABS: Phosphorus 2.7 mg/dL (2.5-4.9)
[2023-02-28 03:41] LABS: Albumin 2.4 g/dL (3.4-5.0); Bilirubin Direct 0.5 mg/dL (0-0.2); Bilirubin Total 1.1 mg/dL (0.2-1.0); Potassium 3.7 mEq/L (3.5-5.1); Protein, Total 5.3 g/dL (6.4-8.2)
[2023-02-28] MEDS: CEFEPIME 2 GM in NA CHLORIDE 0.9% 100 ML IV SCH ×2 (04:00→16:32)
[2023-02-28] MEDS: AMIODARONE HCL 450 MG in D5W 241 ML IV SCH (04:42)
[2023-02-28] MEDS ORDERED: AMIODARONE IN DEXTROSE,ISO-OSM 360 MG/200 ML BAG IV ONE (04:47)
[2023-02-28] MEDS: BENZONATATE 100 MG CAP PO PRN (05:43)
[2023-02-28] MEDS ORDERED: AMIODARONE HCL 900 MG in Dextrose 5%-Water 482 ML IV SCH (08:00)
[2023-02-28] MEDS ORDERED: POTASSIUM CL SA 10 MEQ TAB PO ONE (09:00)
[2023-02-28] MEDS: FUROSEMIDE 40 MG/4 ML VIAL IV SCH (09:00)
[2023-02-28] MEDS ORDERED: FUROSEMIDE 20 MG/ 2ML VIAL IV SCH (09:00)
--- NOTE | 2023-02-28 09:07 | P.PN ---
Date of Service: 02/28/23 Chief Complaint: Syncope, A-fib with RVR, for Subjective: Improving. Patient seen and examined at bedside, A&Ox2. Family/friend at bedside. Reports right shoulder pain. On amiodarone drip. No acute events reported overnight. Physical Examination Temp Pulse Resp BP Pulse Ox 98.2 F 93 H 14 82/52 L 98 02/28/23 08:00 02/28/23 08:00 02/28/23 08:00 02/28/23 08:00 02/28/23 08:00 General: Alert, In no apparent distress, Oriented x2 HEENT: Atraumatic, Normocephalic Neck: Supple, JVD not distended Respiratory: Normal air movement. On intermittent nasal cannula 1-2LPM. Cardiovascular: No edema,irregular rhythm. Gastrointestinal: Normal bowel sounds, Soft and benign Musculoskeletal: No clubbing, No swelling Integumentary: Skin lesion on right lower leg fallon (superficial) Onychomycosis Laboratory Data - Reviewed Microbiology Data - Reviewed Imagings Data: -CT Chest 02/26: "Pronounced cardiomegaly, mild central interstitial prominence, and prominent main pulmonary artery caliber, findings which suggest a degree of congestive heart failure, possibly with portal hypertension. Please correlate clinically. New rounded pleural-based opacity in the peripheral basal left lower lobe, could relate to atelectasis or early airspace disease. Improving aeration in the right lung base with probable residual atelectasis. Small bilateral pleural effusions are noted." - CT Head/Cervical Spine 02/26: "No acute traumatic intracranial or cervical spine findings. Left parieto-occipital region of hypoattenuation suggestive of a subacute infarct. Other sequelae of remote ischemia noted in the bilateral frontal regions." - CT Lumbar Spine 02/26: "No acute osseous abnormality." Medication List: Reviewed Assessment and Plan Problem List Hypertension Hyperlipidemia Congestive Heart Failure Atrial fibrillation with RVR Severe Sepsis Cellulitis Syncope Gram-Negative Bacteremia Severe Sepsis - Blood cultures 02/26: gram negative rods - Wound culture leg 02/26: mixed armand - Leukocytosis resolved (WBC 7) - Afebrile - Currently on Cefepime and Vancomycin (started 02/26) Recommendations - Continue current antibiotics for now. Awaiting final blood culture and sensitivity reports. Will adjust antibiotics as appropriate. Patient will requi re 2 weeks of antibiotics following negative blood culture. - Follow up with urinalysis, pending. - Monitor WBC and fever trends - Supportive care and nutritional support as needed ID will follow up and monitor patient closely. Case discussed with Prasad Gomez
[2023-02-28] MEDS: APIXABAN 5 MG TABLET PO SCH ×2 (09:54→20:45)
[2023-02-28] MEDS: FOLIC ACID 1 MG TABLET PO SCH (09:54)
[2023-02-28] MEDS: ASPIRIN 81 MG CHEWABLE TABLET PO SCH (09:54)
[2023-02-28] MEDS: GABAPENTIN 100 MG CAP PO SCH ×2 (09:54→20:45)
[2023-02-28] MEDS: Mupirocin NASAL 2 APPL/1 GM TUBE NAS SCH ×2 (09:54→20:45)
[2023-02-28] MEDS ORDERED: ALBUMIN HUMAN 25% 100 ML IV ONE (10:22)
--- NOTE | 2023-02-28 10:54 | RAD REPORT ---
EXAM DESCRIPTION: JOAQUIMChest Single View02/28/2023 10:22 am CLINICAL HISTORY: Picc line placement COMPARISON: Chest Single View dated 02/26/2023; Chest Single View dated 12/26/2022; Chest Single View dated 12/22/2022; Chest Single View dated 12/19/2022 TECHNIQUE: Portable AP view of the chest. FINDINGS: Right arm PICC with tip projecting over the distal right atrium, consider retracting the c atheter by 4-5 centimeter. Stable right basilar airspace opacification, with possible subpulmonic eff usion. No pneumothorax or other effusion. Stable cardiomegaly. Mediastinal contours are unchanged. IMPRESSION: Right arm PICC as above. Otherwise stable findings.
--- NOTE | 2023-02-28 11:52 | RAD REPORT ---
EXAM DESCRIPTION: RADChest Single View02/28/2023 11:08 am CLINICAL HISTORY: PICC line placment COMPARISON: Chest Single View dated 02/28/2023; Chest Single View dated 02/26/2023; Chest Single View dated 12/26/2022; Chest Single View dated 12/22/2022; Thorax Wo Con dated 02/26/2023 TECHNIQUE: Portable AP view of the chest. FINDINGS: PICC line has been retracted, its tip now projects over the superior cavoatrial junction. Stable cardiomegaly and right basilar opacification. No pneumothorax or effusion. The mediastinal co ntours are unremarkable. IMPRESSION: Interval retraction of the right arm PICC as above.
[2023-02-28 16:40] LABS: Specific Gravity 1.022 (1.005-1.030); Urine Bacteria <20 /HPF (<20); Urine Bilirubin NEGATIVE (Negative); Urine Blood Negative (Negative); Urine Clarity Extremely Turbid (Clear); Urine Color Yellow (Yellow); Urine Glucose NEGATIVE (Negative); Urine Mucus Slight /HPF (None Seen); Urine Protein 1+ (Negative); Urine Urobilinogen Normal (Normal); Urine WBC Clump Rare /HPF (None Seen); Urine pH 5.5 (5.0-7.0)
--- NOTE | 2023-02-28 17:31 | P.PN ---
Subjective Date of Service: 02/28/23 Chief Complaint: Syncope, A-fib with RVR, for She has had intermittent episodes of asymptomatic hypotension. Her blood pressure appears to respond well to albumin. She remains in atrial fibrillation, but her rate is fairly controlled. She was started on amiodarone drip overnight per Dr. Howe. She is having a PICC line placed this morning in anticipation for IV antibiotics at discharge. She denies any chest pain, palpitations, or shortness of breath. Review of Systems 10-point ROS is otherwise unremarkable General: Weakness (generalized) Physical Examination - Vital Signs Temperature: 97.4 F Blood Pressure: 102/51 Pulse: 100 Respirations: 14 Pulse Ox (%): 100 - Studies Microbiology Data (last 24 hrs): 02/26/23 13:50 Blood - Blood Blood Culture Gram Stain - Final 02/26/23 13:50 Blood - Blood Anaerobic Blood Culture - Final 02/26/23 13:35 Blood - Blood Blood Culture Gram Stain - Final 02/26/23 13:35 Blood - Blood Anaerobic Blood Culture - Final Assessment And Plan - Plan - Physical Exam General: Alert, In no apparent distress, Oriented x3 HEENT: Atraumatic, Mucous membr. moist/pink, Sclerae nonicteric Neck: JVD not distended Respiratory: Clear to auscultation bilaterally, Diminished Cardiovascular: No edema, No murmurs, Irregular heart rate/rhythm Gastrointestinal: Normal bowel sounds, Soft, Non-distended, No tenderness Musculoskeletal: No clubbing Integumentary: No rashes Neurological: Normal speech, Sensation intact, Cranial nerves 3-12 intact, Normal reflexes 2+, Normal affect, Abnormal strength (5/5 BUE, 5/5 RLE, 4/5 LLE) NIH Stroke Scale 1a. Level of consciousness: 0 - Alert; keenly responsive 1b. LOC questions: 0 - Both questions right 1c. LOC commands: 0 - Performs both tasks 2. Best Gaze: 0 - Normal 3. Visual: 0 - No visual loss 4. Facial Palsy: 0 - Normal symmetry 5a. Motor left arm: 0 - No drift for 10 seconds 5b. Motor right arm: 0 - No drift for 10 seconds 6a. Motor left le - drift, hits bed 6b. Motor right le - No drift for 5 seconds 7. Limb ataxia: 0 - No ataxia 8. Sensory: 0 - Normal; no sensory loss 9. Best Language: 0 - Normal; no aphasia 10. Dysarthria: 0 - Normal 11. Extinction and Inattention: 0 - No abnormality 12. Distal motor function: 0 - No abnormality Total Score: 2 # Suspected Septic Shock secondary to Left Lower Extremity Cellulitis with Gram- Negative Bacteremia # Stage II Sacral Pressure Ulcer - POA # Stage I Left Heel Pressure Ulcer - POA She met SIRS criteria based on HR > 90 bpm, RR > 20 breaths/min, and WBC > 12,000, and the suspected source is cellulitis. Severe sepsis is suspected due to concern for tissue hypoperfusion/organ dysfunction based on bilirubin >2 mg/dL, coagulopathy (INR > 1.5), and lactic acid > 2 mmol/L. Septic shock is suspected due to initial lactate > 4 mmol/L. - Infectious Diseases consulted and spoke with [employer]ONE[employer] Adonay - recommendations appreciated - Sepsis order set was initiated - Lactate trend: 4.9 -> 3.9 - Blood cultures drawn: positive for gram-negative rods - Broad spectrum antibiotics started: vancomycin + cefepime - In regards to fluids: - 30 mL/kg of IV fluids was not administered given positive response to a lesser volume # Subacute Left Parieto-Occipital Cerebrovascular Accident # Syncope - suspect due to above # Dyslipidemia - Consulted Neurology and spoke with Dr. Gauthier - recommendations appreciated - NIHSS = 2 - q4hr neurochecks - Unable to obtain MRI given AICD - CT head/cervical spine = "no acute traumatic intracranial or cervical spine findings. Left parieto-occipital region of hypoattenuation suggestive of a subacute infarct. Other sequelae of remote ischemia noted in the bilateral frontal regions." - Carotid ultrasound = "mild plaque within the carotid arteries without evidence of a hemodynamically significant stenosis." - PT/OT evaluation requested - Ordered risk profile: - Hgb A1c = 5.9 % - Lipid panel = TC 83, LDL 45, HDL 20, TG 91 - TSH = 1.84 - Started aspirin, atorvastatin, folic acid # Paroxysmal Atrial Fibrillation with Rapid Ventricular Response # History of Deep Venous Thrombosis Her [id number] = 6 (CHF=1, HTN=1, Age>75=2, CVA=1, Sex=1), which warrants anticoagulation. - Cardiology consulted and spoke with Dr. 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 severe global hypokinesis 2. ejection fraction 33-35% 3. mild tricuspid regurgitation" - CT chest = "pronounced cardiomegaly, mild central interstitial prominence, and prominent main pulmonary artery caliber, findings which suggest a degree of congestive heart failure, possibly with [pulmonary] hypertension. Please correlate clinically. New rounded pleural-based opacity in the peripheral basal left lower lobe, could relate to atelectasis or early airspace disease. Improving aeration in the right lung base with probable residual atelectasis. Small bilateral pleural effusions are noted." - Diuresis with IV furosemide as tolerated (dose was reduced from 40 mg twice daily to 20 mg daily) - May benefit from metoprolol and sacubutril-valsartan if blood pressure allows - Daily weights - Strict I/O - Cardiac diet, 1.5 L fluid restriction, 2 g Na restriction # Degenerative Joint Disease with Moderate L1-L4 Neural Foraminal Narrowing # Bilateral Hip Arthritis # Urolithiasis - CT lumbar spine = "no acute osseous abnormality. Multilevel degenerative changes as above. Please consider MRI follow-up for assessment of disc disease and neural involvement as clinically indicated." - CT pelvis = "no acute osseous abnormality of the bony pelvis. Degenerative changes of the PA joints worse on the right. Dependent radiodensities along the left aspect of the bladder may relate to gravel or small calculi." - Denies any alarm symptoms (i.e. no unilateral weakness, saddle anesthesia, or no urinary/bowel incontinence) - Follow-up with PCP as an outpatient Mikael Funes M.D.
[2023-02-28] MEDS ORDERED: VANCOMYCIN 750 MG in NA CHLORIDE 0.9% 150 ML IVPB SCH ×4 (19:00)
[2023-02-28] MEDS: VANCOMYCIN 750 MG in NA CHLORIDE 0.9% 150 ML IVPB SCH (19:00)
[2023-02-28] MEDS: CALCIUM CARBONATE CHEW 500MG TAB PO PRN (19:29)
[2023-02-28] MEDS: MIDODRINE HCL 5 MG TABLET PO SCH (20:01)
[2023-02-28] MEDS: ATORVASTATIN 40 MG TAB PO SCH (20:45)
[2023-02-28] MEDS: JUVEN PACKET PO SCH (20:46)
--- NOTE | 2023-02-28 21:15 | PN ---
Date of Progress Note: 02/28/2023 Subjective: Seen by bedside, doing better. Heart rate is better with amiodarone. Review of Systems: No chest pain. She has shortness of breath and cough. No nausea, vomiting, or diarrhea. All other systems reviewed and they are negative. Physical Examination: Vital Signs: Reviewed. Head and Neck: Pupils are equal and reactive to light. Intact eye movements. No JVD. No cervical lymphadenopathy. Neck is supple. Thyroid is not enlarged. Lungs: Clear to auscultation bilaterally. No rhonchi, wheezing, or crackles. No accessory muscle u se. Heart: Irregularly irregular. No extra sounds. Abdomen: Soft, nontender. Bowel sounds positive. No organomegaly. No masses or hernia. No rigidi ty or rebound. Extremities: No clubbing or cyanosis. Skin: No rash was noted. Neuro: Alert, awake, and oriented x3. No acute focal deficits appreciated. Investigations: Labs reviewed. Assessment/recommendation: Atrial fibrillation with rapid ventricular response, now rate is controll ed. Once the 24 hours of IV amiodarone load is finished, we will start her on 200 mg by mouth twice a day and oral anticoagulation with Eliquis and we will plan for SHARYN cardioversion if she continues to be in atrial fibrillation after the amiodarone load. SR/MODL Voice ID: [id number] Report ID: [id number]
[2023-03-01] MEDS: IPRATROPIUM BROM 0.5MG/2.5ML NEB SCH ×4 (01:10→20:00)
[2023-03-01] MEDS: ALBUTEROL 2.5 MG/3 ML NEB SOL NEB SCH ×4 (01:10→20:00)
[2023-03-01] MEDS: CEFEPIME 2 GM in NA CHLORIDE 0.9% 100 ML IV SCH (04:37)
[2023-03-01] MEDS: BENZONATATE 100 MG CAP PO PRN ×2 (04:52→17:01)
[2023-03-01 05:06] LABS: Hematocrit 32.1 % (36.0-45.0); MCV 88.3 fL (80-100); MPV 10.6 fL (7.6-11.3); RBC Red Blood Cell Count 3.63 M/uL (3.86-4.86)
[2023-03-01 05:39] LABS: Potassium 4.5 mEq/L (3.5-5.1)
[2023-03-01] MEDS: ACETAMINOPHEN 325 MG TABLET PO PRN (05:51)
[2023-03-01] MEDS ORDERED: NA CHLORIDE 0.9% 250 ML IV ONE (07:16)
[2023-03-01] MEDS: JUVEN PACKET PO SCH ×2 (09:00→22:37)
[2023-03-01] MEDS: ASPIRIN 81 MG CHEWABLE TABLET PO SCH (09:24)
[2023-03-01] MEDS: APIXABAN 5 MG TABLET PO SCH ×2 (09:24→22:38)
[2023-03-01] MEDS: FOLIC ACID 1 MG TABLET PO SCH (09:24)
[2023-03-01] MEDS: MIDODRINE HCL 5 MG TABLET PO SCH ×3 (09:24→22:37)
[2023-03-01] MEDS: GABAPENTIN 100 MG CAP PO SCH ×2 (09:24→22:37)
[2023-03-01] MEDS: Mupirocin NASAL 2 APPL/1 GM TUBE NAS SCH ×2 (09:25→22:38)
[2023-03-01] MEDS ORDERED: NA CHLORIDE 0.9% 250 ML ONE (09:31)
[2023-03-01] MEDS: Meropenem 500 MG in NA CHLORIDE 0.9% 100 ML IV SCH ×2 (09:33→22:38)
[2023-03-01] MEDS: AMIODARONE HCL 200 MG TAB PO SCH (18:25)
--- NOTE | 2023-03-01 18:26 | P.PN ---
Subjective Date of Service: 03/01/23 Chief Complaint: Syncope, A-fib with RVR, for Overnight, she converted into normal sinus rhythm. Her blood cultures have returned positive for ESBL E. Coli. She states that she feels well this morning. She reports generalized weakness. She denies any chest pain, palpitations, or shortness of breath. Review of Systems 10-point ROS is otherwise unremarkable General: Weakness (generalized) Physical Examination - Vital Signs Temperature: 98.2 F Blood Pressure: 115/71 Pulse: 76 Respirations: 20 Pulse Ox (%): 98 - Studies Microbiology Data (last 24 hrs): 02/26/23 13:35 Blood - Blood Aerobic Blood Culture - Final Escherichia Coli Esbl 02/26/23 13:35 Blood - Blood Blood Culture Gram Stain - Final 02/26/23 13:35 Blood - Blood Anaerobic Blood Culture - Final 02/26/23 13:50 Blood - Blood Aerobic Blood Culture - Final Escherichia Coli Esbl 02/26/23 13:50 Blood - Blood Blood Culture Gram Stain - Final 02/26/23 13:50 Blood - Blood Anaerobic Blood Culture - Final Assessment And Plan - Plan - Physical Exam General: Alert, In no apparent distress, Oriented x3 HEENT: Atraumatic, Mucous membr. moist/pink, Sclerae nonicteric Neck: JVD not distended Respiratory: Clear to auscultation bilaterally, Diminished Cardiovascular: No edema, No murmurs, Regular rate/rhythm Gastrointestinal: Normal bowel sounds, Soft, Non-distended, No tenderness Musculoskeletal: No clubbing Integumentary: No rashes Neurological: Normal speech, Sensation intact, Cranial nerves 3-12 intact, Normal affect, Abnormal strength (5/5 BUE, 5/5 RLE, 4/5 LLE) NIH Stroke Scale 1a. Level of consciousness: 0 - Alert; keenly responsive 1b. LOC questions: 0 - Both questions right 1c. LOC commands: 0 - Performs both tasks 2. Best Gaze: 0 - Normal 3. Visual: 0 - No visual loss 4. Facial Palsy: 0 - Normal symmetry 5a. Motor left arm: 0 - No drift for 10 seconds 5b. Motor right arm: 0 - No drift for 10 seconds 6a. Motor left le - drift, hits bed 6b. Motor right le - No drift for 5 seconds 7. Limb ataxia: 0 - No ataxia 8. Sensory: 0 - Normal; no sensory loss 9. Best Language: 0 - Normal; no aphasia 10. Dysarthria: 0 - Normal 11. Extinction and Inattention: 0 - No abnormality 12. Distal motor function: 0 - No abnormality Total Score: 2 # Suspected Septic Shock secondary to Left Lower Extremity Cellulitis with ESBL Escherichia Coli Bacteremia # Stage II Sacral Pressure Ulcer - POA # Stage I Left Heel Pressure Ulcer - POA She met SIRS criteria based on HR > 90 bpm, RR > 20 breaths/min, and WBC > 12,000, and the suspected source is cellulitis. Severe sepsis is suspected due to concern for tissue hypoperfusion/organ dysfunction based on bilirubin >2 mg/dL, coagulopathy (INR > 1.5), and lactic acid > 2 mmol/L. Septic shock is suspected due to initial lactate > 4 mmol/L and systolic blood pressures less than 90 mmHg. - Infectious Diseases consulted and spoke with [employer] Adonay - recommendations appreciated - Sepsis order set was initiated - Lactate trend: 4.9 -> 3.9 - Blood cultures drawn: positive for ESBL E. Coli - Broad spectrum antibiotics started: vancomycin + cefepime -> meropenem - In regards to fluids: - 30 mL/kg of IV fluids was not administered given positive response to a lesser volume - In regards to intermittent hypotension, she is asymptomatic from these episodes - Likely combination of sepsis and intravascular volume depletion - Initially concerned for volume overload/pulmonary hypertension in the setting of a CHF exacerbation, so she was placed on furosemide. On today's exam, she appears dry. - Discontinued furosemide - Utilize albumin and small doses of NS bolus - Started low-dose midodrine # Subacute Left Parieto-Occipital Cerebrovascular Accident # Syncope - suspect due to above # Dyslipidemia - Consulted Neurology and spoke with Dr. Gauthier - recommendations appreciated - NIHSS = 2 - q4hr neurochecks - Unable to obtain MRI given AICD - CT head/cervical spine = "no acute traumatic intracranial or cervical spine findings. Left parieto-occipital region of hypoattenuation suggestive of a subacute infarct. Other sequelae of remote ischemia noted in the bilateral frontal regions." - Carotid ultrasound = "mild plaque within the carotid arteries without evidence of a hemodynamically significant stenosis." - PT/OT evaluation requested - Ordered risk profile: - Hgb A1c = 5.9 % - Lipid panel = TC 83, LDL 45, HDL 20, TG 91 - TSH = 1.84 - Started aspirin, atorvastatin, folic acid # Paroxysmal Atrial Fibrillation with Rapid Ventricular Response - now in sinus rhythm # History of Deep Venous Thrombosis Her [id number] = 6 (CHF=1, HTN=1, Age>75=2, CVA=1, Sex=1), which warrants anticoagulation. - Cardiology consulted and spoke with Dr. Howe - recommendations appreciated - For rate control: - Switch amiodarone drip to PO amiodarone - For anticoagulation: - Continue apixaban # Acute on Chronic Decompensated Systolic Congestive Heart Failure with Reduced Ejection Fraction s/p AICD - resolved # Pulmonary Hypertension - Consult Cardiology - recommendations appreciated - NT-Pro BNP 46,076 - Chest x-ray = "stable right basal opacification and possible effusion." - Transthoracic echocardiogram (December 2022) = "1. severe global hypokinesis 2. ejection fraction 33-35% 3. mild tricuspid regurgitation" - CT chest = "pronounced cardiomegaly, mild central interstitial prominence, and prominent main pulmonary artery caliber, findings which suggest a degree of congestive heart failure, possibly with [pulmonary] hypertension. Please correlate clinically. New rounded pleural-based opacity in the peripheral basal left lower lobe, could relate to atelectasis or early airspace disease. Improving aeration in the right lung base with probable residual atelectasis. Small bilateral pleural effusions are noted." - Appears dry on exam today - hold furosemide - May benefit from metoprolol and sacubutril-valsartan if blood pressure allows - Daily weights - Strict I/O - Cardiac diet, 1.5 L fluid restriction, 2 g Na restriction # KDIGO Stage I Acute Kidney Injury # Microscopic Hematuria suspect secondary to Traumatic Rojas Catheter Insertion - Consulted Nephrology - recommendations appreciated - Creatinine = 1.56 -> 1.41 -> 1.31 -> 1.63 - Urinalysis = 75 leukocyte esterase, 510 RBCs, 1020 WBCs, 1+ protein - Monitor creatinine and urine output - If worsening, obtain renal ultrasound - Renally dose medications # Degenerative Joint Disease with Moderate L1-L4 Neural Foraminal Narrowing # Bilateral Hip Arthritis # Urolithiasis - CT lumbar spine = "no acute osseous abnormality. Multilevel degenerative changes as above. Please consider MRI follow-up for assessment of disc disease and neural involvement as clinically indicated." - CT pelvis = "no acute osseous abnormality of the bony pelvis. Degenerative changes of the PA joints worse on the right. Dependent radiodensities along the left aspect of the bladder may relate to gravel or small calculi." - Denies any alarm symptoms (i.e. no unilateral weakness, saddle anesthesia, or no urinary/bowel incontinence) - Follow-up with PCP as an outpatient Mikael Funes M.D.
[2023-03-01] MEDS: MELATONIN 3 MG TABLET PO PRN (22:36)
[2023-03-01] MEDS: ATORVASTATIN 40 MG TAB PO SCH (22:37)
[2023-03-02] MEDS: ALBUTEROL 2.5 MG/3 ML NEB SOL NEB SCH ×4 (01:08→20:00)
[2023-03-02] MEDS: IPRATROPIUM BROM 0.5MG/2.5ML NEB SCH ×4 (01:08→20:00)
[2023-03-02] MEDS: CALCIUM CARBONATE CHEW 500MG TAB PO PRN (02:32)
[2023-03-02 03:05] LABS: Absolute Lymphocytes (CBC) 0.9 K/uL (0.7-4.9); Hematocrit 33.8 % (36.0-45.0); Lymphocytes % 9.4 % (15.3-44.8); MCV 87.2 fL (80-100); MPV 11.1 fL (7.6-11.3); RBC Red Blood Cell Count 3.88 M/uL (3.86-4.86)
[2023-03-02 03:18] LABS: Potassium 4.2 mEq/L (3.5-5.1)
[2023-03-02] MEDS: JUVEN PACKET PO SCH ×2 (09:00→20:44)
[2023-03-02] MEDS: FOLIC ACID 1 MG TABLET PO SCH (09:00)
--- NOTE | 2023-03-02 09:01 | P.CNS ---
Date of Consult: 03/02/23 Reason for Consult: MAY/ CKD Requesting Physician: Mikael Funes Chief Complaint: Syncope, A-fib with RVR, for History of Present Illness: Patient is a 77-year-old female with a past medical history significant for CHF, HLD, hypertension, insomnia who presents with complaint of syncope Patient is alert and oriented x2. Patient is a poor historian and unable to provide accurate history. Patient reported that she passed out this morning and unable to remember how long she was on the floor. Patient reported that she has some weakness in her lower extremities. Patient was found on the floor by the machine maintenance servicer in her apartment complex. No other signs and symptoms reported. Symptoms are aggravated or relieved by nothing. Patient noted with bilateral lower extremity swelling/redness/wounds as well as mild redness in abdominal folds. Patient was brought to the hospital for medical evaluation. 20:56 This 77 yrs old Female presents to ER via EMS with complaints of Fall Injury, Hip rt Injury. 20:56 Patient presents to the ED following fall. She cannot recall the events surrounding the rt fall. History is somewhat limited due to confusion. The patient reports a pain to the right hip, denies other injury or other pain at this time. Symptoms are moderate severity, aching nature, nonradiating, no other aggravating or elevating factors.. Allergies sulfamethoxazole [From Bactrim] Allergy (Verified 02/26/23 21:43) Itching trimethoprim [From Bactrim] Allergy (Verified 02/26/23 21:43) Itching Penicillins Adverse Reaction (Verified 02/26/23 21:43) swelling Home medications list reviewed: Yes - Past Medical/Surgical History Diabetic: No -: HTN -: Systolic CHF -: Pulmonary HTN -: HLD -: CKD III (Dr. Gonzales/ Dr. Lopez) -: joint replacement -: R Knee sx - Social History Alcohol use: Yes CD- Drugs: No Caffeine use: Yes Place of Residence: Home Review of Systems 10-point ROS is otherwise unremarkable General: Weakness, Malaise Respiratory: SOB with Excertion Integumentary: Lesions Physical Examination Temp Pulse Resp BP Pulse Ox 97.4 F 79 16 134/73 94 03/02/23 08:00 03/02/23 08:00 03/02/23 08:00 03/02/23 08:00 03/02/23 08:00 General: In no apparent distress, Cooperative HEENT: Atraumatic Neck: Supple Respiratory: Normal air movement Cardiovascular: Regular rate/rhythm, Edema Gastrointestinal: Soft and benign, Non-distended Musculoskeletal: No clubbing, No contractures Integumentary: No cyanosis, Skin lesion Neurological: Normal speech Blood work reviewed in the chart Imagings Data: EXAM DESCRIPTION: RADChest Single View02/28/2023 11:08 am CLINICAL HISTORY: PICC line placment COMPARISON: Chest Single View dated 02/28/2023; Chest Single View dated 02/26/2023; Chest Single View dated 12/26/2022; Chest Single View dated 12/22/2022; Thorax Wo Con dated 02/26/2023 TECHNIQUE: Portable AP view of the chest. FINDINGS: PICC line has been retracted, its tip now projects over the superior cavoatrial junction. Stable cardiomegaly and right basilar opacification. No pneumothorax or effusion. The mediastinal contours are unremarkable. IMPRESSION: Interval retraction of the right arm PICC as above. EXAM DESCRIPTION: CT - Thorax Wo Con - 02/26/2023 8:36 pm CLINICAL HISTORY: R O PNA COMPARISON: Chest Abd Pelvis Wo Con dated 12/17/2022; Chest Single View dated 02/26/2023 TECHNIQUE: Axial thin cut images of the chest were obtained without IV contrast. Multiplanar reformats were generated and reviewed. All CT scans are performed using dose optimization technique as appropriate and may include automated exposure control or mA/KV adjustment according to patient size. FINDINGS: Partial improvement of aeration in the right lung base. Elevation of the right hemidiaphragm. New rounded pleural-based opacity in the peripheral basal left lower lobe, see image 32 axial series 201. Mild background central interstitial prominence. No pleural thickening. Small layering pleural effusions. . No pneumothorax. Pronounced cardiomegaly with mild to moderate pericardial effusion. Left chest wall pacer/ AICD in place. Prominent caliber of the main pulmonary artery, which may relate to pulmonary hypertension. No abnormal mediastinal or hilar masses or lymphadenopathy seen. No significant aortic or pulmonary artery findings. Assessment is limited in the absence of IV contrast. No chest wall mass or abnormal axillary lymphadenopathy. Evaluation of the solid abdominal structures reveals no suspicious findings. IMPRESSION: Pronounced cardiomegaly, mild central interstitial prominence, and prominent main pulmonary artery caliber, findings which suggest a degree of congestive heart failure, possibly with portal hypertension. Please correlate clinically. New rounded pleural-based opacity in the peripheral basal left lower lobe, could relate to atelectasis or early airspace disease. Improving aeration in the right lung base with probable residual atelectasis. Small bilateral pleural effusions are noted. Conclusions/Impression: Stage I MAY likely multifactorial complicated by episodic hypotension CKD III with Proteinuria -No NSAIDs Microscopic Hematuria -Repeat UA Hyponatremia, resolved Hypotension -Continue Midodrine Systolic CHF, chronic LVEF 33% -Low sodium diet -Daily weight IFG A1C 5.9 -No sugar diet Moderate Hypoalbuminemia/ Protein Malnutrition Decreased functional ability with Multiple Wounds -Continue Romero -PT as tolerated Anemia in chronic illness -Monitor H&H Thank you kindly for the consultation
[2023-03-02] MEDS: GABAPENTIN 100 MG CAP PO SCH ×2 (09:57→20:43)
[2023-03-02] MEDS: ASPIRIN 81 MG CHEWABLE TABLET PO SCH (09:57)
[2023-03-02] MEDS: AMIODARONE HCL 200 MG TAB PO SCH ×2 (09:57→20:43)
[2023-03-02] MEDS: MIDODRINE HCL 5 MG TABLET PO SCH ×3 (09:57→20:43)
[2023-03-02] MEDS: APIXABAN 5 MG TABLET PO SCH ×2 (09:57→20:43)
[2023-03-02] MEDS: Meropenem 500 MG in NA CHLORIDE 0.9% 100 ML IV SCH ×2 (09:58→20:44)
[2023-03-02] MEDS: Mupirocin NASAL 2 APPL/1 GM TUBE NAS SCH ×2 (09:58→20:44)
--- NOTE | 2023-03-02 15:43 | P.PN ---
Subjective Date of Service: 03/02/23 Chief Complaint: Syncope, A-fib with RVR, for No acute events overnight. She reports that her symptoms have improved compared to yesterday. She denies any chest pain, palpitations, or shortness of breath. Review of Systems 10-point ROS is otherwise unremarkable General: Weakness (generalized) Physical Examination - Vital Signs Temperature: 97.4 F Blood Pressure: 121/84 Pulse: 75 Respirations: 16 Pulse Ox (%): 100 Assessment And Plan - Plan - Physical Exam General: Alert, In no apparent distress, Oriented x3 HEENT: Atraumatic, Mucous membr. moist/pink, Sclerae nonicteric Neck: JVD not distended Respiratory: Clear to auscultation bilaterally, Diminished Cardiovascular: No edema, No murmurs, Regular rate/rhythm Gastrointestinal: Normal bowel sounds, Soft, Non-distended, No tenderness Musculoskeletal: No clubbing Integumentary: No rashes Neurological: Normal speech, Sensation intact, Cranial nerves 3-12 intact, Normal affect, Abnormal strength (5/5 BUE, 5/5 RLE, 4/5 LLE) NIH Stroke Scale 1a. Level of consciousness: 0 - Alert; keenly responsive 1b. LOC questions: 0 - Both questions right 1c. LOC commands: 0 - Performs both tasks 2. Best Gaze: 0 - Normal 3. Visual: 0 - No visual loss 4. Facial Palsy: 0 - Normal symmetry 5a. Motor left arm: 0 - No drift for 10 seconds 5b. Motor right arm: 0 - No drift for 10 seconds 6a. Motor left le - drift, hits bed 6b. Motor right le - No drift for 5 seconds 7. Limb ataxia: 0 - No ataxia 8. Sensory: 0 - Normal; no sensory loss 9. Best Language: 0 - Normal; no aphasia 10. Dysarthria: 0 - Normal 11. Extinction and Inattention: 0 - No abnormality 12. Distal motor function: 0 - No abnormality Total Score: 2 # Suspected Septic Shock secondary to Left Lower Extremity Cellulitis with ESBL Escherichia Coli Bacteremia # Stage II Sacral Pressure Ulcer - POA # Stage I Left Heel Pressure Ulcer - POA She met SIRS criteria based on HR > 90 bpm, RR > 20 breaths/min, and WBC > 12,000, and the suspected source is cellulitis. Severe sepsis is suspected due to concern for tissue hypoperfusion/organ dysfunction based on bilirubin >2 mg /dL, coagulopathy (INR > 1.5), and lactic acid > 2 mmol/L. Septic shock is suspected due to initial lactate > 4 mmol/L and systolic blood pressures less than 90 mmHg. - Infectious Diseases consulted and spoke with WEB MANAGER Adonay - recommendations appreciated - Sepsis order set was initiated - Lactate trend: 4.9 -> 3.9 - Blood cultures drawn: positive for ESBL E. Coli - Broad spectrum antibiotics started: vancomycin + cefepime -> meropenem - In regards to fluids: - 30 mL/kg of IV fluids was not administered given positive response to a lesser volume - In regards to intermittent hypotension, she is asymptomatic from these episodes - Likely combination of sepsis and intravascular volume depletion - Initially concerned for volume overload/pulmonary hypertension in the setting of a CHF exacerbation, so she was placed on furosemide. On today's exam, she appears dry. - Discontinued furosemide - Utilize albumin and small doses of NS bolus - Started low-dose midodrine # Subacute Left Parieto-Occipital Cerebrovascular Accident # Syncope - suspect due to above # Dyslipidemia - Consulted Neurology and spoke with Dr. Gauthier - recommendations appreciated - NIHSS = 2 - q4hr neurochecks - Unable to obtain MRI given AICD - CT head/cervical spine = "no acute traumatic intracranial or cervical spine findings. Left parieto-occipital region of hypoattenuation suggestive of a subacute infarct. Other sequelae of remote ischemia noted in the bilateral frontal regions." - Carotid ultrasound = "mild plaque within the carotid arteries without evidence of a hemodynamically significant stenosis." - PT/OT evaluation requested - Ordered risk profile: - Hgb A1c = 5.9 % - Lipid panel = TC 83, LDL 45, HDL 20, TG 91 - TSH = 1.84 - Started aspirin, atorvastatin, folic acid # Paroxysmal Atrial Fibrillation with Rapid Ventricular Response - now in sinus rhythm # History of Deep Venous Thrombosis Her [id number] = 6 (CHF=1, HTN=1, Age>75=2, CVA=1, Sex=1), which warrants anticoagulation. - Cardiology consulted and spoke with Dr. Howe - recommendations appreciated - For rate control: - Continue amiodarone - For anticoagulation: - Continue apixaban # Acute on Chronic Decompensated Systolic Congestive Heart Failure with Reduced Ejection Fraction s/p AICD - resolved # Pulmonary Hypertension - Consult Cardiology - recommendations appreciated - NT-Pro BNP 46,076 - Chest x-ray = "stable right basal opacification and possible effusion." - Transthoracic echocardiogram (December 2022) = "1. severe global hypokinesis 2. ejection fraction 33-35% 3. mild tricuspid regurgitation" - CT chest = "pronounced cardiomegaly, mild central interstitial prominence, and prominent main pulmonary artery caliber, findings which suggest a degree of congestive heart failure, possibly with [pulmonary] hypertension. Please correlate clinically. New rounded pleural-based opacity in the peripheral basal left lower lobe, could relate to atelectasis or early airspace disease. Improving aeration in the right lung base with probable residual atelectasis. Small bilateral pleural effusions are noted." - Appears dry on exam today - hold furosemide - May benefit from metoprolol and sacubutril-valsartan if blood pressure allows - Daily weights - Strict I/O - Cardiac diet, 1.5 L fluid restriction, 2 g Na restriction # KDIGO Stage I Acute Kidney Injury # Microscopic Hematuria suspect secondary to Traumatic Rojas Catheter Insertion - Consulted Nephrology and spoke with Dr. Gonzales - recommendations appreciated - Creatinine = 1.56 -> 1.41 -> 1.31 -> 1.63 -> 1.37 - Urinalysis = 75 leukocyte esterase, 510 RBCs, 1020 WBCs, 1+ protein - Monitor creatinine and urine output - If worsening, obtain renal ultrasound - Renally dose medications # Degenerative Joint Disease with Moderate L1-L4 Neural Foraminal Narrowing # Bilateral Hip Arthritis # Urolithiasis - CT lumbar spine = "no acute osseous abnormality. Multilevel degenerative changes as above. Please consider MRI follow-up for assessment of disc disease and neural involvement as clinically indicated." - CT pelvis = "no acute osseous abnormality of the bony pelvis. Degenerative changes of the PA joints worse on the right. Dependent radiodensities along the left aspect of the bladder may relate to gravel or small calculi." - Denies any alarm symptoms (i.e. no unilateral weakness, saddle anesthesia, or no urinary/bowel incontinence) - Follow-up with PCP as an outpatient Mikael Funes M.D.
--- NOTE | 2023-03-02 20:19 | PN ---
Date of Progress Note: 03/02/2023 Subjective: Seen by bedside, doing clinically well. No palpitations. Review of Systems: No chest pain or shortness of breath. Heart has been in sinus. No distress. No nausea, vomiting, d iarrhea. All other systems reviewed are negative. Physical Examination: Vital Signs: Temperature is 97.4, pulse 73, breathing 16, blood pressure 127/76, saturating 97% on r oom air. General: Pleasant elderly female, in no apparent distress. Head and Neck: Pupils are equal, reactive to light. Intact eye movements. No JVD. No cervical lym phadenopathy. Neck is supple. Thyroid is not enlarged. Lungs: Clear to auscultation bilaterally. No rhonchi, wheezes, or crackles. No accessory muscle us e. Heart: Regular rate and rhythm. No extra sounds. Abdomen: Soft, nontender. Bowel sounds positive. No organomegaly. No masses or hernia. No rigidi ty or rebound. Extremities: No edema, clubbing, or cyanosis. Intact pulses. Skin: No rashes. Neurologic: Alert, awake, oriented x3. No acute focal deficits appreciated. Lymph nodes: No cervical or axillary lymphadenopathy. Investigations: Labs were reviewed. Assessment And Recommendation: 1.Atrial fibrillation with rapid ventricular response. She converted to sinus rhythm. Continue ami odarone 200 mg twice a day as well as Eliquis. 2.Sepsis due to gram-negative bacteria, on wide spectrum antibiotics. 3.History of deep vein thrombosis, on Eliquis. Continue current management. SR/MODL Voice ID: [id number] Report ID: [id number]
[2023-03-02] MEDS: ATORVASTATIN 40 MG TAB PO SCH (20:43)
[2023-03-02] MEDS: MELATONIN 3 MG TABLET PO PRN (23:32)
[2023-03-03] MEDS: IPRATROPIUM BROM 0.5MG/2.5ML NEB SCH ×4 (01:58→20:50)
[2023-03-03] MEDS: ALBUTEROL 2.5 MG/3 ML NEB SOL NEB SCH ×4 (01:59→20:50)
[2023-03-03 05:03] LABS: Absolute Lymphocytes (CBC) 0.7 K/uL (0.7-4.9); Hematocrit 32.4 % (36.0-45.0); Lymphocytes % 8.6 % (15.3-44.8); MCV 87.6 fL (80-100); MPV 10.4 fL (7.6-11.3)
[2023-03-03 05:13] LABS: Albumin 2.2 g/dL (3.4-5.0); Bilirubin Total 0.8 mg/dL (0.2-1.0); Potassium 4.1 mEq/L (3.5-5.1); Protein, Total 5.1 g/dL (6.4-8.2); Uric Acid 11.5 mg/dL (2.6-6.0)
[2023-03-03 05:51] LABS: Calcium Oxalate Crystals- Ur Few /HPF (None Seen); Specific Gravity 1.023 (1.005-1.030); Urine Bacteria None Seen /HPF (<20); Urine Bilirubin NEGATIVE (Negative); Urine Blood 3+ (OVER) (Negative); Urine Clarity Extremely Turbid (Clear); Urine Color Light-Orange (Yellow); Urine Glucose NEGATIVE (Negative); Urine Protein 1+ (Negative); Urine RBC >50 /HPF (None Seen); Urine Urobilinogen Normal (Normal); Urine Yeast with Hyphae Trace /HPF (None Seen); Urine pH 5.5 (5.0-7.0)
[2023-03-03 06:03] LABS: UR PROTEIN 272.1 mg/dL (<11.9); Urine Protein/Creatinine Ratio 3.09 ratio (<0.15)
[2023-03-03 07:06] LABS: UR MICROALBUMIN 61.6 mg/dL (< 1.9)
--- NOTE | 2023-03-03 09:08 | P.PN ---
Date of Service: 03/03/23 Chief Complaint: Syncope, A-fib with RVR, for Subjective: Patient seen and examined at bedside. Denies any new or worsening complaints. No acute events reported overnight. A&O x 2-3. On 1 L NC. Physical Examination Temp Pulse Resp BP Pulse Ox 97.6 F 76 16 112/53 L 98 03/03/23 08:00 03/03/23 08:00 03/03/23 08:00 03/03/23 08:00 03/03/23 08:00 General: Alert, In no apparent distress, Oriented x2-3 HEENT: Atraumatic, Normocephalic. Missing teeth. Neck: Supple, JVD not distended Respiratory: Normal air movement. On intermittent nasal cannula 1-2LPM. Cardiovascular: No edema,irregular rhythm. Gastrointestinal: Normal bowel sounds, Soft and benign Musculoskeletal: No clubbing, No swelling Integumentary: Superficial skin lesion on right lower leg fallon. Onychomycosis noted Urinary: Rojas catheter draining bre colored urine, sediment noted. Laboratory Data - Reviewed Microbiology Data - Reviewed Imagings Data: -CT Chest 02/26: "Pronounced cardiomegaly, mild central interstitial prominence, and prominent main pulmonary artery caliber, findings which suggest a degree of congestive heart failure, possibly with portal hypertension. Please correlate clinically. New rounded pleural-based opacity in the peripheral basal left lower lobe, could relate to atelectasis or early airspace disease. Improving aeration in the right lung base with probable residual atelectasis. Small bilateral pleural effusions are noted." - CT Head/Cervical Spine 02/26: "No acute traumatic intracranial or cervical spine findings. Left parieto-occipital region of hypoattenuation suggestive of a subacute infarct. Other sequelae of remote ischemia noted in the bilateral frontal regions." - CT Lumbar Spine 02/26: "No acute osseous abnormality." Medication List: Reviewed Assessment and Plan Problem List Hypertension Hyperlipidemia Congestive Heart Failure Atrial fibrillation with RVR Severe Sepsis Cellulitis Syncope Anemia Severe PCM E.coli ESBL Bacteremia Severe Sepsis - Blood cultures 02/26: Escherichia coli ESBL - Wound culture leg 02/26: mixed armand - Urine culture 02/28: <10,000 CFU/mL - Leukocytosis resolved (WBC 8.4). Afebrile - Previously on Cefepime and Vancomycin (02/26-03/01) - Currently on Meropenem (started 03/01) Chris with RVR: Cardiology on case Recommendations - E.coli ESBL bacteremia: Continue Meropenem for 2 weeks via PICC line. IV antibiotics started 02/26 - Maintain adequate hydration and nutrition ID will follow up with patient as needed and monitor for worsening signs of infection. Case discussed with Prasad Gomez
[2023-03-03] MEDS: ASPIRIN 81 MG CHEWABLE TABLET PO SCH (09:31)
[2023-03-03] MEDS: AMIODARONE HCL 200 MG TAB PO SCH ×2 (09:31→20:18)
[2023-03-03] MEDS: GABAPENTIN 100 MG CAP PO SCH ×2 (09:32→20:18)
[2023-03-03] MEDS: MIDODRINE HCL 5 MG TABLET PO SCH ×3 (09:32→20:18)
[2023-03-03] MEDS: Meropenem 500 MG in NA CHLORIDE 0.9% 100 ML IV SCH ×2 (09:32→20:18)
[2023-03-03] MEDS: APIXABAN 5 MG TABLET PO SCH ×2 (09:32→20:18)
[2023-03-03] MEDS: FOLIC ACID 1 MG TABLET PO SCH (09:32)
[2023-03-03] MEDS: Mupirocin NASAL 2 APPL/1 GM TUBE NAS SCH ×2 (09:32→20:17)
[2023-03-03] MEDS: JUVEN PACKET PO SCH ×2 (09:33→20:19)
--- NOTE | 2023-03-03 11:43 | P.PN ---
Date of Service: 03/03/23 Subjective: Pt with no new complaints. Symptoms are improving. We need to increase her strength. Need to get out of bed and ambulate. ROS: 10 point ROS as noted above, otherwise negative Physical Exam: Vitals: reviewed GEN: Alert, oriented, NAD CV: Regular rate & rhythm, no edema Pulm: Nonlabored respiraitons on 1L NC, diminished at bases b/l ABD: Soft, nontender, nondistended MSK: No joint tenderness Neuro: No focal deficits Problem List: 1. Suspected Septic Shock secondary to Left Lower Extremity Cellulitis with ESBL Escherichia Coli Bacteremia 2. Subacute Left Parieto-Occipital CVA 3. Syncope 4. Dyslipidemia 5. Paroxysmal Atrial Fibrillation with RVR - now in sinus rhythm 6. History of DVT 7. Acute on Chronic Decompensated Systolic Congestive Heart Failure s/p AICD - resolved 8. Pulmonary Hypertension 9. MAY 10. Microscopic Hematuria suspect secondary to Traumatic Rojas Catheter Insertion 11. Degenerative Joint Disease with Moderate L1-L4 Neural Foraminal Narrowing 12. Bilateral Hip Arthritis 13. Urolithiasis 14. Stage II Sacral Pressure Ulcer - POA 15. Stage I Left Heel Pressure Ulcer - POA 1. Antibiotic therapy 2. Continue with antiplatelet therapy 3. Continue with statin therapy 4. Continue with medication for rate control and anticoagulation 5. Continue with cardiac meds 6. Monitor renal function closely 7. Physical therapy evaluation 8. Ambulate and get patient out of bed to a chair 9. Skin care and monitor for worsening pressure ulcers 10. GI DVT prophylaxis
--- NOTE | 2023-03-03 17:17 | EKG ---
Test Date: 2023-02-28 Test Time: 17:51:30 Sweatband Shaper: NORBERTO MEASUREMENT RESULTS: Intervals: Rate: 92 MN: QRSD: 120 QT: 384 QTc: 474 [place]: P: MN: QRS: -25 T: 147 INTERPRETIVE STATEMENTS: Demand pacemaker, interpretation is based on intrinsic rhythm Atrial fibrillation with premature ventricular or aberrantly conducted complexes Septal infarct, age undetermined T wave abnormality, consider lateral ischemia or digitalis effect Abnormal ECG Compared to ECG 02/26/2023 13:51:37 T-wave abnormality now present Possible ischemia now present Myocardial infarct finding still present Electronically Signed On 03-03-23 17:12:11 CDT by Dalton Howe
--- NOTE | 2023-03-03 17:17 | EKG ---
Test Date: 2023-02-28 Test Time: 22:58:21 [employer]ards Beveler: YANIRA MEASUREMENT RESULTS: Intervals: Rate: 71 VT: 200 QRSD: 120 QT: 426 QTc: 462 [place]: P: 44 VT: 200 QRS: -20 T: 140 INTERPRETIVE STATEMENTS: Normal sinus rhythm Anterolateral infarct, age undetermined Abnormal ECG Compared to ECG 02/28/2023 17:51:30 Ventricular-paced complex(es) or rhythm no longer present Atrial fibrillation no longer present Ventricular premature complex(es) no longer present T-wave abnormality no longer present Possible ischemia no longer present Myocardial infarct finding still present Electronically Signed On 03-03-23 17:12:02 CDT by Dalton Howe
[2023-03-03] MEDS: ACETAMINOPHEN 325 MG TABLET PO PRN (18:33)
[2023-03-03] MEDS: ATORVASTATIN 40 MG TAB PO SCH (20:18)
--- NOTE | 2023-03-03 22:13 | P.PN ---
Date of Service: 03/03/23 Vital Signs Temp Pulse Resp BP Pulse Ox 98.9 F 73 17 109/69 98 03/03/23 20:00 03/03/23 20:00 03/03/23 20:00 03/03/23 20:00 03/03/23 20:00 Medications Acetaminophen (Acetaminophen 325 Mg Tablet) 650 mg PO Q6H PRN PRN Reason: TEMP > 100.4' F Last Admin: 03/03/23 18:33 Dose: 650 mg Albuterol Sulfate (Albuterol 2.5 Mg/3 Ml [place]) 2.5 mg NEB [id number] [facility] Last Admin: 03/03/23 13:59 Dose: Not Given Amiodarone HCl (Amiodarone Hcl 200 Mg Tab) 200 mg PO BID [facility] Last Admin: 03/03/23 20:18 Dose: 200 mg Apixaban (Apixaban 5 Mg Tablet) 5 mg PO BID [facility] Last Admin: 03/03/23 20:18 Dose: 5 mg Aspirin (Aspirin 81 Mg Chewable Tablet) 81 mg PO DAILY [facility] Last Admin: 03/03/23 09:31 Dose: 81 mg Atorvastatin Calcium (Atorvastatin 40 Mg Tab) 40 mg PO BEDTIME [facility] Last Admin: 03/03/23 20:18 Dose: 40 mg Benzonatate (Benzonatate 100 Mg Cap) 100 mg PO TID PRN PRN Reason: COUGH Last Admin: 03/01/23 17:01 Dose: 100 mg Calcium Carbonate/Glycine (Calcium Carbonate Chew 500mg Tab) 500 mg PO BID PRN PRN Reason: INDIGESTION Last Admin: 03/02/23 02:32 Dose: 500 mg Folic Acid (Folic Acid 1 Mg Tablet) 1 mg PO DAILY [facility] Last Admin: 03/03/23 09:32 Dose: 1 mg Gabapentin (Gabapentin 100 Mg Cap) 100 mg PO BID [facility] Last Admin: 03/03/23 20:18 Dose: 100 mg Meropenem 500 mg/ Sodium (Chloride) 100 mls @ 200 mls/hr IV Q12HR [facility]; Protocol Last Admin: 03/03/23 20:18 Dose: 100 mls Ipratropium [place] (Ipratropium Brom 0.5mg/2.5ml) 0.5 mg NEB [id number] [facility] Last Admin: 03/03/23 13:59 Dose: Not Given L-Arginine/L-Glutamine/HMB (Romero Packet) 1 pkt PO BID [facility] Last Admin: 03/03/23 20:19 Dose: 1 pkt Melatonin (Melatonin 3 Mg Tablet) 3 mg PO BEDTIME PRN PRN PRN Reason: INSOMNIA Last Admin: 03/02/23 23:32 Dose: 3 mg Midodrine (Midodrine Hcl 5 Mg Tablet) 5 mg PO TID [facility] Last Admin: 03/03/23 20:18 Dose: 5 mg Mupirocin (Mupirocin Nasal 2 Appl/1 Gm Tube) 1 appl DULCE BID [facility] Stop: 03/04/23 21:01 Last Admin: 03/03/23 20:17 Dose: 1 appl Ondansetron HCl (Ondansetron 4 Mg/2 Ml Vial) 4 mg IV Q6HP PRN PRN Reason: NAUSEA / VOMITING Sodium Chloride (Flush Normal Saline 10 Ml) 10 ml IV BID [facility] Last Admin: 03/03/23 20:19 Dose: 10 ml Microbiology Results 02/26/23 13:35 Blood - Blood Aerobic Blood Culture - Final Escherichia Coli Esbl 02/26/23 13:35 Blood - Blood Blood Culture Gram Stain - Final 02/26/23 13:35 Blood - Blood Anaerobic Blood Culture - Final 02/26/23 13:50 Blood - Blood Aerobic Blood Culture - Final Escherichia Coli Esbl 02/26/23 13:50 Blood - Blood Blood Culture Gram Stain - Final 02/26/23 13:50 Blood - Blood Anaerobic Blood Culture - Final Assessment/ Plan: Nephrology No dyspnea No chest pain Fatigue Feeling better No acute events overnight Vitals, medications, blood work and imaging reviewed in the chart. General: In no apparent distress, Cooperative HEENT: Atraumatic Neck: Supple Respiratory: Normal air movement Cardiovascular: Regular rate/rhythm, Edema Gastrointestinal: Soft and benign, Non-distended Musculoskeletal: No clubbing, No contractures Integumentary: No cyanosis, Skin lesion Neurological: Normal speech Blood work reviewed in the chart Imagings Data: EXAM DESCRIPTION: RADChest Single View02/28/2023 11:08 am CLINICAL HISTORY: PICC line placment COMPARISON: Chest Single View dated 02/28/2023; Chest Single View dated 02/26/2023; Chest Single View dated 12/26/2022; Chest Single View dated 12/22/2022; Thorax Wo Con dated 02/26/2023 TECHNIQUE: Portable AP view of the chest. FINDINGS: PICC line has been retracted, its tip now projects over the superior cavoatrial junction. Stable cardiomegaly and right basilar opacification. No pneumothorax or effusion. The mediastinal contours are unremarkable. IMPRESSION: Interval retraction of the right arm PICC as above. EXAM DESCRIPTION: CT - Thorax Wo Con - 02/26/2023 8:36 pm CLINICAL HISTORY: R O PNA COMPARISON: Chest Abd Pelvis Wo Con dated 12/17/2022; Chest Single View dated 02/26/2023 TECHNIQUE: Axial thin cut images of the chest were obtained without IV contrast. Multiplanar reformats were generated and reviewed. All CT scans are performed using dose optimization technique as appropriate and may include automated exposure control or mA/KV adjustment according to patient size. FINDINGS: Partial improvement of aeration in the right lung base. Elevation of the right hemidiaphragm. New rounded pleural-based opacity in the peripheral basal left lower lobe, see image 32 axial series 201. Mild background central interstitial prominence. No pleural thickening. Small layering pleural effusions. . No pneumothorax. Pronounced cardiomegaly with mild to moderate pericardial effusion. Left chest wall pacer/ AICD in place. Prominent caliber of the main pulmonary artery, which may relate to pulmonary hypertension. No abnormal mediastinal or hilar masses or lymphadenopathy seen. No significant aortic or pulmonary artery findings. Assessment is limited in the absence of IV contrast. No chest wall mass or abnormal axillary lymphadenopathy. Evaluation of the solid abdominal structures reveals no suspicious findings. IMPRESSION: Pronounced cardiomegaly, mild central interstitial prominence, and prominent main pulmonary artery caliber, findings which suggest a degree of congestive heart failure, possibly with portal hypertension. Please correlate clinically. New rounded pleural-based opacity in the peripheral basal left lower lobe, could relate to atelectasis or early airspace disease. Improving aeration in the right lung base with probable residual atelectasis. Small bilateral pleural effusions are noted. Conclusions/Impression: Stage I MAY likely multifactorial complicated by episodic hypotension CKD III with Proteinuria -No NSAIDs Microscopic Hematuria, persisent -Consider urology evaluation Hyponatremia, resolved Hypotension -Continue Midodrine Systolic CHF, chronic LVEF 33% -Low sodium diet -Daily weight IFG A1C 5.9 -No sugar diet Moderate Hypoalbuminemia/ Protein Malnutrition Decreased functional ability with Multiple Wounds -Continue Romero -PT as tolerated Anemia in chronic illness -Monitor H&H
[2023-03-04] MEDS: MELATONIN 3 MG TABLET PO PRN (00:27)
[2023-03-04] MEDS: ACETAMINOPHEN 325 MG TABLET PO PRN ×2 (00:28→13:49)
[2023-03-04] MEDS: IPRATROPIUM BROM 0.5MG/2.5ML NEB SCH ×4 (01:35→20:50)
[2023-03-04] MEDS: ALBUTEROL 2.5 MG/3 ML NEB SOL NEB SCH ×4 (01:35→20:50)
[2023-03-04] MEDS: BENZONATATE 100 MG CAP PO PRN (02:26)
--- NOTE | 2023-03-04 09:00 | P.PN ---
Date of Service: 03/04/23 Chief Complaint: Syncope, A-fib with RVR, for Subjective: Improving. No acute events reported overnight. Patient resting comfortably in bed. Denies any new or worsening complaints. Afebrile. Physical Examination Temp Pulse Resp BP Pulse Ox 97.6 F 73 16 108/65 95 03/04/23 08:00 03/04/23 08:00 03/04/23 08:00 03/04/23 08:00 03/04/23 08:00 General: Alert, In no apparent distress, Oriented x2-3 HEENT: Atraumatic, Normocephalic. Missing teeth. Neck: Supple, JVD not distended Respiratory: Normal air movement. On intermittent nasal cannula 1-2LPM. Cardiovascular: No edema,irregular rhythm. Gastrointestinal: Normal bowel sounds, Soft and benign Musculoskeletal: No clubbing, No swelling Integumentary: Superficial skin lesion on right lower leg fallon. Onychomycosis noted Urinary: Rojas catheter draining bre colored urine with sediment noted. Laboratory Data - Reviewed Microbiology Data - Reviewed Imagings Data: -CT Chest 02/26: "Pronounced cardiomegaly, mild central interstitial prominence, and prominent main pulmonary artery caliber, findings which suggest a degree of congestive heart failure, possibly with portal hypertension. Please correlate clinically. New rounded pleural-based opacity in the peripheral basal left lower lobe, could relate to atelectasis or early airspace disease. Improving aeration in the right lung base with probable residual atelectasis. Small bilateral pleural effusions are noted." - CT Head/Cervical Spine 02/26: "No acute traumatic intracranial or cervical spine findings. Left parieto-occipital region of hypoattenuation suggestive of a subacute infarct. Other sequelae of remote ischemia noted in the bilateral frontal regions." - CT Lumbar Spine 02/26: "No acute osseous abnormality." Medication List: Reviewed Assessment and Plan Problem List Hypertension Hyperlipidemia Congestive Heart Failure Atrial fibrillation with RVR Severe Sepsis Cellulitis Syncope Anemia Severe PCM * Allergies: Sulfa, Trimethoprim, Penicillins * E.coli ESBL Bacteremia Severe Sepsis, resolved - Blood cultures 02/26: Escherichia coli ESBL - Wound culture leg 02/26: mixed armand - Urine culture 02/28: <10,000 CFU/mL - Leukocytosis resolved (WBC 8.4). Afebrile - Previously on Cefepime and Vancomycin (02/26-03/01) - Currently on Meropenem (started 03/01) Chris with RVR: Cardiology on case Recommendations - E.coli ESBL bacteremia: Continue Meropenem for 2 weeks. - Patient was initially started on Cefepime and Vancomycin 02/26, switched to Meropenem on 03/01. - PICC line in place - Continue supportive care and nutritional support as needed. ID will follow up with patient as needed. Case discussed with Prasad Gomez
[2023-03-04] MEDS: FOLIC ACID 1 MG TABLET PO SCH (09:22)
[2023-03-04] MEDS: MIDODRINE HCL 5 MG TABLET PO SCH ×3 (09:23→20:11)
[2023-03-04] MEDS: ASPIRIN 81 MG CHEWABLE TABLET PO SCH (09:23)
[2023-03-04] MEDS: AMIODARONE HCL 200 MG TAB PO SCH ×2 (09:23→20:12)
[2023-03-04] MEDS: GABAPENTIN 100 MG CAP PO SCH ×2 (09:23→20:10)
[2023-03-04] MEDS: APIXABAN 5 MG TABLET PO SCH ×2 (09:23→20:10)
[2023-03-04] MEDS: Mupirocin NASAL 2 APPL/1 GM TUBE NAS SCH ×2 (09:23→20:11)
[2023-03-04] MEDS: JUVEN PACKET PO SCH ×2 (09:24→20:18)
[2023-03-04] MEDS: Meropenem 500 MG in NA CHLORIDE 0.9% 100 ML IV SCH ×2 (09:24→20:09)
--- NOTE | 2023-03-04 12:49 | P.PN ---
Subjective Date of Service: 03/04/23 Chief Complaint: Syncope, A-fib with RVR, for Subjective: Other (Patient seen at bedside. Complains of shortness of breath after being transferred from chair to bed. Patient denies any chest pain, headache, dizziness or any other signs and symptoms.) Review of Systems General: Unremarkable Eyes: Unremarkable ENT: Unremarkable Respiratory: Shortness of Breath Cardiovascular: Unremarkable Gastrointestinal: Unremarkable Musculoskeletal: Unremarkable Integumentary: Other (BLE wounds) Neurological: Weakness Lymphatics: Unremarkable Physical Examination - Vital Signs Temperature: 97.6 F Blood Pressure: 108/65 Pulse: 73 Respirations: 16 Pulse Ox (%): 95 - Physical Exam General: Alert, In no apparent distress, Oriented x3, Cooperative HEENT: Atraumatic, PERRLA, EOMI Neck: Supple, JVD not distended Respiratory: Diminished Cardiovascular: Regular rate/rhythm, Normal S1 S2 Capillary refill: <2 Seconds Gastrointestinal: Normal bowel sounds, No tenderness Musculoskeletal: Erythema Integumentary: No rashes Neurological: Normal speech, Normal tone, Normal affect Lymphatics: No axilla or inguinal lymphadenopathy Assessment And Plan - Plan Interval history. 03/04/2023. Patient seen at bedside. Complain of shortness of breath. Chest x-ray ordered. O2 sat within normal limits on room air. Patient insisted on going home on discharge. --Continue antibiotics per infectious disease MD recommendation. --MAY being managed by self contained behavior unit teacher. We will await further recommendation from self contained behavior unit teacher. --DVT prophylaxis with Eliquis. . Suspected Septic Shock secondary to Left Lower Extremity Cellulitis with ESBL Escherichia Coli Bacteremia She met SIRS criteria based on HR > 90 bpm, RR > 20 breaths/min, and WBC > 12,000, lactate > 4 mmol/L and systolic blood pressures less than 90 mmHg. ID consulted Blood cultures: ESBL E. Coli intially on vancomycin/cefepime(02/26-03/01) switched to meropenem (03/01) continue meropenem (03/01-) x2 weeks per ID afebrile, no leukocytosis Subacute Left Parieto-Occipital CVA Syncope Dyslipidemia Neurology consulted NIHSS: 2 Unable to obtain MRI given AICD CT head/cervical spine(02/26): no acute traumatic intracranial or cervical spine findings. Left parieto-occipital region of hypoattenuation suggestive of a subacute infarct. Other sequelae of remote ischemia noted in the bilateral frontal regions. Carotid u/s (02/26): mild plaque within the carotid arteries without evidence of a hemodynamically significant stenosis. PT/OT consult aspirin, atorvastatin, folic acid Paroxysmal Atrial Fibrillation with RVR - now in sinus rhythm History of DVT Cardiology consulted amiodarone, apixaban Acute on Chronic Decompensated Systolic Congestive Heart Failure s/p AICD - resolved Pulmonary Hypertension CXR (02/26): "stable right basal opacification and possible effusion." CT chest (02/26): pronounced cardiomegaly, mild central interstitial prominence, and prominent main pulmonary artery caliber, findings which suggest a degree of CHF, possibly with [pulmonary] hypertension. New rounded pleural-based opacity in the peripheral basal left lower lobe, could relate to atelectasis or early airspace disease. Improving aeration in the right lung base with probable residual atelectasis. Small bilateral pleural effusions are noted. TTE (December 2022) = "1. severe global hypokinesis 2. ejection fraction 33-35% 3. mild tricuspid regurgitation" Cardiology consulted Daily weights; Strict I/O MAY Microscopic Hematuria suspect secondary to Traumatic Rojas Catheter Insertion Nephrology consulted UA: = 75 leukocyte esterase, 510 RBCs, 1020 WBCs, 1+ protein continue to monitor renal function improving Degenerative Joint Disease with Moderate L1-L4 Neural Foraminal Narrowing Bilateral Hip Arthritis Urolithiasis CT lumbar spine (02/26): no acute osseous abnormality. Please consider MRI follow-up for assessment of disc disease and neural involvement as clinically indicated. CT pelvis (02/26): no acute osseous abnormality of the bony pelvis. Degenerative changes of the PA joints worse on the right. Dependent radiodensities along the left aspect of the bladder may relate to gravel or small calculi. f/u with PCP as an outpatient DVT prophylaxis with Eliquis. Discharge Plan: Home Plan to discharge in: Greater than 2 days - Code Status/Comfort Care Code Status Assessed: Yes Physician Review: Patient Assessed, Agree with Above Assessment and Plan Critical Care: No
--- NOTE | 2023-03-04 13:59 | RAD REPORT ---
EXAM DESCRIPTION: RAD - Chest Pa And Lat (2 Views) - 03/04/2023 1:32 pm CLINICAL HISTORY: SOB COMPARISON: Chest Single View dated 02/28/2023; Chest Single View dated 02/28/2023; Chest Single View dated 02/26/2023; Chest Single View dated 12/26/2022; Thorax Wo Con dated 02/26/2023 TECHNIQUE: PA and lateral views of the chest were obtained. FINDINGS: No pneumothorax. Patient rotation limits evaluation. Stable positioning of left chest wall pacer and right arm PICC. Allowing for the degree of rotation, stable right basilar airspace opacity with suspected small effusion. blunting of left costophrenic angle, may suggest trace effusion. No a cute bony finding noted. IMPRESSION: Likely stable findings as above.
[2023-03-04] MEDS: ATORVASTATIN 40 MG TAB PO SCH (20:10)
[2023-03-04] MEDS: CALCIUM CARBONATE CHEW 500MG TAB PO PRN (20:10)
--- NOTE | 2023-03-04 20:23 | P.PN ---
Date of Service: 03/04/23 Vital Signs Temp Pulse Resp BP Pulse Ox 97.4 F 73 20 113/80 97 03/04/23 20:00 03/04/23 20:00 03/04/23 20:00 03/04/23 20:00 03/04/23 20:00 Medications Acetaminophen (Acetaminophen 325 Mg Tablet) 650 mg PO Q6H PRN PRN Reason: TEMP > 100.4' F Last Admin: 03/04/23 13:49 Dose: 650 mg Albuterol Sulfate (Albuterol 2.5 Mg/3 Ml [place]) 2.5 mg NEB [id number] [facility] Last Admin: 03/04/23 14:37 Dose: 2.5 mg Amiodarone HCl (Amiodarone Hcl 200 Mg Tab) 200 mg PO BID [facility] Last Admin: 03/04/23 09:23 Dose: 200 mg Apixaban (Apixaban 5 Mg Tablet) 5 mg PO BID [facility] Last Admin: 03/04/23 09:23 Dose: 5 mg Aspirin (Aspirin 81 Mg Chewable Tablet) 81 mg PO DAILY [facility] Last Admin: 03/04/23 09:23 Dose: 81 mg Atorvastatin Calcium (Atorvastatin 40 Mg Tab) 40 mg PO BEDTIME [facility] Last Admin: 03/03/23 20:18 Dose: 40 mg Benzonatate (Benzonatate 100 Mg Cap) 100 mg PO TID PRN PRN Reason: COUGH Last Admin: 03/04/23 02:26 Dose: 100 mg Calcium Carbonate/Glycine (Calcium Carbonate Chew 500mg Tab) 500 mg PO BID PRN PRN Reason: INDIGESTION Last Admin: 03/02/23 02:32 Dose: 500 mg Folic Acid (Folic Acid 1 Mg Tablet) 1 mg PO DAILY [facility] Last Admin: 03/04/23 09:22 Dose: 1 mg Gabapentin (Gabapentin 100 Mg Cap) 100 mg PO BID [facility] Last Admin: 03/04/23 09:23 Dose: 100 mg Meropenem 500 mg/ Sodium (Chloride) 100 mls @ 200 mls/hr IV Q12HR [facility]; Protocol Last Admin: 03/04/23 09:24 Dose: 100 mls Ipratropium Anthony (Ipratropium Brom 0.5mg/2.5ml) 0.5 mg NEB [id number] [facility] Last Admin: 03/04/23 14:37 Dose: 0.5 mg L-Arginine/L-Glutamine/HMB (Romero Packet) 1 pkt PO BID [facility] Last Admin: 03/04/23 09:24 Dose: 1 pkt Melatonin (Melatonin 3 Mg Tablet) 3 mg PO BEDTIME PRN PRN PRN Reason: INSOMNIA Last Admin: 03/04/23 00:27 Dose: 3 mg Midodrine (Midodrine Hcl 5 Mg Tablet) 5 mg PO TID [facility] Last Admin: 03/04/23 13:49 Dose: 5 mg Mupirocin (Mupirocin Nasal 2 Appl/1 Gm Tube) 1 appl DULCE BID [facility] Stop: 03/04/23 21:01 Last Admin: 03/04/23 09:23 Dose: 1 appl Ondansetron HCl (Ondansetron 4 Mg/2 Ml Vial) 4 mg IV Q6HP PRN PRN Reason: NAUSEA / VOMITING Sodium Chloride (Flush Normal Saline 10 Ml) 10 ml IV BID [facility] Last Admin: 03/04/23 09:24 Dose: 10 ml Microbiology Results 02/26/23 13:35 Blood - Blood Aerobic Blood Culture - Final Escherichia Coli Esbl 02/26/23 13:35 Blood - Blood Blood Culture Gram Stain - Final 02/26/23 13:35 Blood - Blood Anaerobic Blood Culture - Final 02/26/23 13:50 Blood - Blood Aerobic Blood Culture - Final Escherichia Coli Esbl 02/26/23 13:50 Blood - Blood Blood Culture Gram Stain - Final 02/26/23 13:50 Blood - Blood Anaerobic Blood Culture - Final Assessment/ Plan: Nephrology No dyspnea No chest pain Fatigue No acute events overnight Vitals, medications, blood work and imaging reviewed in the chart. General: In no apparent distress, Cooperative HEENT: Atraumatic Neck: Supple Respiratory: Normal air movement Cardiovascular: Regular rate/rhythm, Edema Gastrointestinal: Soft and benign, Non-distended Musculoskeletal: No clubbing, No contractures Integumentary: No cyanosis, Skin lesion Neurological: Normal speech Blood work reviewed in the chart Imagings Data: EXAM DESCRIPTION: RADChest Single View02/28/2023 11:08 am CLINICAL HISTORY: PICC line placment COMPARISON: Chest Single View dated 02/28/2023; Chest Single View dated 02/26/2023; Chest Single View dated 12/26/2022; Chest Single View dated 12/22/2022; Thorax Wo Con dated 02/26/2023 TECHNIQUE: Portable AP view of the chest. FINDINGS: PICC line has been retracted, its tip now projects over the superior cavoatrial junction. Stable cardiomegaly and right basilar opacification. No pneumothorax or effusion. The mediastinal contours are unremarkable. IMPRESSION: Interval retraction of the right arm PICC as above. EXAM DESCRIPTION: CT - Thorax Wo Con - 02/26/2023 8:36 pm CLINICAL HISTORY: R O PNA COMPARISON: Chest Abd Pelvis Wo Con dated 12/17/2022; Chest Single View dated 02/26/2023 TECHNIQUE: Axial thin cut images of the chest were obtained without IV contrast. Multiplanar reformats were generated and reviewed. All CT scans are performed using dose optimization technique as appropriate and may include automated exposure control or mA/KV adjustment according to patient size. FINDINGS: Partial improvement of aeration in the right lung base. Elevation of the right hemidiaphragm. New rounded pleural-based opacity in the peripheral basal left lower lobe, see image 32 axial series 201. Mild background central interstitial prominence. No pleural thickening. Small layering pleural effusions. . No pneumothorax. Pronounced cardiomegaly with mild to moderate pericardial effusion. Left chest wall pacer/ AICD in place. Prominent caliber of the main pulmonary artery, which may relate to pulmonary hypertension. No abnormal mediastinal or hilar masses or lymphadenopathy seen. No significant aortic or pulmonary artery findings. Assessment is limited in the absence of IV contrast. No chest wall mass or abnormal axillary lymphadenopathy. Evaluation of the solid abdominal structures reveals no suspicious findings. IMPRESSION: Pronounced cardiomegaly, mild central interstitial prominence, and prominent main pulmonary artery caliber, findings which suggest a degree of congestive heart failure, possibly with portal hypertension. Please correlate clinically. New rounded pleural-based opacity in the peripheral basal left lower lobe, could relate to atelectasis or early airspace disease. Improving aeration in the right lung base with probable residual atelectasis. Small bilateral pleural effusions are noted. Conclusions/Impression: Stage I MAY likely multifactorial complicated by episodic hypotension CKD III with Proteinuria -No NSAIDs Microscopic Hematuria, persisent -Consider urology evaluation Hyponatremia, resolved Hypotension -Continue Midodrine Systolic CHF, chronic LVEF 33% -Low sodium diet -Daily weight IFG A1C 5.9 -No sugar diet Moderate Hypoalbuminemia/ Protein Malnutrition Decreased functional ability with Multiple Wounds -Continue Romero -PT as tolerated Anemia in chronic illness -Monitor H&H
[2023-03-05] MEDS: ALBUTEROL 2.5 MG/3 ML NEB SOL NEB SCH ×4 (02:00→20:50)
[2023-03-05] MEDS: IPRATROPIUM BROM 0.5MG/2.5ML NEB SCH ×4 (02:00→20:50)
[2023-03-05 04:54] LABS: Albumin 2.6 g/dL (3.4-5.0); Bilirubin Total 1.2 mg/dL (0.2-1.0); Magnesium 1.8 mg/dL (1.6-2.4); Potassium 4.6 mEq/L (3.5-5.1); Protein, Total 6.1 g/dL (6.4-8.2)
[2023-03-05] MEDS ORDERED: MAGNESIUM SULFATE 1 gm IVPB 1 GM/100 ML BAG IV ONE (06:00)
--- NOTE | 2023-03-05 07:03 | P.PN ---
Date of Service: 03/05/23 Subjective: continues to have trouble breathing; +SOB on exertion needing moderate assistance with transfers per PT urine is dark bre afebrile ROS: 10 point ROS as noted above, otherwise negative Physical Exam: GEN: Alert, oriented, NAD, palmer in place HEENT: Normal conjunctiva, sclera anicteric CV: Regular rate & rhythm, no edema Pulm: mild labored respirations on room air, diminished bilaterally ABD: Soft, nontender, nondistended Integumentary: Superficial skin lesion on right lower leg - anterior tib area. Onychomycosis Neuro: Normal speech, normal affect, Abnormal strength (5/5 BUE, 5/5 RLE, 4/5 LLE) Palmer in place vitals reviewed Problem List: Suspected Septic Shock secondary to Left Lower Extremity Cellulitis with ESBL Escherichia Coli Bacteremia Subacute Left Parieto-Occipital CVA Syncope Dyslipidemia Paroxysmal Atrial Fibrillation with RVR - now in sinus rhythm History of DVT Acute on Chronic Decompensated Systolic Congestive Heart Failure s/p AICD - resolved Pulmonary Hypertension MAY Microscopic Hematuria suspect secondary to Traumatic Palmer Catheter Insertion Degenerative Joint Disease with Moderate L1-L4 Neural Foraminal Narrowing Bilateral Hip Arthritis Urolithiasis Stage II Sacral Pressure Ulcer - POA Stage I Left Heel Pressure Ulcer - POA Suspected Septic Shock secondary to Left Lower Extremity Cellulitis with ESBL Escherichia Coli Bacteremia SIRS: HR > 90, RR > 20, and WBC > 12k, lactate > 4, SBP <90 ID consulted Blood cultures: ESBL E. Coli intially on vancomycin/cefepime(02/26-03/01) switched to meropenem (03/01) continue meropenem (03/01-) x2 weeks per ID s/p PICC placement afebrile, no leukocytosis Subacute Left Parieto-Occipital CVA Syncope Dyslipidemia Neurology consulted ; NIHSS: 2 Unable to obtain MRI given AICD CT head/cervical spine(02/26): no acute traumatic intracranial or cervical spine findings. Left parieto-occipital region of hypoattenuation suggestive of a subacute infarct. Other sequelae of remote ischemia noted in the bilateral frontal regions. Carotid u/s (02/26): mild plaque within the carotid arteries without evidence of a hemodynamically significant stenosis. PT/OT consult aspirin, atorvastatin, folic acid likely unsafe for home and will need SNF Paroxysmal Atrial Fibrillation with RVR - now in sinus rhythm History of DVT Cardiology consulted amiodarone, apixaban Acute on Chronic Decompensated Systolic Congestive Heart Failure s/p AICD - resolved Pulmonary Hypertension CXR (02/26): stable right basal opacification and possible effusion. CT chest (02/26): pronounced cardiomegaly, mild central interstitial prominence, and prominent main pulmonary artery caliber, findings which suggest a degree of CHF, possibly with [pulmonary] hypertension. New rounded pleural-based opacity in the peripheral basal left lower lobe, could relate to atelectasis or early airspace disease. Improving aeration in the right lung base with probable residual atelectasis. Small bilateral pleural effusions are noted. TTE (December 2022): [id number]%, severe global hypokinesis, mild TR Cardiology consulted MAY Microscopic Hematuria suspect secondary to Traumatic Palmer Catheter Insertion Nephrology consulted UA: = 75 leukocyte esterase, 510 RBCs, 1020 WBCs, 1+ protein continue to monitor renal function improving Degenerative Joint Disease with Moderate L1-L4 Neural Foraminal Narrowing Bilateral Hip Arthritis Urolithiasis CT lumbar spine (02/26): no acute osseous abnormality. Please consider MRI follow-up for assessment of disc disease and neural involvement as clinically indicated. CT pelvis (02/26): no acute osseous abnormality of the bony pelvis. Degenerative changes of the PA joints worse on the right. Dependent radiodensities along the left aspect of the bladder may relate to gravel or small calculi. f/u with PCP as an outpatient may benefit from urology consult VTE: Eliquis Code: Full Dispo: Home with home health vs SNF pending further clinical improvement
[2023-03-05] MEDS: MIDODRINE HCL 5 MG TABLET PO SCH ×3 (08:09→22:37)
[2023-03-05] MEDS: GABAPENTIN 100 MG CAP PO SCH ×2 (08:09→22:37)
[2023-03-05] MEDS: Meropenem 500 MG in NA CHLORIDE 0.9% 100 ML IV SCH ×2 (08:09→22:36)
[2023-03-05] MEDS: FOLIC ACID 1 MG TABLET PO SCH (08:09)
[2023-03-05] MEDS: AMIODARONE HCL 200 MG TAB PO SCH ×2 (08:09→22:37)
[2023-03-05] MEDS: ASPIRIN 81 MG CHEWABLE TABLET PO SCH (08:09)
[2023-03-05] MEDS: APIXABAN 5 MG TABLET PO SCH ×2 (08:09→22:37)
[2023-03-05] MEDS: JUVEN PACKET PO SCH ×2 (09:00→21:00)
--- NOTE | 2023-03-05 09:08 | P.PN ---
Date of Service: 03/05/23 Chief Complaint: Syncope, A-fib with RVR, for Subjective: No new changes. Patient in bed, on 2L NC. +SOB with exertion. No acute events reported overnight. Physical Examination Temp Pulse Resp BP Pulse Ox 98.2 F 81 17 137/80 95 03/05/23 08:00 03/05/23 08:00 03/05/23 08:00 03/05/23 08:00 03/05/23 08:00 General: Alert, In no apparent distress, Oriented x2-3 HEENT: Atraumatic, Normocephalic. Missing teeth. Neck: Supple, JVD not distended Respiratory: Normal air movement. On intermittent nasal cannula 1-2LPM. Cardiovascular: No edema,irregular rhythm. Gastrointestinal: Normal bowel sounds, Soft and benign Musculoskeletal: No clubbing, No swelling Integumentary: Superficial skin lesion on right lower leg fallon. Onychomycosis noted Urinary: Rojas catheter draining bre colored urine with sediment noted. Laboratory Data - Reviewed Microbiology Data - Reviewed Imagings Data: -CT Chest 02/26: "Pronounced cardiomegaly, mild central interstitial prominence, and prominent main pulmonary artery caliber, findings which suggest a degree of congestive heart failure, possibly with portal hypertension. Please correlate cl inically. New rounded pleural-based opacity in the peripheral basal left lower lobe, could relate to atelectasis or early airspace disease. Improving aeration in the right lung base with probable residual atelectasis. Small bilateral pleural effusions are noted." - CT Head/Cervical Spine 02/26: "No acute traumatic intracranial or cervical spine findings. Left parieto-occipital region of hypoattenuation suggestive of a subacute infarct. Other sequelae of remote ischemia noted in the bilateral frontal regions." - CT Lumbar Spine 02/26: "No acute osseous abnormality." Medication List: Reviewed Assessment and Plan Problem List Hypertension Hyperlipidemia Congestive Heart Failure Atrial fibrillation with RVR Severe Sepsis Cellulitis Syncope Anemia Severe PCM * Allergies: Sulfa, Trimethoprim, Penicillins * E.coli ESBL Bacteremia Severe Sepsis, resolved - Blood cultures 02/26: Escherichia coli ESBL - Wound culture leg 02/26: mixed armand - Urine culture 02/28: <10,000 CFU/mL - Leukocytosis resolved (WBC 8.4). Afebrile - Previously on Cefepime and Vancomycin (02/26-03/01) - Currently on Meropenem (started 03/01) Chris with RVR: Cardiology on case Recommendations - E.coli ESBL bacteremia: Continue Meropenem for 2 weeks. - Patient was initially started on Cefepime and Vancomycin 02/26, switched to Meropenem on 03/01. - PICC line in place - Continue supportive care and nutritional support as needed. ID will follow up with patient as needed. Case discussed with Prasad Gomez
--- NOTE | 2023-03-05 10:47 | RAD REPORT ---
EXAM DESCRIPTION: Zaid Single View03/05/2023 9:47 am CLINICAL HISTORY: Shortness of breath COMPARISON: March 04, 2023 FINDINGS: [id number] bilateral pulmonary opacities. Mild improvement in right and mild worseni ng in left pulmonary opacities Marked cardiomegaly. Pacemaker leads in place IMPRESSION: These findings likely indicate CHF.
--- NOTE | 2023-03-05 21:46 | P.PN ---
Date of Service: 03/05/23 Vital Signs Temp Pulse Resp BP Pulse Ox 97.6 F 74 20 119/70 93 03/05/23 20:00 03/05/23 20:00 03/05/23 20:00 03/05/23 20:00 03/05/23 20:00 Medications Acetaminophen (Acetaminophen 325 Mg Tablet) 650 mg PO Q6H PRN PRN Reason: TEMP > 100.4' F Last Admin: 03/04/23 13:49 Dose: 650 mg Albuterol Sulfate (Albuterol 2.5 Mg/3 Ml [place]) 2.5 mg NEB [id number] [facility] Last Admin: 03/05/23 14:50 Dose: 2.5 mg Amiodarone HCl (Amiodarone Hcl 200 Mg Tab) 200 mg PO BID [facility] Last Admin: 03/05/23 08:09 Dose: 200 mg Apixaban (Apixaban 5 Mg Tablet) 5 mg PO BID [facility] Last Admin: 03/05/23 08:09 Dose: 5 mg Aspirin (Aspirin 81 Mg Chewable Tablet) 81 mg PO DAILY [facility] Last Admin: 03/05/23 08:09 Dose: 81 mg Atorvastatin Calcium (Atorvastatin 40 Mg Tab) 40 mg PO BEDTIME [facility] Last Admin: 03/04/23 20:10 Dose: 40 mg Benzonatate (Benzonatate 100 Mg Cap) 100 mg PO TID PRN PRN Reason: COUGH Last Admin: 03/04/23 02:26 Dose: 100 mg Calcium Carbonate/Glycine (Calcium Carbonate Chew 500mg Tab) 500 mg PO BID PRN PRN Reason: INDIGESTION Last Admin: 03/04/23 20:10 Dose: 500 mg Folic Acid (Folic Acid 1 Mg Tablet) 1 mg PO DAILY [facility] Last Admin: 03/05/23 08:09 Dose: 1 mg Gabapentin (Gabapentin 100 Mg Cap) 100 mg PO BID [facility] Last Admin: 03/05/23 08:09 Dose: 100 mg Meropenem 500 mg/ Sodium (Chloride) 100 mls @ 200 mls/hr IV Q12HR [facility]; Protocol Last Admin: 03/05/23 08:09 Dose: 100 mls Ipratropium [place] (Ipratropium Brom 0.5mg/2.5ml) 0.5 mg NEB [id number] [facility] Last Admin: 03/05/23 14:50 Dose: 0.5 mg L-Arginine/L-Glutamine/HMB (Romero Packet) 1 pkt PO BID [facility] Last Admin: 03/05/23 09:00 Dose: Not Given Melatonin (Melatonin 3 Mg Tablet) 3 mg PO BEDTIME PRN PRN PRN Reason: INSOMNIA Last Admin: 03/04/23 00:27 Dose: 3 mg Midodrine (Midodrine Hcl 5 Mg Tablet) 5 mg PO TID [facility] Last Admin: 03/05/23 13:25 Dose: 5 mg Nutritional Formula (Ensure Enlive 237 Ml Can) 237 ml PO BID [facility] Ondansetron HCl (Ondansetron 4 Mg/2 Ml Vial) 4 mg IV Q6HP PRN PRN Reason: NAUSEA / VOMITING Sodium Chloride (Flush Normal Saline 10 Ml) 10 ml IV BID [facility] Last Admin: 03/05/23 08:10 Dose: 10 ml Microbiology Results 02/26/23 13:35 Blood - Blood Aerobic Blood Culture - Final Escherichia Coli Esbl 02/26/23 13:35 Blood - Blood Blood Culture Gram Stain - Final 02/26/23 13:35 Blood - Blood Anaerobic Blood Culture - Final 02/26/23 13:50 Blood - Blood Aerobic Blood Culture - Final Escherichia Coli Esbl 02/26/23 13:50 Blood - Blood Blood Culture Gram Stain - Final 02/26/23 13:50 Blood - Blood Anaerobic Blood Culture - Final Assessment/ Plan: Nephrology No dyspnea No chest pain Fatigue No acute events overnight Vitals, medications, blood work and imaging reviewed in the chart. General: In no apparent distress, Cooperative HEENT: Atraumatic Neck: Supple Respiratory: Normal air movement Cardiovascular: Regular rate/rhythm, Edema Gastrointestinal: Soft and benign, Non-distended Musculoskeletal: No clubbing, No contractures Integumentary: No cyanosis, Skin lesion Neurological: Normal speech Blood work reviewed in the chart Imagings Data: EXAM DESCRIPTION: RADChest Single View02/28/2023 11:08 am CLINICAL HISTORY: PICC line placment COMPARISON: Chest Single View dated 02/28/2023; Chest Single View dated 02/26/2023; Chest Single View dated 12/26/2022; Chest Single View dated 12/22/2022; Thorax Wo Con dated 02/26/2023 TECHNIQUE: Portable AP view of the chest. FINDINGS: PICC line has been retracted, its tip now projects over the superior cavoatrial junction. Stable cardiomegaly and right basilar opacification. No pneumothorax or effusion. The mediastinal contours are unremarkable. IMPRESSION: Interval retraction of the right arm PICC as above. EXAM DESCRIPTION: CT - Thorax Wo Con - 02/26/2023 8:36 pm CLINICAL HISTORY: R O PNA COMPARISON: Chest Abd Pelvis Wo Con dated 12/17/2022; Chest Single View dated 02/26/2023 TECHNIQUE: Axial thin cut images of the chest were obtained without IV contrast. Multiplanar reformats were generated and reviewed. All CT scans are performed using dose optimization technique as appropriate and may include automated exposure control or mA/KV adjustment according to patient size. FINDINGS: Partial improvement of aeration in the right lung base. Elevation of the right hemidiaphragm. New rounded pleural-based opacity in the peripheral basal left lower lobe, see image 32 axial series 201. Mild background central interstitial prominence. No pleural thickening. Small layering pleural effusions. . No pneumothorax. Pronounced cardiomegaly with mild to moderate pericardial effusion. Left chest wall pacer/ AICD in place. Prominent caliber of the main pulmonary artery, which may relate to pulmonary hypertension. No abnormal mediastinal or hilar masses or lymphadenopathy seen. No significant aortic or pulmonary artery findings. Assessment is limited in the absence of IV contrast. No chest wall mass or abnormal axillary lymphadenopathy. Evaluation of the solid abdominal structures reveals no suspicious findings. IMPRESSION: Pronounced cardiomegaly, mild central interstitial prominence, and p rominent main pulmonary artery caliber, findings which suggest a degree of congestive heart failure, possibly with portal hypertension. Please correlate clinically. New rounded pleural-based opacity in the peripheral basal left lower lobe, could relate to atelectasis or early airspace disease. Improving aeration in the right lung base with probable residual atelectasis. Small bilateral pleural effusions are noted. Conclusions/Impression: Stage I MAY likely multifactorial complicated by episodic hypotension CKD III with Proteinuria -No NSAIDs Microscopic Hematuria, persisent -Consider urology evaluation Hyponatremia, resolved Hypotension -Continue Midodrine Systolic CHF, chronic LVEF 33% -Low sodium diet -Daily weight IFG A1C 5.9 -No sugar diet Moderate Hypoalbuminemia/ Protein Malnutrition Decreased functional ability with Multiple Wounds -Continue Romero -PT as tolerated Anemia in chronic illness -Monitor H&H
[2023-03-05] MEDS: ATORVASTATIN 40 MG TAB PO SCH (22:37)
[2023-03-05] MEDS: ENSURE ENLIVE 237 ML CAN PO SCH (22:38)
[2023-03-06] MEDS: ALBUTEROL 2.5 MG/3 ML NEB SOL NEB SCH ×4 (02:00→20:00)
[2023-03-06] MEDS: IPRATROPIUM BROM 0.5MG/2.5ML NEB SCH ×4 (02:00→20:00)
[2023-03-06 06:09] LABS: Magnesium 2.1 mg/dL (1.6-2.4); Potassium 4.5 mEq/L (3.5-5.1)
--- NOTE | 2023-03-06 06:56 | P.PN ---
Date of Service: 03/06/23 Subjective: continues to have trouble breathing, ~unchanged; +SOB on exertion ambulated to restroom with nurse yesterday urine bre in color afebrile ROS: 10 point ROS as noted above, otherwise negative Physical Exam: GEN: Alert, oriented, palmer in place HEENT: Normal conjunctiva, sclera anicteric CV: Regular rate & rhythm, trace edema Pulm: mild labored respirations on room air, diminished bilaterally ABD: Soft, nontender, nondistended Integumentary: Superficial skin lesion on right lower leg - anterior tib area. Onychomycosis Neuro: Normal speech, normal affect, Abnormal strength (5/5 BUE, 5/5 RLE, 4/5 LLE) Palmer in place vitals reviewed Problem List: Suspected Septic Shock secondary to Left Lower Extremity Cellulitis with ESBL Escherichia Coli Bacteremia Subacute Left Parieto-Occipital CVA Syncope Dyslipidemia Paroxysmal Atrial Fibrillation with RVR - now in sinus rhythm History of DVT Acute on Chronic Decompensated Systolic Congestive Heart Failure s/p AICD - resolved Pulmonary Hypertension MAY Microscopic Hematuria suspect secondary to Traumatic Palmer Catheter Insertion Degenerative Joint Disease with Moderate L1-L4 Neural Foraminal Narrowing Bilateral Hip Arthritis Urolithiasis Stage II Sacral Pressure Ulcer - POA Stage I Left Heel Pressure Ulcer - POA Suspected Septic Shock secondary to Left Lower Extremity Cellulitis with ESBL Escherichia Coli Bacteremia SIRS: HR > 90, RR > 20, and WBC > 12k, lactate > 4, SBP <90 ID consulted Blood cultures: ESBL E. Coli intially on vancomycin/cefepime(02/26-03/01) switched to meropenem (03/01) continue meropenem (03/01- ~03/15) x2 weeks per ID s/p PICC placement afebrile, no leukocytosis Subacute Left Parieto-Occipital CVA Syncope Dyslipidemia Neurology consulted; NIHSS: 2 Unable to obtain MRI given AICD CT head/cervical spine(02/26): no acute traumatic intracranial or cervical spine findings. Left parieto-occipital region of hypoattenuation suggestive of subacute infarct. Other sequelae of remote ischemia noted in the bilateral frontal regions. Carotid u/s (02/26): mild plaque within the carotid arteries without evidence of a hemodynamically significant stenosis. PT/OT consulted aspirin, atorvastatin, folic acid likely unsafe for home and will need SNF - IV antibiotics and PT Paroxysmal Atrial Fibrillation with RVR - now in sinus rhythm History of DVT Cardiology consulted amiodaronevirgil Acute on Chronic Decompensated Systolic Congestive Heart Failure s/p AICD - improving Pulmonary Hypertension CXR (02/26): stable right basal opacification and possible effusion. CT chest (02/26): pronounced cardiomegaly, mild central interstitial prominence, and prominent main pulmonary artery caliber, findings which suggest a degree of CHF, possibly with [pulmonary] hypertension. New rounded pleural-based opacity in the peripheral basal left lower lobe, could relate to atelectasis or early airspace disease. Improving aeration in the right lung base with probable residual atelectasis. Small bilateral pleural effusions are noted. CXR (03/05): [id number] bilateral pulmonary opacities. Mild improvement in right and mild worsening in left pulmonary opacities TTE (December 2022): [id number]%, severe global hypokinesis, mild TR Cardiology consulted UOP seems to be decreasing, possibly intravascularly depleted, will discuss with nephrology MAY Microscopic Hematuria suspect secondary to Traumatic Palmer Catheter Insertion Nephrology consulted UA: = 75 leukocyte esterase, 510 RBCs, 1020 WBCs, 1+ protein continue to monitor renal function improving Degenerative Joint Disease with Moderate L1-L4 Neural Foraminal Narrowing Bilateral Hip Arthritis Urolithiasis CT lumbar spine (02/26): no acute osseous abnormality. Please consider MRI follow-up for assessment of disc disease and neural involvement as clinically indicated. CT pelvis (02/26): no acute osseous abnormality of the bony pelvis. Degenerative changes of the PA joints worse on the right. Dependent radiodensities along the left aspect of the bladder may relate to gravel or small calculi. f/u with PCP as an outpatient may benefit from urology consult VTE: Eliquis Code: Full Dispo: SNF, ~2 days ss/cm consulted, agreeable to SNF, prefers [facility] pending further clinical improvement - respirations/UOP
[2023-03-06 08:02] LABS: Albumin 2.3 g/dL (3.4-5.0); Bilirubin Direct 0.5 mg/dL (0-0.2); Bilirubin Indirect, Calculated 0.6 mg/dL (0.2-0.8); Bilirubin Total 1.1 mg/dL (0.2-1.0); Protein, Total 5.5 g/dL (6.4-8.2)
[2023-03-06 08:47] LABS: Absolute Lymphocytes (CBC) 0.9 K/uL (0.7-4.9); Hematocrit 35.3 % (36.0-45.0); Lymphocytes % 11.9 % (15.3-44.8); MCV 87.6 fL (80-100); MPV 9.8 fL (7.6-11.3); RBC Red Blood Cell Count 4.03 M/uL (3.86-4.86)
[2023-03-06] MEDS: JUVEN PACKET PO SCH ×2 (09:00→21:00)
[2023-03-06] MEDS: Meropenem 500 MG in NA CHLORIDE 0.9% 100 ML IV SCH ×2 (09:51→21:25)
[2023-03-06] MEDS: GABAPENTIN 100 MG CAP PO SCH ×2 (09:52→21:25)
[2023-03-06] MEDS: ASPIRIN 81 MG CHEWABLE TABLET PO SCH (09:52)
[2023-03-06] MEDS: FOLIC ACID 1 MG TABLET PO SCH (09:52)
[2023-03-06] MEDS: AMIODARONE HCL 200 MG TAB PO SCH ×2 (09:53→21:25)
[2023-03-06] MEDS: APIXABAN 5 MG TABLET PO SCH ×2 (09:53→21:25)
[2023-03-06] MEDS: MIDODRINE HCL 5 MG TABLET PO SCH ×3 (09:53→21:25)
[2023-03-06] MEDS: ENSURE ENLIVE 237 ML CAN PO SCH ×2 (09:59→21:28)
--- NOTE | 2023-03-06 10:10 | P.PN ---
Date of Service: 03/06/23 Chief Complaint: Syncope, A-fib with RVR, for Subjective: No new changes. Improving. Patient ambulating with walker and physical therapy assistance. A&Ox3. NAD. Physical Examination Temp Pulse Resp BP Pulse Ox 97.3 F 73 17 112/63 97 03/06/23 08:00 03/06/23 08:00 03/06/23 08:00 03/06/23 08:00 03/06/23 08:00 General: Alert, In no apparent distress, Oriented x2-3 HEENT: Atraumatic, Normocephalic. Missing teeth. Neck: Supple, JVD not distended Respiratory: Normal air movement. On intermittent nasal cannula 1-2LPM. Cardiovascular: No edema,irregular rhythm. Gastrointestinal: Normal bowel sounds, Soft and benign Musculoskeletal: No clubbing, No swelling Integumentary: Superficial skin lesion on right lower leg fallon. Onychomycosis noted Urinary: Rojas catheter draining dark bre colored urine with sediment noted. Laboratory Data - Reviewed Microbiology Data - Reviewed Imagings Data: -CT Chest 02/26: "Pronounced cardiomegaly, mild central interstitial prominence, and prominent main pulmonary artery caliber, findings which suggest a degree of congestive heart failure, possibly with portal hypertension. Please correlate clinically. New rounded pleural-based opacity in the peripheral basal left lower lobe, could relate to atelectasis or early airspace disease. Improving aeration in the right lung base with probable residual atelectasis. Small bilateral pleural effusions are noted." - CT Head/Cervical Spine 02/26: "No acute traumatic intracranial or cervical spine findings. Left parieto-occipital region of hypoattenuation suggestive of a subacute infarct. Other sequelae of remote ischemia noted in the bilateral frontal regions." - CT Lumbar Spine 02/26: "No acute osseous abnormality." Medication List: Reviewed Assessment and Plan Problem List Hypertension Hyperlipidemia Congestive Heart Failure Atrial fibrillation with RVR Severe Sepsis Cellulitis Syncope Anemia Severe PCM * Allergies: Sulfa, Trimethoprim, Penicillins * E.coli ESBL Bacteremia Severe Sepsis, resolved - Blood cultures 02/26: Escherichia coli ESBL - Wound culture leg 02/26: Mixed armand - Urine culture 02/28: <10,000 CFU/mL - Leukocytosis resolved (WBC 7.8). Remains afebrile - Previously on Cefepime and Vancomycin (02/26-03/01) - Currently on Meropenem (started 03/01) A.sandy with RVR: Cardiology on case Recommendations - E.coli ESBL bacteremia: Continue Meropenem for 2 weeks. - Patient was initially started on Cefepime and Vancomycin 02/26, switched to Meropenem on 03/01. - Continue supportive care and nutritional support as needed. Pending insurance approval for [employer] [facility]. Case management following. ID will follow up with patient as needed. Case discussed with Prasad Gomez
[2023-03-06] MEDS: CALCIUM CARBONATE CHEW 500MG TAB PO PRN (13:55)
--- NOTE | 2023-03-06 21:11 | P.PN ---
Date of Service: 03/06/23 Vital Signs Temp Pulse Resp BP Pulse Ox 97.5 F 75 18 121/78 96 03/06/23 20:00 03/06/23 20:00 03/06/23 20:00 03/06/23 20:00 03/06/23 20:00 Medications Acetaminophen (Acetaminophen 325 Mg Tablet) 650 mg PO Q6H PRN PRN Reason: TEMP > 100.4' F Last Admin: 03/04/23 13:49 Dose: 650 mg Albuterol Sulfate (Albuterol 2.5 Mg/3 Ml [place]) 2.5 mg NEB [id number] [facility] Last Admin: 03/06/23 14:30 Dose: 2.5 mg Amiodarone HCl (Amiodarone Hcl 200 Mg Tab) 200 mg PO BID [facility] Last Admin: 03/06/23 09:53 Dose: 200 mg Apixaban (Apixaban 5 Mg Tablet) 5 mg PO BID [facility] Last Admin: 03/06/23 09:53 Dose: 5 mg Aspirin (Aspirin 81 Mg Chewable Tablet) 81 mg PO DAILY [facility] Last Admin: 03/06/23 09:52 Dose: 81 mg Atorvastatin Calcium (Atorvastatin 40 Mg Tab) 40 mg PO BEDTIME [facility] Last Admin: 03/05/23 22:37 Dose: 40 mg Benzonatate (Benzonatate 100 Mg Cap) 100 mg PO TID PRN PRN Reason: COUGH Last Admin: 03/04/23 02:26 Dose: 100 mg Calcium Carbonate/Glycine (Calcium Carbonate Chew 500mg Tab) 500 mg PO BID PRN PRN Reason: INDIGESTION Last Admin: 03/06/23 13:55 Dose: 500 mg Folic Acid (Folic Acid 1 Mg Tablet) 1 mg PO DAILY [facility] Last Admin: 03/06/23 09:52 Dose: 1 mg Gabapentin (Gabapentin 100 Mg Cap) 100 mg PO BID [facility] Last Admin: 03/06/23 09:52 Dose: 100 mg Meropenem 500 mg/ Sodium (Chloride) 100 mls @ 200 mls/hr IV Q12HR [facility]; Protocol Last Admin: 03/06/23 09:51 Dose: 100 mls Ipratropium [place] (Ipratropium Brom 0.5mg/2.5ml) 0.5 mg NEB [id number] [facility] Last Admin: 03/06/23 14:30 Dose: 0.5 mg L-Arginine/L-Glutamine/HMB (Romero Packet) 1 pkt PO BID [facility] Last Admin: 03/06/23 09:00 Dose: Not Given Melatonin (Melatonin 3 Mg Tablet) 3 mg PO BEDTIME PRN PRN PRN Reason: INSOMNIA Last Admin: 03/04/23 00:27 Dose: 3 mg Midodrine (Midodrine Hcl 5 Mg Tablet) 5 mg PO TID [facility] Last Admin: 03/06/23 13:55 Dose: 5 mg Nutritional Formula (Ensure Enlive 237 Ml Can) 237 ml PO BID [facility] Last Admin: 03/06/23 09:59 Dose: 237 ml Ondansetron HCl (Ondansetron 4 Mg/2 Ml Vial) 4 mg IV Q6HP PRN PRN Reason: NAUSEA / VOMITING Sodium Chloride (Flush Normal Saline 10 Ml) 10 ml IV BID [facility] Last Admin: 03/06/23 09:59 Dose: 10 ml Microbiology Results 02/26/23 13:35 Blood - Blood Aerobic Blood Culture - Final Escherichia Coli Esbl 02/26/23 13:35 Blood - Blood Blood Culture Gram Stain - Final 02/26/23 13:35 Blood - Blood Anaerobic Blood Culture - Final 02/26/23 13:50 Blood - Blood Aerobic Blood Culture - Final Escherichia Coli Esbl 02/26/23 13:50 Blood - Blood Blood Culture Gram Stain - Final 02/26/23 13:50 Blood - Blood Anaerobic Blood Culture - Final Assessment/ Plan: Nephrology No dyspnea No chest pain Fatigue and weakness No acute events overnight Vitals, medications, blood work and imaging reviewed in the chart. General: In no apparent distress, Cooperative HEENT: Atraumatic Neck: Supple Respiratory: Normal air movement Cardiovascular: Regular rate/rhythm, Edema Gastrointestinal: Soft and benign, Non-distended Musculoskeletal: No clubbing, No contractures Integumentary: No cyanosis, Skin lesion Neurological: Normal speech Rojas dark Blood work reviewed in the chart Imagings Data: EXAM DESCRIPTION: RADChest Single View02/28/2023 11:08 am CLINICAL HISTORY: PICC line placment COMPARISON: Chest Single View dated 02/28/2023; Chest Single View dated 02/26/2023; Chest Single View dated 12/26/2022; Chest Single View dated 12/22/2022; Thorax Wo Con dated 02/26/2023 TECHNIQUE: Portable AP view of the chest. FINDINGS: PICC line has been retracted, its tip now projects over the superior cavoatrial junction. Stable cardiomegaly and right basilar opacification. No pneumothorax or effusion. The mediastinal contours are unremarkable. IMPRESSION: Interval retraction of the right arm PICC as above. EXAM DESCRIPTION: CT - Thorax Wo Con - 02/26/2023 8:36 pm CLINICAL HISTORY: R O PNA COMPARISON: Chest Abd Pelvis Wo Con dated 12/17/2022; Chest Single View dated 02/26/2023 TECHNIQUE: Axial thin cut images of the chest were obtained without IV contrast. Multiplanar reformats were generated and reviewed. All CT scans are performed using dose optimization technique as appropriate and may include automated exposure control or mA/KV adjustment according to patient size. FINDINGS: Partial improvement of aeration in the right lung base. Elevation of the right hemidiaphragm. New rounded pleural-based opacity in the peripheral basal left lower lobe, see image 32 axial series 201. Mild background central interstitial prominence. No pleural thickening. Small layering pleural effusions. . No pneumothorax. Pronounced cardiomegaly with mild to moderate pericardial effusion. Left chest wall pacer/ AICD in place. Prominent caliber of the main pulmonary artery, which may relate to pulmonary hypertension. No abnormal mediastinal or hilar masses or lymphadenopathy seen. No significant aortic or pulmonary artery findings. Assessment is limited in the absence of IV contrast. No chest wall mass or abnormal axillary lymphadenopathy. Evaluation of the solid abdominal structures reveals no suspicious findings. IMPRESSION: Pronounced cardiomegaly, mild central interstitial prominence, and prominent main pulmonary artery caliber, findings which suggest a degree of congestive heart failure, possibly with portal hypertension. Please correlate clinically. New rounded pleural-based opacity in the peripheral basal left lower lobe, could relate to atelectasis or early airspace disease. Improving aeration in the right lung base with probable residual atelectasis. Small bilateral pleural effusions are noted. Conclusions/Impression: Stage I MAY likely multifactorial complicated by episodic hypotension CKD III with Proteinuria -No NSAIDs Microscopic Hematuria, persisent -Consider urology evaluation Hyponatremia, resolved Hypotension -Continue Midodrine Systolic CHF, chronic LVEF 33% -Low sodium diet -Daily weight IFG A1C 5.9 -No sugar diet Moderate Hypoalbuminemia/ Protein Malnutrition Decreased functional ability with Multiple Wounds -Continue Romero -PT as tolerated Anemia in chronic illness -Monitor H&H
[2023-03-06] MEDS: ATORVASTATIN 40 MG TAB PO SCH (21:24)
[2023-03-07] MEDS: MELATONIN 3 MG TABLET PO PRN (00:09)
[2023-03-07] MEDS: CALCIUM CARBONATE CHEW 500MG TAB PO PRN (00:09)
[2023-03-07] MEDS: ACETAMINOPHEN 325 MG TABLET PO PRN (00:20)
[2023-03-07] MEDS: IPRATROPIUM BROM 0.5MG/2.5ML NEB SCH ×4 (02:00→20:00)
[2023-03-07] MEDS: ALBUTEROL 2.5 MG/3 ML NEB SOL NEB SCH ×4 (02:00→20:00)
[2023-03-07 05:05] LABS: Absolute Lymphocytes (CBC) 1.1 K/uL (0.7-4.9); Hematocrit 32.7 % (36.0-45.0); Lymphocytes % 15.3 % (15.3-44.8); MCV 88.2 fL (80-100); MPV 9.6 fL (7.6-11.3)
[2023-03-07 05:20] LABS: Albumin 2.3 g/dL (3.4-5.0); Bilirubin Total 0.7 mg/dL (0.2-1.0); Magnesium 2.1 mg/dL (1.6-2.4); Potassium 4.4 mEq/L (3.5-5.1); Protein, Total 5.5 g/dL (6.4-8.2)
[2023-03-07] MEDS: ENSURE ENLIVE 237 ML CAN PO SCH ×2 (09:00→20:53)
[2023-03-07] MEDS: JUVEN PACKET PO SCH ×2 (09:00→20:53)
[2023-03-07] MEDS: APIXABAN 5 MG TABLET PO SCH ×2 (09:31→20:52)
[2023-03-07] MEDS: ASPIRIN 81 MG CHEWABLE TABLET PO SCH (09:31)
[2023-03-07] MEDS: AMIODARONE HCL 200 MG TAB PO SCH ×2 (09:31→20:52)
[2023-03-07] MEDS: FOLIC ACID 1 MG TABLET PO SCH (09:31)
[2023-03-07] MEDS: GABAPENTIN 100 MG CAP PO SCH ×2 (09:31→20:52)
[2023-03-07] MEDS: MIDODRINE HCL 5 MG TABLET PO SCH ×3 (09:31→21:03)
--- NOTE | 2023-03-07 09:46 | P.PN ---
Date of Service: 03/07/23 Chief Complaint: Syncope, A-fib with RVR, for Subjective: Improving. Patient sitting in chair, not in distress. Denies any new or worsening complaints. Physical Examination Temp Pulse Resp BP Pulse Ox 97.8 F 62 17 111/60 92 03/07/23 08:00 03/07/23 08:00 03/07/23 08:00 03/07/23 08:00 03/07/23 08:00 General: Alert, In no apparent distress, Oriented x2-3 HEENT: Atraumatic, Normocephalic. Missing teeth. Neck: Supple, JVD not distended Respiratory: Normal air movement. On 2L NC. Cardiovascular: No edema,irregular rhythm. Gastrointestinal: Normal bowel sounds, Soft and benign Musculoskeletal: No clubbing, No swelling. kyphosis Integumentary: No rashes. Onychomycosis. Urinary: Rojas catheter draining dark bre colored urine. Laboratory Data - Reviewed Microbiology Data - Reviewed Imagings Data: -CT Chest 02/26: "Pronounced cardiomegaly, mild central interstitial prominence, and prominent main pulmonary artery caliber, findings which suggest a degree of congestive heart failure, possibly with portal hypertension. Please correlate clinically. New rounded pleural-based opacity in the peripheral basal left lower lobe, could relate to atelectasis or early airspace disease. Improving aeration in the right lung base with probable residual atelectasis. Small bilateral pleural effusions are noted." - CT Head/Cervical Spine 02/26: "No acute traumatic intracranial or cervical spine findings. Left parieto-occipital region of hypoattenuation suggestive of a subacute infarct. Other sequelae of remote ischemia noted in the bilateral frontal regions." - CT Lumbar Spine 02/26: "No acute osseous abnormality." Medication List: Reviewed Assessment and Plan Problem List Hypertension Hyperlipidemia Congestive Heart Failure Atrial fibrillation with RVR Severe Sepsis Cellulitis Syncope Anemia Severe PCM * Allergies: Sulfa, Trimethoprim, Penicillins * E.coli ESBL Bacteremia Severe Sepsis, resolved - Blood cultures 02/26: Escherichia coli ESBL - Wound culture leg 02/26: Mixed armand - Urine culture 02/28: <10,000 CFU/mL - Leukocytosis resolved (WBC 7.8). Remains afebrile - Previously on Cefepime and Vancomycin (02/26-03/01) - Currently on Meropenem (started 03/01) Recommendations Continue current plan of care - E.coli ESBL bacteremia: Continue Meropenem for 2 weeks. - Patient was initially started on Cefepime and Vancomycin 02/26, switched to Meropenem on 03/01. - Continue supportive care and nutritional support as needed. - Physical therapy Pending insurance approval for [employer] [facility]. Case management following. ID will follow up with patient as needed. Case discussed with Prasad Gomez
[2023-03-07] MEDS: Meropenem 500 MG in NA CHLORIDE 0.9% 100 ML IV SCH ×2 (10:31→20:52)
[2023-03-07] MEDS: ATORVASTATIN 40 MG TAB PO SCH (20:52)
--- NOTE | 2023-03-07 21:59 | P.PN ---
Date of Service: 03/07/23 Vital Signs Temp Pulse Resp BP Pulse Ox 98.0 F 77 18 110/68 98 03/07/23 20:00 03/07/23 20:00 03/07/23 20:00 03/07/23 20:00 03/07/23 20:00 Medications Acetaminophen (Acetaminophen 325 Mg Tablet) 650 mg PO Q6H PRN PRN Reason: Pain scale 2-4 (Mild) Last Admin: 03/07/23 00:20 Dose: 650 mg Albuterol Sulfate (Albuterol 2.5 Mg/3 Ml [place]) 2.5 mg NEB [id number] [facility] Last Admin: 03/07/23 20:00 Dose: 2.5 mg Amiodarone HCl (Amiodarone Hcl 200 Mg Tab) 200 mg PO BID [facility] Last Admin: 03/07/23 20:52 Dose: 200 mg Apixaban (Apixaban 5 Mg Tablet) 5 mg PO BID [facility] Last Admin: 03/07/23 20:52 Dose: 5 mg Aspirin (Aspirin 81 Mg Chewable Tablet) 81 mg PO DAILY [facility] Last Admin: 03/07/23 09:31 Dose: 81 mg Atorvastatin Calcium (Atorvastatin 40 Mg Tab) 40 mg PO BEDTIME [facility] Last Admin: 03/07/23 20:52 Dose: 40 mg Benzonatate (Benzonatate 100 Mg Cap) 100 mg PO TID PRN PRN Reason: COUGH Last Admin: 03/04/23 02:26 Dose: 100 mg Calcium Carbonate/Glycine (Calcium Carbonate Chew 500mg Tab) 500 mg PO BID PRN PRN Reason: INDIGESTION Last Admin: 03/07/23 00:09 Dose: 500 mg Folic Acid (Folic Acid 1 Mg Tablet) 1 mg PO DAILY [facility] Last Admin: 03/07/23 09:31 Dose: 1 mg Gabapentin (Gabapentin 100 Mg Cap) 100 mg PO BID [facility] Last Admin: 03/07/23 20:52 Dose: 100 mg Meropenem 500 mg/ Sodium (Chloride) 100 mls @ 200 mls/hr IV Q12HR [facility]; Protocol Last Admin: 03/07/23 20:52 Dose: 100 mls Ipratropium [place] (Ipratropium Brom 0.5mg/2.5ml) 0.5 mg NEB [id number] [facility] Last Admin: 03/07/23 20:00 Dose: 0.5 mg L-Arginine/L-Glutamine/HMB (Romero Packet) 1 pkt PO BID [facility] Last Admin: 03/07/23 20:53 Dose: Not Given Melatonin (Melatonin 3 Mg Tablet) 3 mg PO BEDTIME PRN PRN PRN Reason: INSOMNIA Last Admin: 03/07/23 00:09 Dose: 3 mg Midodrine (Midodrine Hcl 5 Mg Tablet) 5 mg PO TID [facility] Last Admin: 03/07/23 21:03 Dose: 5 mg Nutritional Formula (Ensure Enlive 237 Ml Can) 237 ml PO BID [facility] Last Admin: 03/07/23 20:53 Dose: 237 ml Ondansetron HCl (Ondansetron 4 Mg/2 Ml Vial) 4 mg IV Q6HP PRN PRN Reason: NAUSEA / VOMITING Last Admin: 03/07/23 00:03 Dose: 4 mg Sodium Chloride (Flush Normal Saline 10 Ml) 10 ml IV BID [facility] Last Admin: 03/07/23 21:04 Dose: 10 ml Microbiology Results 02/26/23 13:35 Blood - Blood Aerobic Blood Culture - Final Escherichia Coli Esbl 02/26/23 13:35 Blood - Blood Blood Culture Gram Stain - Final 02/26/23 13:35 Blood - Blood Anaerobic Blood Culture - Final 02/26/23 13:50 Blood - Blood Aerobic Blood Culture - Final Escherichia Coli Esbl 02/26/23 13:50 Blood - Blood Blood Culture Gram Stain - Final 02/26/23 13:50 Blood - Blood Anaerobic Blood Culture - Final Assessment/ Plan: Nephrology No dyspnea No chest pain Fatigue and weakness No acute events overnight Vitals, medications, blood work and imaging reviewed in the chart. General: In no apparent distress, Cooperative HEENT: Atraumatic Neck: Supple Respiratory: Normal air movement Cardiovascular: Regular rate/rhythm, Edema Gastrointestinal: Soft and benign, Non-distended Musculoskeletal: No clubbing, No contractures Integumentary: No cyanosis, Skin lesion Neurological: Normal speech Rojas dark Blood work reviewed in the chart Imagings Data: EXAM DESCRIPTION: RADChest Single View02/28/2023 11:08 am CLINICAL HISTORY: PICC line placment COMPARISON: Chest Single View dated 02/28/2023; Chest Single View dated 02/26/2023; Chest Single View dated 12/26/2022; Chest Single View dated 12/22/2022; Thorax Wo Con dated 02/26/2023 TECHNIQUE: Portable AP view of the chest. FINDINGS: PICC line has been retracted, its tip now projects over the superior cavoatrial junction. Stable cardiomegaly and right basilar opacification. No pneumothorax or effusion. The mediastinal contours are unremarkable. IMPRESSION: Interval retraction of the right arm PICC as above. EXAM DESCRIPTION: CT - Thorax Wo Con - 02/26/2023 8:36 pm CLINICAL HISTORY: R O PNA COMPARISON: Chest Abd Pelvis Wo Con dated 12/17/2022; Chest Single View dated 02/26/2023 TECHNIQUE: Axial thin cut images of the chest were obtained without IV contrast. Multiplanar reformats were generated and reviewed. All CT scans are performed using dose optimization technique as appropriate and may include automated exposure control or mA/KV adjustment according to patient size. FINDINGS: Partial improvement of aeration in the right lung base. Elevation of the right hemidiaphragm. New rounded pleural-based opacity in the peripheral basal left lower lobe, see image 32 axial series 201. Mild background central interstitial prominence. No pleural thickening. Small layering pleural effusions. . No pneumothorax. Pronounced cardiomegaly with mild to moderate pericardial effusion. Left chest wall pacer/ AICD in place. Prominent caliber of the main pulmonary artery, which may relate to pulmonary hypertension. No abnormal mediastinal or hilar masses or lymphadenopathy seen. No significant aortic or pulmonary artery findings. Assessment is limited in the absence of IV contrast. No chest wall mass or abnormal axillary lymphadenopathy. Evaluation of the solid abdominal structures reveals no suspicious findings. IMPRESSION: Pronounced cardiomegaly, mild central interstitial prominence, and prominent main pulmonary artery caliber, findings which suggest a degree of congestive heart failure, possibly with portal hypertension. Please correlate clinically. New rounded pleural-based opacity in the peripheral basal left lower lobe, could relate to atelectasis or early airspace disease. Improving aeration in the right lung base with probable residual atelectasis. Small bilateral pleural effusions are noted. Conclusions/Impression: Stage I MAY likely multifactorial complicated by episodic hypotension CKD III with Proteinuria -No NSAIDs Microscopic Hematuria, persisent -Consider urology evaluation Hyponatremia, resolved Hypotension -Continue Midodrine Systolic CHF, chronic LVEF 33% -Low sodium diet -Daily weight IFG A1C 5.9 -No sugar diet Moderate Hypoalbuminemia/ Protein Malnutrition Decreased functional ability with Multiple Wounds -Continue Romero -PT as tolerated Anemia in chronic illness -Monitor H&H
[2023-03-08] MEDS: ALBUTEROL 2.5 MG/3 ML NEB SOL NEB SCH ×4 (02:00→19:10)
[2023-03-08] MEDS: IPRATROPIUM BROM 0.5MG/2.5ML NEB SCH ×4 (02:00→19:10)
[2023-03-08] MEDS: CALCIUM CARBONATE CHEW 500MG TAB PO PRN (07:14)
[2023-03-08] MEDS: ENSURE ENLIVE 237 ML CAN PO SCH ×2 (08:17→19:34)
[2023-03-08] MEDS: JUVEN PACKET PO SCH ×2 (08:18→19:34)
[2023-03-08] MEDS: Meropenem 500 MG in NA CHLORIDE 0.9% 100 ML IV SCH ×2 (08:18→20:15)
[2023-03-08] MEDS: APIXABAN 5 MG TABLET PO SCH ×2 (08:19→19:33)
[2023-03-08] MEDS: GABAPENTIN 100 MG CAP PO SCH ×2 (08:19→19:34)
[2023-03-08] MEDS: FOLIC ACID 1 MG TABLET PO SCH (08:19)
[2023-03-08] MEDS: AMIODARONE HCL 200 MG TAB PO SCH ×2 (08:19→19:33)
[2023-03-08] MEDS: MIDODRINE HCL 5 MG TABLET PO SCH ×3 (08:19→19:33)
[2023-03-08] MEDS: ASPIRIN 81 MG CHEWABLE TABLET PO SCH (08:19)
--- NOTE | 2023-03-08 11:59 | PN ---
Date of Progress Note: 03/08/2023 Subjective: Patient was seen and examined at bedside. She denies any new complaints. No overnight events were noted. Objective: Vital Signs: Have been reviewed and are stable. General: She appears in no acute distress. Lungs: Clear to auscultation. Abdomen: Soft and nontender. Extremities: With 2+ pitting edema noted in the lower extremities. Laboratory Data: Showing creatinine improving to 0.96, BUN of 42. CBC showing stable hemoglobin, he matocrit, and platelet count. Current Medications: Have been reviewed in detail. Impression: 1.Acute renal failure secondary to episodic hypotension currently with stable renal function. 2.Persistent microscopic hematuria likely secondary to traumatic Rojas, currently stable. 3.Hyponatremia secondary to hypovolemia has improved. 4.Chronic systolic heart failure, currently with the low-sodium diet. She also had some lower extre mity edema secondary to combination of congestive heart failure and secondary to malnutrition. Curre ntly, she is not on any diuretics, but she can possibly be resumed on p.o. Lasix and renal function c an be monitored closely to improve lower extremity edema. VV/MODL Voice ID: [id number] Report ID: [id number]
--- NOTE | 2023-03-08 15:58 | P.PN ---
Date of Service: 03/07/23 Subjective: Continues to do well and patient denies any new complaints. Her clinical symptoms are stable. At this time, will wait for swing bed placement. ROS: 10 point ROS as noted above, otherwise negative Physical Exam: Vitals: reviewed GEN: Alert, oriented, NAD CV: Regular rate & rhythm, no edema Pulm: Nonlabored respiraitons on 1L NC, diminished at bases b/l ABD: Soft, nontender, nondistended MSK: No joint tenderness Neuro: No focal deficits Problem List: 1. Suspected Septic Shock secondary to Left Lower Extremity Cellulitis with ESBL Escherichia Coli Bacteremia 2. Subacute Left Parieto-Occipital CVA 3. Syncope 4. Dyslipidemia 5. Paroxysmal Atrial Fibrillation with RVR - now in sinus rhythm 6. History of DVT 7. Acute on Chronic Decompensated Systolic Congestive Heart Failure s/p AICD - resolved 8. Pulmonary Hypertension 9. MAY 10. Microscopic Hematuria suspect secondary to Traumatic Rojas Catheter Insertion 11. Degenerative Joint Disease with Moderate L1-L4 Neural Foraminal Narrowing 12. Bilateral Hip Arthritis 13. Urolithiasis 14. Stage II Sacral Pressure Ulcer - POA 15. Stage I Left Heel Pressure Ulcer - POA PLAN: 1. Antibiotic therapy 2. Continue with antiplatelet therapy 3. Continue with statin therapy 4. Continue with medication for rate control and anticoagulation 5. Continue with cardiac meds 6. Monitor renal function closely 7. Physical therapy evaluation 8. Ambulate and get patient out of bed to a chair 9. Skin care and monitor for worsening pressure ulcers 10. GI DVT prophylaxis
[2023-03-08] MEDS: ATORVASTATIN 40 MG TAB PO SCH (19:34)
[2023-03-09] MEDS: ALBUTEROL 2.5 MG/3 ML NEB SOL NEB SCH ×4 (02:00→19:05)
[2023-03-09] MEDS: IPRATROPIUM BROM 0.5MG/2.5ML NEB SCH ×4 (02:00→19:05)
[2023-03-09] MEDS: ASPIRIN 81 MG CHEWABLE TABLET PO SCH (08:27)
[2023-03-09] MEDS: APIXABAN 5 MG TABLET PO SCH ×2 (08:27→20:23)
[2023-03-09] MEDS: AMIODARONE HCL 200 MG TAB PO SCH ×2 (08:27→20:23)
[2023-03-09] MEDS: MIDODRINE HCL 5 MG TABLET PO SCH ×3 (08:27→20:23)
[2023-03-09] MEDS: GABAPENTIN 100 MG CAP PO SCH ×2 (08:27→20:23)
[2023-03-09] MEDS: ENSURE ENLIVE 237 ML CAN PO SCH ×2 (08:28→20:24)
[2023-03-09] MEDS: FOLIC ACID 1 MG TABLET PO SCH (08:33)
[2023-03-09] MEDS: Meropenem 1,000 MG in NA CHLORIDE 0.9% 100 ML IV SCH ×2 (08:34→20:23)
[2023-03-09] MEDS: JUVEN PACKET PO SCH ×2 (08:37→20:22)
[2023-03-09] MEDS: ATORVASTATIN 40 MG TAB PO SCH (20:23)
--- NOTE | 2023-03-10 01:46 | P.PN ---
Date of Service: 03/09/23 Subjective: patient is doing well. Patient denies any new complaints. She is wanting to get out of bed into a chair. Strength is gradually improved. Will need nursing staff for physical therapy that is in her ambulation wall physical therapy is unavailable over the weekend. Awaiting for swing bed placement. ROS: 10 point ROS as noted above, otherwise negative Physical Exam: Vitals: reviewed GEN: Alert, oriented, NAD CV: Regular rate & rhythm, no edema Pulm: Nonlabored respiraitons on 1L NC, diminished at bases b/l ABD: Soft, nontender, nondistended MSK: No joint tenderness Neuro: No focal deficits Problem List: 1. Suspected Septic Shock secondary to Left Lower Extremity Cellulitis with ESBL Escherichia Coli Bacteremia 2. Subacute Left Parieto-Occipital CVA 3. Syncope 4. Dyslipidemia 5. Paroxysmal Atrial Fibrillation with RVR - now in sinus rhythm 6. History of DVT 7. Acute on Chronic Decompensated Systolic Congestive Heart Failure s/p AICD - resolved 8. Pulmonary Hypertension 9. MAY 10. Microscopic Hematuria suspect secondary to Traumatic Rojas Catheter Insertion 11. Degenerative Joint Disease with Moderate L1-L4 Neural Foraminal Narrowing 12. Bilateral Hip Arthritis 13. Urolithiasis 14. Stage II Sacral Pressure Ulcer - POA 15. Stage I Left Heel Pressure Ulcer - POA PLAN: Continue with plan of care as mentioned below: 1. Antibiotic therapy 2. Continue with antiplatelet therapy 3. Continue with statin therapy 4. Continue with medication for rate control and anticoagulation 5. Continue with cardiac meds 6. Monitor renal function closely 7. Physical therapy evaluation 8. Ambulate and get patient out of bed to a chair 9. Skin care and monitor for worsening pressure ulcers 10. GI/DVT prophylaxis
[2023-03-10] MEDS: ACETAMINOPHEN 325 MG TABLET PO PRN (06:10)
[2023-03-10 06:15] LABS: Absolute Lymphocytes (CBC) 0.6 K/uL (0.7-4.9); Hematocrit 33.6 % (36.0-45.0); Lymphocytes % 5.3 % (15.3-44.8); MCV 87.5 fL (80-100); MPV 9.7 fL (7.6-11.3); RBC Red Blood Cell Count 3.84 M/uL (3.86-4.86)
[2023-03-10 06:29] LABS: Potassium 5.2 mEq/L (3.5-5.1)
--- NOTE | 2023-03-10 08:38 | RAD REPORT ---
[facility] DES[facility] 6[facility]58 [facility] CLINICAL HISTORY: pneumonia COMPARISON: Chest Single View dated 03/05/2023; Chest Pa And Lat (2 Views) dated 03/04/2023; Chest Sin gle View dated 02/28/2023; Chest Single View dated 02/28/2023 TECHNIQUE: Portable AP view of the chest. FINDINGS: Marked cardiomegaly. Progressive central interstitial prominence and fluffy mid to lower l dottie opacities. Right arm PICC unchanged in position. Left pacer/ AICD unchanged. . No pneumothorax . The mediastinal contours are unremarkable. IMPRESSION: Findings suggestive of central congestion/ CHF, progressively worsening.
[2023-03-10 08:39] LABS: Blood Morphology Comment NOTED (NOT SEEN); Hypochromasia 1+; Platelet Estimate ADEQ; White Blood Cell Scan NEUTROPHILIA (OK)
[2023-03-10 08:40] VITALS: TEMP 97.7
[2023-03-10] MEDS: ENSURE ENLIVE 237 ML CAN PO SCH (09:00)
[2023-03-10] MEDS: JUVEN PACKET PO SCH (09:00)
--- NOTE | 2023-03-10 09:41 | P.PN ---
Date of Service: 03/10/23 Chief Complaint: Syncope, A-fib with RVR, for Subjective: No new changes. Pending [employer] approval. Patient in bed, NAD. No new or worsening complaints. No acute events reported over the weekend. Physical Examination Temp Pulse Resp BP Pulse Ox 97.7 F 65 14 93/55 L 93 03/10/23 08:00 03/10/23 08:00 03/10/23 08:00 03/10/23 08:00 03/10/23 08:00 General: Alert, In no apparent distress, Oriented x2-3 HEENT: Atraumatic, Normocephalic. Missing teeth. Neck: Supple, JVD not distended Respiratory: Normal air movement. On 2L NC. Cardiovascular: No edema,irregular rhythm. Gastrointestinal: Normal bowel sounds, Soft and benign Musculoskeletal: No clubbing, No swelling. kyphosis Integumentary: No rashes. Onychomycosis. Urinary: Rojas catheter draining dark bre colored urine. Laboratory Data - Reviewed Microbiology Data - Reviewed Imagings Data: -CT Chest 02/26: "Pronounced cardiomegaly, mild central interstitial prominence, and prominent main pulmonary artery caliber, findings which suggest a degree of congestive heart failure, possibly with portal hypertension. Please correlate clinically. New rounded pleural-based opacity in the peripheral basal left lower lobe, could relate to atelectasis or early airspace disease. Improving aeration in the right lung base with probable residual atelectasis. Small bilateral pleural effusions are noted." - CT Head/Cervical Spine 02/26: "No acute traumatic intracranial or cervical spine findings. Left parieto-occipital region of hypoattenuation suggestive of a subacute infarct. Other sequelae of remote ischemia noted in the bilateral frontal regions." - CT Lumbar Spine 02/26: "No acute osseous abnormality." Medication List: Reviewed Assessment and Plan Problem List Hypertension Hyperlipidemia Congestive Heart Failure Atrial fibrillation with RVR Severe Sepsis Cellulitis Syncope Anemia Severe PCM * Allergies: Sulfa, Trimethoprim, Penicillins * E.coli ESBL Bacteremia Severe Sepsis, resolved - Blood cultures 02/26: Escherichia coli ESBL - Wound culture leg 02/26: Mixed armand - Urine culture 02/28: <10,000 CFU/mL - Leukocytosis resolved (WBC 7.8). Remains afebrile - Previously on Cefepime and Vancomycin (02/26-03/01) - Currently on Meropenem (started 03/01) Recommendations - E.coli ESBL bacteremia: Continue Merrem x 2 weeks (started 03/01). Day 10. - Continue supportive care and nutritional support as needed. - Physical therapy Pending insurance approval for [employer]. Case management following. ID will follow up with patient as needed. Case discussed with Prasad Gomez
[2023-03-10] MEDS ORDERED: ALBUMIN HUMAN 25% 100 ML IV ONE (09:43)
[2023-03-10] MEDS ORDERED: FUROSEMIDE 20 MG/ 2ML VIAL IV ONE (09:44)
[2023-03-10] MEDS: ASPIRIN 81 MG CHEWABLE TABLET PO SCH (10:05)
[2023-03-10] MEDS: MIDODRINE HCL 5 MG TABLET PO SCH ×2 (10:05→14:49)
[2023-03-10] MEDS: APIXABAN 5 MG TABLET PO SCH (10:05)
[2023-03-10] MEDS: GABAPENTIN 100 MG CAP PO SCH (10:06)
[2023-03-10] MEDS: FOLIC ACID 1 MG TABLET PO SCH (10:06)
[2023-03-10] MEDS: AMIODARONE HCL 200 MG TAB PO SCH (10:06)
[2023-03-10] MEDS: Meropenem 1,000 MG in NA CHLORIDE 0.9% 100 ML IV SCH (10:06)
[2023-03-10 10:54] LABS: Protime INR 2.86
[2023-03-10 13:49] VITALS: BP 106/63
--- NOTE | 2023-03-10 14:09 | P.PN ---
Nephrology Nephrology note (S) Lethargic when seen this AM, difficult to arouse but per Dr. Funes, awake/alert/responsive later this morning on his assessment. Vitals, medications, blood work and imaging reviewed in the chart. General: NAD, chronically ill appearing HEENT: Atraumatic, sclera anicteric Neck: Supple Respiratory: Normal air movement, non tachypnec Cardiovascular: Regular rate/rhythm mostly, no sig LE edema Gastrointestinal: Soft and benign, Non-distended. Rojas present Musculoskeletal: No lower fallon tenderness Integumentary: No rashes noted Neurological: Lethargic, difficult to arouse when seen earlier this AM Imagings Data: EXAM DESCRIPTION: RADChest Single View02/28/2023 11:08 am CLINICAL HISTORY: PICC line placment COMPARISON: Chest Single View dated 02/28/2023; Chest Single View dated 02/26/2023; Chest Single View dated 12/26/2022; Chest Single View dated 12/22/2022; Thorax Wo Con dated 02/26/2023 TECHNIQUE: Portable AP view of the chest. FINDINGS: PICC line has been retracted, its tip now projects over the superior cavoatrial junction. Stable cardiomegaly and right basilar opacification. No pneumothorax or effusion. The mediastinal contours are unremarkable. IMPRESSION: Interval retraction of the right arm PICC as above. EXAM DESCRIPTION: CT - Thorax Wo Con - 02/26/2023 8:36 pm CLINICAL HISTORY: R O PNA COMPARISON: Chest Abd Pelvis Wo Con dated 12/17/2022; Chest Single View dated 02/26/2023 TECHNIQUE: Axial thin cut images of the chest were obtained without IV contrast. Multiplanar reformats were generated and reviewed. All CT scans are performed using dose optimization technique as appropriate and may include automated exposure control or mA/KV adjustment according to patient size. FINDINGS: Partial improvement of aeration in the right lung base. Elevation of the right hemidiaphragm. New rounded pleural-based opacity in the peripheral basal left lower lobe, see image 32 axial series 201. Mild background central interstitial prominence. No pleural thickening. Small layering pleural effusions. . No pneumothorax. Pronounced cardiomegaly with mild to moderate pericardial effusion. Left chest wall pacer/ AICD in place. Prominent caliber of the main pulmonary artery, which may relate to pulmonary hypertension. No abnormal mediastinal or hilar masses or lymphadenopathy seen. No significant aortic or pulmonary artery findings. Assessment is limited in the absence of IV contrast. No chest wall mass or abnormal axillary lymphadenopathy. Evaluation of the solid abdominal structures reveals no suspicious findings. IMPRESSION: Pronounced cardiomegaly, mild central interstitial prominence, and prominent main pulmonary artery caliber, findings which suggest a degree of congestive heart failure, possibly with portal hypertension. Please correlate clinically. New rounded pleural-based opacity in the peripheral basal left lower lobe, could relate to atelectasis or early airspace disease. Improving aeration in the right lung base with probable residual atelectasis. Small bilateral pleural effusions are noted. Conclusions/Impression: Stage I MAY likely multifactorial complicated by episodic hypotension CKD III unspecified with proteinuria notable on spot urine testing -Cr level has bumped up, cont to monitor closely, UOP on the lower end Microscopic Hematuria, unspecified -Some debris/other noted on CT imaging of the pelvis, prior renal imaging on CT did not show stones. Re-assess in a few weeks Hypotension -Continue Midodrine for now, dose IV Albumin once this AM Systolic CHF, chronic Pulm congestion -Will need maintenance lasix, dose IV lasix once post Albumin and assess response Miguelangel Lopez MD, NINFA
--- NOTE | 2023-03-10 15:04 | P.DS ---
Admission Date: 02/26/23 Discharge Date: 03/10/23 Disposition: TRANSFER TO [facility] Comment: [facility] Discharge Condition: GOOD Reason for Admission: Syncope, A-fib with RVR, for Consultations: 1. Cardiology 2. Neurology 3. Nephrology 4. Infectious Diseases Hospital Course: DIAGNOSES: # Suspected Septic Shock secondary to Left Lower Extremity Cellulitis with ESBL Escherichia Coli Bacteremia # Subacute Left Parieto-Occipital Cerebrovascular Accident # Paroxysmal Atrial Fibrillation with Rapid Ventricular Response - now in sinus rhythm # Acute on Chronic Decompensated Systolic Congestive Heart Failure with Reduced Ejection Fraction s/p AICD - resolved # Syncope - suspect due to above # KDIGO Stage I Acute Kidney Injury # Stage II Sacral Pressure Ulcer - POA # Stage I Left Heel Pressure Ulcer - POA # Dyslipidemia # History of Deep Venous Thrombosis # Pulmonary Hypertension # Microscopic Hematuria suspect secondary to Traumatic Rojas Catheter Insertion # Degenerative Joint Disease with Moderate L1-L4 Neural Foraminal Narrowing # Bilateral Hip Arthritis # Urolithiasis HOSPITAL COURSE: Ms. Tawny León is a 77 year old female with a past medical history significant for dyslipidemia, prior deep venous thrombosis, chronic systolic congestive heart failure, who was admitted to the [facility] on 02/26/2023 for syncope. She was admitted to the Medicine service. Upon further evaluation, she was found to have atrial fibrillation with rapid ventricular response. Cardiology was consulted and she was evaluated by Dr. Howe. He recommended amiodarone and, following treatment, her rhythm converted to normal sinus rhythm. He recommended that she be discharged on amiodarone + apixaban. On presentation, she was found to have lactic acidosis as well as hypotension. These findings in combination with her lower extremity cellulitis raised concern for septic shock. Her blood cultures would return positive for ESBL Escherichia Coli. Infectious Diseases was consulted and she was evaluated by Dr. Yin. He recommended that she be discharged with 14 days of IV meropenem. Of note, she was also found to have a mild decompensated congestive heart failure exacerbation. Dr. Howe evaluated her and she was treated with IV furosemide. Over the course of her hospitalization, her symptoms improved significantly. Additionally, her CT head revealed, "no acute traumatic intracranial or cervical spine findings. Left parieto-occipital region of hypoattenuation suggestive of a subacute infarct. Other sequelae of remote ischemia noted in the bilateral frontal regions." Neurology was consulted and she was evaluated by Dr. Gauthier. He recommended continued PT services and discharge on apixaban only. He recommended against prolonged aspirin use due to her being a high fall/bleeding risk. This morning, she stated that she felt significantly better and was interested in being discharged. With the assistance of case management, she was acceted to [facility]. I completed a doc-to-doc with Dr. Mccallum, who has generously accepted her for transfer. I have also spoken with Dr. Lopez (Nephrology), who will continue to follow her along at [facility]. On 03/10/2023, she was seen on rounds and deemed medically stable for discharge. She was discharged with instructions to schedule follow-up appointments with her PCP, with Neurology (Dr. Gauthier), with Cardiology (Dr. Howe), and with Nephrology (Dr. Lopez). She was given the opportunity to ask questions and reported no further questions. Furthermore, all questions were answered to the best of my ability. A copy of this discharge summary will be sent to the above providers to facilitate continuity of care. Today, I personally spent 35 minutes on her case, of which greater than 50% of the time was spent in patient education, counseling, and coordination of care as described above. - Physical Exam General: Alert, In no apparent distress, Oriented x3 HEENT: Atraumatic, Mucous membr. moist/pink, Sclerae nonicteric Neck: JVD not distended Respiratory: Clear to auscultation bilaterally, Diminished Cardiovascular: No edema, No murmurs, Regular rate/rhythm Gastrointestinal: Normal bowel sounds, Soft, Non-distended, No tenderness Musculoskeletal: No clubbing Integumentary: No rashes Neurological: Normal speech, Sensation intact, Normal affect Vital Signs/Physical Exam: Temp Pulse Resp BP Pulse Ox 97.7 F 60 15 106/63 94 03/10/23 09:00 03/10/23 12:00 03/10/23 12:00 03/10/23 12:03/10/23 12:00 Laboratory Data at Discharge: WBC 12.10 thou/uL (4.3-10.9) H 03/10/23 05:53 Hgb 10.6 g/dL (12.0-15.0) L 03/10/23 05:53 Hct 33.6 % (36.0-45.0) L 03/10/23 05:53 Plt Count 192 thou/uL (152-406) 03/10/23 05:53 PT 31.5 SECONDS (9.5-12.5) H 03/10/23 10:23 INR 2.86 03/10/23 10:23 APTT 26.8 SECONDS (24.3-36.9) 02/26/23 13:35 Sodium 139 mEq/L (136-145) 03/10/23 05:53 Potassium 3.9 mEq/L (3.5-5.1) D 03/10/23 13:47 BUN 54 mg/dL (7-18) H 03/10/23 05:53 Creatinine 1.16 mg/dL (0.55-1.02) H 03/10/23 05:53 Glucose 139 mg/dL (74-106) H 03/10/23 05:53 Uric Acid 11.5 mg/dL (2.6-6.0) H 03/03/23 04:00 Phosphorus 2.7 mg/dL (2.5-4.9) 02/28/23 02:47 Magnesium 2.1 mg/dL (1.6-2.4) 03/07/23 04:45 Total Bilirubin 0.7 mg/dL (0.2-1.0) 03/07/23 04:45 AST 32 U/L (15-37) 03/07/23 04:45 ALT 51 U/L (13-56) 03/07/23 04:45 Alkaline Phosphatase 235 U/L (45-117) H 03/07/23 04:45 Triglycerides 91 mg/dL (<150) 02/28/23 02:47 Cholesterol 83 mg/dL (<200) 02/28/23 02:47 HDL Cholesterol 20 mg/dL (40-60) L 02/28/23 02:47 Cholesterol/HDL Ratio 4.15 02/28/23 02:47 Home Medications: Apixaban [Eliquis] 5 mg PO BID 03/05/23 Atorvastatin Calcium [Lipitor] 40 mg PO BEDTIME 03/05/23 Carvedilol [Coreg] 3.125 mg PO BID 03/05/23 Digoxin [Lanoxin*] 125 mcg PO SEECOM 03/05/23 Furosemide [Lasix*] 20 mg PO BID 03/05/23 Magnesium Oxide [Mag 0X*] 500 mg PO DAILY 03/05/23 Potassium Chloride 20 meq PO DAILY 03/05/23 Amiodarone HCl [Cordarone*] 200 mg PO BID #60 tab 03/10/23 Benzonatate [Tessalon Perle*] 100 mg PO TID PRN #90 cap 03/10/23 Calcium Carbonate [Tums Regular*] 500 mg PO BID PRN #60 tab 03/10/23 Ensure Enlive 237 ml PO BID #60 can 03/10/23 Gabapentin [Neurontin*] 100 mg PO BID #60 cap 03/10/23 Romero [Romero*] 1 pkt PO BID #60 03/10/23 Midodrine HCl [Proamatine*] 5 mg PO TID #90 tab 03/10/23 New Medications: Amiodarone HCl [Cordarone*] 200 mg PO BID #60 tab Ensure Enlive 237 ml PO BID #60 can Romero [Romero*] 1 pkt PO BID #60 Gabapentin [Neurontin*] 100 mg PO BID #60 cap Midodrine HCl [Proamatine*] 5 mg PO TID #90 tab Benzonatate [Tessalon Perle*] 100 mg PO TID PRN #90 cap PRN Reason: Cough Calcium Carbonate [Tums Regular*] 500 mg PO BID PRN #60 tab PRN Reason: Indigestion Physician Discharge Instructions: OK TO DC IV AND DC TO [facility] FOLLOW-UP WITH PRIMARY CARE PROVIDER IN 1-2 WEEKS - YOU WERE FOUND TO HAVE ARTHRITIS IN YOUR BACKS AND HIPS - PLEASE DISCUSS WITH YOUR PCP - YOU WERE FOUND TO HAVE BLADDER STONES AND A SMALL AMOUNT OF BLOOD IN YOUR URINE - PLEASE DISCUSS WITH YOUR PCP FOLLOW-UP WITH NEUROLOGY AND NEPHROLOGY IN 1-2 WEEKS RETURN TO THE ER IF SYMPTOMS WORSENS CALL DR. HENRY AT [phone] IF ANY QUESTIONS REGARDING HOSPITAL STAY. PLEASE CALL THE FLOOR AT [phone] IF ANY MEDICATION OR NURSING QUESTIONS. Diet: AHA Activity: Fall precautions Followup: Arnulfo Mccallum MD [COURTESY - CAN ADMIT] - Dalton Howe MD [ACTIVE - CAN ADMIT] - Alex Gauthier MD [ASSOCIATE-ACTIVE - CAN ADMIT] - Miguelangel Yin MD [ACTIVE - CAN ADMIT] - Miguelangel Lopez [ACTIVE - CAN ADMIT] - Time spent managing pt's care (in minutes): 35
[2023-03-10 16:01] VITALS: O2SAT 95
== END 2023-03-10 16:21 | DRG 871 ==
LOC: ER 13:21 → ERHOLD 18:02 → 2ND 19:10
PROVIDERS: ADMIT Internal Medicine; ATTEND Internal Medicine
PROC: 02HV33Z Insertion of Infusion Device into Superior Vena Cava, Percutaneous Approach (ICD-10-PCS; principal; 2023-02-28)
DX: A41.51 Sepsis due to Escherichia coli [E. coli] (principal); I50.23 Acute on chronic systolic (congestive) heart failure; R65.21 Severe sepsis with septic shock; L03.116 Cellulitis of left lower limb; Z16.12 Extended spectrum beta lactamase (ESBL) resistance; N17.9 Acute kidney failure, unspecified; E87.1 Hypo-osmolality and hyponatremia; E44.0 Moderate protein-calorie malnutrition; I13.0 Hypertensive heart and chronic kidney disease with heart failure and stage 1 through stage 4 chronic kidney disease, or unspecified chronic kidney disease; N18.30 Chronic kidney disease, stage 3 unspecified; D63.1 Anemia in chronic kidney disease; I48.0 Paroxysmal atrial fibrillation; G47.00 Insomnia, unspecified; I27.20 Pulmonary hypertension, unspecified; M13.852 Other specified arthritis, left hip; M13.851 Other specified arthritis, right hip; E78.00 Pure hypercholesterolemia, unspecified; N20.9 Urinary calculus, unspecified; E86.0 Dehydration; D63.8 Anemia in other chronic diseases classified elsewhere; E88.09 Other disorders of plasma-protein metabolism, not elsewhere classified; L89.152 Pressure ulcer of sacral region, stage 2; L89.621 Pressure ulcer of left heel, stage 1; I69.398 Other sequelae of cerebral infarction; R55 Syncope and collapse; R31.29 Other microscopic hematuria; R29.702 NIHSS score 2; Z88.0 Allergy status to penicillin; Z88.1 Allergy status to other antibiotic agents; Z79.01 Long term (current) use of anticoagulants; Z68.25 Body mass index [BMI] 25.0-25.9, adult; Z79.02 Long term (current) use of antithrombotics/antiplatelets; Z95.810 Presence of automatic (implantable) cardiac defibrillator; Z96.651 Presence of right artificial knee joint; W18.30XA Fall on same level, unspecified, initial encounter; Y92.039 Unspecified place in apartment as the place of occurrence of the external cause; Y99.9 Unspecified external cause status; Y93.9 Activity, unspecified
CPT/HCPCS: 36415; 36569; 51702; 70450; 71045; 71046; 71250; 72125; 72131; 72192; 80048; 80053; 80061; 80076; 80202; 81001; 82043; 82248; 82550; 82570; 82947; 83036; 83605; 83735; 83880; 84100; 84132; 84156; 84439; 84443; 84484; 84550; 85025; 85610; 85730; 87040; 87070; 87077; 87086; 87088; 87186; 87205; 93005; 93880; 96365; 96375; 97110; 97116; 97161; 97165; 97530; 99285; J0282; J0692; J1940; J2185; J2405; J3010; J3475; J7030; J7040; J7050; J7060; J7613; J7644; P9047